=== PATIENT | male | born 1940 | race Hispanic/Latino ===

== ENCOUNTER 2018-06-03 10:16 | Emergency (ER) | payer MEDICARE ==
[~2018-06-03] VITALS: Ht 157.5 cm; Wt 56.7 kg
[~2018-06-03 10:16] MED LIST: CILOSTAZOL50 MG PO; CLOPIDOGREL75 MG PO; CRESTOR5 MG PO; ENALAPRIL MALE2.5 MG PO; FENOFIBRATE134 MG PO; FLOMAX0.4 MG PO; FOLIC ACID1 MG PO; GLIMEPIRIDE4 MG PO; HUMALOG100 UNIT/3; LANTUS100 UNITS/; MAGNESIUM500 MG PO; METFORMIN HCL1000 MG PO; METHOTREXATE2.5 MG PO; OXYBUTYNIN CHLOR5 MG PO; SLO-NIACIN500 MG PO; ULTRACET TABLE1 EACH PO
--- OUTSIDE RECORDS SUMMARY | 2018-06-03 10:19 | XMS REPORT | Clinical Summary ---
Author Author [facility] Organization [facility] Address Unknown Phone Unavailable Care Team Providers Care Gasoline [employer] Name Role Phone Asked, No Pcp PCP Unavailable Allergies Comments Active Allergy Reactions Severity Noted Date Specifically pecans! Chocolate Flavor 12/07/2012 Lemon Juice Itching 12/07/2012 Other=redness North Powder Itching, 12/07/2012 Other (See Comments) Penicillins Anaphylaxis High Pineapple Itching 12/07/2012 Medications End Date Status Medication Sig Dispensed Refills Start Date Active cholecalciferol, vitamin Take 50,000 0 D3, 50,000 unit tablet Units by mouth. Active cilostazol (PLETAL) 50 MG Take 50 mg by 0 tablet mouth. Active clopidogrel (PLAVIX) 75 Take 75 mg by 0 mg tablet mouth. Active enalapril (VASOTEC) 5 MG Take 5 mg by 0 tablet mouth. Active fenofibrate micronized Take 134 mg 0 (LOFIBRA) 134 MG capsule by mouth. Active fluticasone (FLONASE) 50 1 spray into 0 mcg/actuation nasal spray each nostril. Active folic acid (FOLVITE) 1 MG Take 1 mg by 0 tablet mouth. Active glimepiride (AMARYL) 4 MG Take 4 mg by 0 tablet mouth. Active insulin GLARGINE (LANTUS) Inject 45 0 100 unit/mL injection Units under (vial) the skin. Active magnesium gluconate Take 500 mg 0 (MAGONATE) 27.5 mg (500 by mouth. mg) tablet Active metFORMIN (GLUCOPHAGE) Take 1,000 mg 0 1,000 mg tablet by mouth. Active niacin 500 MG tablet Take 500 mg 0 by mouth. Active rosuvastatin (CRESTOR) 5 Take 5 mg by 0 MG tablet mouth. Active tamsulosin (FLOMAX) 0.4 Take 0.4 mg 0 mg capsule,extended by mouth. release 24hr Active lancets misc Use as 0 instructed 7 Active blood-glucose meter Use as 0 (ACCU-CHEK NEO PLUS directed 7 METER) misc Active albuterol (PROAIR Inhale 2 0 HFA,PROVENTIL puffs. 7 HFA,VENTOLIN HFA) 90 mcg/actuation inhaler Active oxybutynin XL Take 10 mg by 0 (DITROPAN-XL) 10 MG 24 hr mouth. tablet Active insulin asp prt-insulin Inject under 0 ASPART (NovoLOG 70/30) the skin. 100 unit/mL (70-30) injection Active Problems No known active problems Social History Date Tobacco Use Types Packs/Day Years Used Former Smoker Alcohol Use Drinks/Week oz/Week Comments No Sex Assigned at Date Recorded Not on file Industry Job Start Date Occupation Not on file Not on file Not on file Travel End Travel History Travel Start No recent travel history available. Last Filed Vital Signs Not on file Plan of Treatment Health Maintenance Due Date Last Done Comments SHINGLES VACCINES (1 of 1992 2) INFLUENZA VACCINE 11/26/2017 01/19/2016, 01/03/2015, 01/25/2014, Additional history exists PNEUMOCOCCAL Completed 01/25/2014 POLYSACCHARIDE VACCINE AGE 65 AND OVER PNEUMOCOCCAL-13 Completed 03/17/2015 Results Not on fileafter 06/02/2017 Insurance Payer Benefit Subscriber ID Type Phone Address Plan / Group [facility] [facility] H[facility] ADVANTAGE [facility] jayden (Home) [place] [address] Advance Directives Patient has advance care planning documents on file. For more information, deo timmons contact: Bang Murray [address] [place] [address]
--- OUTSIDE RECORDS SUMMARY | 2018-06-03 10:21 | XMS REPORT ---
Author Author [facility] Address Unknown Phone Unavailable Care Team Providers Care Lab Technician Name Role Phone DORIS ARAIZA Unavailable Unavailable SHERIF GUEVARA Unavailable Unavailable MIKAYLA MARTINEZ Unavailable Unavailable MORTAZAVI, ALI Unavailable Unavailable MARY ANNE MORRIS Unavailable Unavailable KAROLINA ROMERO Unavailable Unavailable YA, GRICEL Unavailable Unavailable SABRINA GEIGER Unavailable Unavailable TRAVIS AVILES Unavailable Unavailable VANESSA JUSTIN Unavailable Unavailable Problems This patient has no known problems. Allergies, Adverse Reactions, Alerts This patient has no known allergies or adverse reactions. Medications This patient has no known medications. Results Test Description Test Time Test Comments Text Results Atomic Results Result Comments FUNGUS CULTURE + SMEAR 2018-06-02 16:27:00 CULTURE (BEAKER) (test tquz=2670) No fungus isolated in 28 days FUNGUS SMEAR (BEAKER) (test rvob=7780) No fungi seen [id number] 15:00:00Medical Cytology Report Case: [id number] Authorizing Provider: Apollo Romero MD Collected: 05/08/2018 1438 Ordering Location: [address] Received: 05/11/2018 0957 Service Pathologist: Shani Gonzalez MD Specimen: Lung, Left Upper Lobe, BAL LEFT UPPER LOBE LUNG BAL (CYTOSPINS): - NEGATIVE FOR MALIGNANCY - THE GMS STAINS ARE NEGATIVE FOR PNEUMOCYSTIS ORGANISMS AND OTHER FUNGI. - NO VIRAL INCLUSIONS ARE SEEN. - ACUTE INFLAMMATORY CELLS, NOT PROMINENT Signing Pathologist Direct Phone Line: [phone] signed by Shani Gonzalez MD on 05/11/2018 at 3:00 [id number], [id number] infiltrates, history of small cell carcinoma, status post chemo radiation completed 01/2018LEFT UPPER LOBE LUNG BAL32 mls in cytorich red; 3 cytospins, 1 GMS Collected: [id number]: [id number] BAL sample shows respiratory epithelial cells, pulmonary alveolar macrophages, and some acute inflammatory cells, the latter not abundant. Other significant features are not notedSatisfactoryThe interpretation of this case included the use of immunohistochemistry or special stains. GMS Immunohistochemistry technical testing was performed at [facility], Pathology Laboratory where it was developed and its performance charac teristics were determined. It has not been cleared or approved by the U.S. Food and Drug Administration. The FDA has determined that such clearance or approval is not necessary. The test is used for clinical purposes. It should not be regar ded as investigational or for research. This laboratory is certified under the [facility] Laboratory Improvement Amendments of 1988 (CLIA-88) as qualified to perf orm high complexity clinical laboratory testing.[facility] , Department of Pathology, [address] [place] [address], [facility], [facility] of [facility]ology, [address] [place] [address], [facility], Departme nt of Pathology, [address] [place] [address], BRONCHIAL CULTURE + GRAM [id number] 12:25:00* Test Item Value Reference Range Comments CULTURE (BEAKER) (test eoej=0008) 2+ Normal respiratory kostas present GRAM STAIN RESULT (BEAKER) (test hgrg=5092) 2+ WBCs GRAM STAIN RESULT (BEAKER) (test fbxo=05781) 2+ gram positive cocci in chains and pairs GRAM STAIN RESULT (BEAKER) (test alql=46659) <1+ gram positive cocci in clusters GRAM STAIN RESULT (BEAKER) (test egow=897060) <1+ gram variable rods CYTOLOGY [id number] 11:01:00* Test Item Value Reference Range Comments CYTOLOGY RESULT POINTER (BEAKER) (test ckbg=3622) See Separate Report POCT-GLUCOSE [id number] 08:15:00* Test Item Value Reference Range Comments POC-GLUCOSE METER (BEAKER) (test nonz=0100) 219 mg/dL 70-110 TESTED AT [place] [address] BASIC METABOLIC [id number] 05:27:00* Test Item Value Reference Range Comments SODIUM (BEAKER) (test oqtk=427) 137 meq/L 136-145 POTASSIUM (BEAKER) (test hvgi=794) 4.2 meq/L 3.5-5.1 CHLORIDE (BEAKER) (test mtzz=146) 103 meq/L 98-107 CO2 (BEAKER) (test awza=386) 27 meq/L 22-29 BLOOD UREA NITROGEN (BEAKER) (test oycf=388) 35 mg/dL 7-21 CREATININE (BEAKER) (test wijz=944) 1.03 mg/dL 0.57-1.25 GLUCOSE RANDOM (BEAKER) (test zgde=269) 187 mg/dL 70-105 CALCIUM (BEAKER) (test xjsp=445) 9.5 mg/dL 8.4-10.2 EGFR (BEAKER) (test itma=3947) 70 mL/min/1.73 sq m ESTIMATED GFR IS NOT ACCURATE CREATININE CLEARANCE IN PREDICTING GLOMERULAR FILTRATION RATE. ESTIMATED GFR IS NOT APPLICABLE FOR DIALYSIS PATIENTS. POCT-GLUCOSE [id number] 21:33:00* Test Item Value Reference Range Comments POC-GLUCOSE METER (BEAKER) (test cvpx=0448) 218 mg/dL 70-110 TESTED AT [address] [address] POCT-GLUCOSE [id number] 18:50:00* Test Item Value Reference Range Comments POC-GLUCOSE METER (BEAKER) (test flvt=7540) 95 mg/dL 70-110 TESTED AT [address] [address] POCT-GLUCOSE [id number] 11:59:00* Test Item Value Reference Range Comments POC-GLUCOSE METER (BEAKER) (test osnv=7882) 271 mg/dL 70-110 TESTED AT [address] [address] POCT-GLUCOSE [id number] 08:17:00* Test Item Value Reference Range Comments POC-GLUCOSE METER (BEAKER) (test upqp=7973) 338 mg/dL 70-110 TESTED AT [address] [address] SPIN/CONCENTRATION [id number] 01:48:00* Test Item Value Reference Range Comments CONCENTRATION CHARGED (BEAKER) (test mxck=6230) Done POCT-GLUCOSE [id number] 21:11:00* Test Item Value Reference Range Comments POC-GLUCOSE METER (BEAKER) (test pdod=9223) 355 mg/dL 70-110 Notified SUSAN BALBUENA/TESTED AT [address] [address] BODY FLUID CELL COUNT WITH [id number] 17:45:00* Test Item Value Reference Range Comments APPEARANCE FLUID (BEAKER) (test bfqg=506) Hazy Clear COLOR FLUID (BEAKER) (test xvhs=702) [place] Colorless, Straw RBC FLUID (BEAKER) (test bdoh=178) 1830 /cu mm <=1 ADJUSTED WBC FLUID (BEAKER) (test fqau=2783) 225 /cu mm <=5 LINING CELLS (BEAKER) (test odme=0151) 5 /cu mm <=1 NEUTROPHILS FLUID (BEAKER) (test mscb=0380) 18 % LYMPHS FLUID (BEAKER) (test yzqc=034) 14 % MONO/MACROPHAGE FLUID (BEAKER) (test yvui=182) 68 % EOSINOPHILS FLUID (BEAKER) (test cqix=543) 0 % BASO FLUID (BEAKER) (test xeup=342) 0 % CONTAINER BODY FLUID (BEAKER) (test evok=0623) EDTA Tube POCT-GLUCOSE [id number] 17:04:00* Test Item Value Reference Range Comments POC-GLUCOSE METER (BEAKER) (test gbnw=8534) 220 mg/dL 70-110 TESTED AT [address] [address] POCT-GLUCOSE [id number] 15:28:00* Test Item Value Reference Range Comments POC-GLUCOSE METER (BEAKER) (test kvuk=0835) 236 mg/dL 70-110 TESTED AT [address] [address] POCT-GLUCOSE [id number] 13:46:00* Test Item Value Reference Range Comments POC-GLUCOSE METER (BEAKER) (test updl=4636) 345 mg/dL 70-110 TESTED AT [address] [address] POCT-GLUCOSE [id number] 12:54:00* Test Item Value Reference Range Comments POC-GLUCOSE METER (BEAKER) (test tbnt=8275) 381 mg/dL 70-110 Baby tested Mother ID used/TESTED AT [facility] [address] [facility] [address] CBC W/PLT COUNT & AUTO [id number] 10:50:00* Test Item Value Reference Range Comments WHITE BLOOD CELL COUNT (BEAKER) (test oaqy=092) 8.8 K/ L 3.5-10.5 RED BLOOD CELL COUNT (BEAKER) (test vpdn=871) 3.31 M/ L 4.63-6.08 HEMOGLOBIN (BEAKER) (test skwo=510) 9.4 GM/DL 13.7-17.5 HEMATOCRIT (BEAKER) (test pwne=948) 28.0 % 40.1-51.0 MEAN CORPUSCULAR VOLUME (BEAKER) (test cboz=556) 84.6 fL 79.0-92.2 MEAN CORPUSCULAR HEMOGLOBIN (BEAKER) (test exse=317) 28.4 pg 25.7-32.2 MEAN CORPUSCULAR HEMOGLOBIN CONC (BEAKER) (test gqam=201) 33.6 GM/DL 32.3-36.5 RED CELL DISTRIBUTION WIDTH (BEAKER) (test hjue=900) 11.6 % 11.6-14.4 PLATELET COUNT (BEAKER) (test gwhz=408) 153 K/CU MM 150-450 MEAN PLATELET VOLUME (BEAKER) (test asyu=031) 10.9 fL 9.4-12.4 NUCLEATED RED BLOOD CELLS (BEAKER) (test ujdp=318) 0 /100 WBC 0-0 NEUTROPHILS RELATIVE PERCENT (BEAKER) (test pefk=247) 91 % LYMPHOCYTES RELATIVE PERCENT (BEAKER) (test iflh=305) 5 % MONOCYTES RELATIVE PERCENT (BEAKER) (test fpri=432) 3 % EOSINOPHILS RELATIVE PERCENT (BEAKER) (test emkf=232) 0 % BASOPHILS RELATIVE PERCENT (BEAKER) (test piyf=423) 0 % NEUTROPHILS ABSOLUTE COUNT (BEAKER) (test acgv=039) 8.02 K/ L 1.78-5.38 LYMPHOCYTES ABSOLUTE COUNT (BEAKER) (test hqww=599) 0.48 K/ L 1.32-3.57 MONOCYTES ABSOLUTE COUNT (BEAKER) (test oozp=295) 0.25 K/ L 0.30-0.82 EOSINOPHILS ABSOLUTE COUNT (BEAKER) (test erjr=557) 0.00 K/ L 0.04-0.54 BASOPHILS ABSOLUTE COUNT (BEAKER) (test srik=809) 0.01 K/ L 0.01-0.08 IMMATURE GRANULOCYTES-RELATIVE PERCENT (BEAKER) (test enls=7490) 1 % 0-1 PT/[id number] 10:36:00* Test Item Value Reference Range Comments PROTIME (BEAKER) (test qbga=656) 13.8 seconds 11.7-14.7 INR (BEAKER) (test uhok=206) 1.0 <=5.9 PARTIAL THROMBOPLASTIN TIME (BEAKER) (test tuux=746) 35.0 seconds 22.5-36.0 RECOMMENDED COUMADIN/WARFARIN INR THERAPY RANGESSTANDARD DOSE: 2.0 - 3.0 Inclu shay: PROPHYLAXIS for venous thrombosis, systemic embolization; TREATMENT for lu ous thrombosis and/or pulmonary embolus.HIGH RISK: Target INR is 2.5-3.5 for pat ients with mechanical heart valves.PROTHROMBIN TIME/[id number] 10:35:00* Test Item Value Reference Range Comments PROTIME (BEAKER) (test dahj=432) 13.8 seconds 11.7-14.7 INR (BEAKER) (test srch=685) 1.0 <=5.9 RECOMMENDED COUMADIN/WARFARIN INR THERAPY RANGESSTANDARD DOSE: 2.0 - 3.0 Inclu shay: PROPHYLAXIS for venous thrombosis, systemic embolization; TREATMENT for lu ous thrombosis and/or pulmonary embolus.HIGH RISK: Target INR is 2.5-3.5 for pat ients with mechanical heart valves.RAD, CHEST, 1 VIEW, NON [id number] 10:17:00Reason for exam:->PNAFINAL REPORT TECHNIQUE: Frontal chest radiograph dated 05/08/2018. CLINICAL HISTORY: PNA COMPARISON STUDY: Chest radiographs dated 02/20/2018 IMPRESSION:Since the prior examination, there appear to be interval increase in the fibrotic lung markings seen bilaterally. No focal consolidation. No pleural effusion or pneumothorax. Cardiomediastinal silhouette is normal in size. No pulmonary edema. Midline sternotomy wires are intact and well aligned. Signed: Osvaldo Lebroneport Verified Date/Time: 05/08/2018 10:17:10 Reading Location: [facility] Radiology Reading Room [id number] 06:20:00* Test Item Value Reference Range Comments MAGNESIUM (BEAKER) (test abjw=889) 1.7 mg/dL 1.6-2.6 BASIC METABOLIC [id number] 06:20:00* Test Item Value Reference Range Comments SODIUM (BEAKER) (test jwky=565) 136 meq/L 136-145 POTASSIUM (BEAKER) (test ebua=693) 4.2 meq/L 3.5-5.1 CHLORIDE (BEAKER) (test yekd=471) 100 meq/L 98-107 CO2 (BEAKER) (test kbls=016) 26 meq/L 22-29 BLOOD UREA NITROGEN (BEAKER) (test nyca=842) 34 mg/dL 7-21 CREATININE (BEAKER) (test zwco=218) 1.24 mg/dL 0.57-1.25 GLUCOSE RANDOM (BEAKER) (test oznb=408) 217 mg/dL 70-105 CALCIUM (BEAKER) (test saxu=982) 9.9 mg/dL 8.4-10.2 EGFR (BEAKER) (test cwcu=5308) 57 mL/min/1.73 sq m ESTIMATED GFR IS NOT ACCURATE CREATININE CLEARANCE IN PREDICTING GLOMERULAR FILTRATION RATE. ESTIMATED GFR IS NOT APPLICABLE FOR DIALYSIS PATIENTS. POCT-GLUCOSE [id number] 22:06:00* Test Item Value Reference Range Comments POC-GLUCOSE METER (BEAKER) (test xhok=2241) 185 mg/dL 70-[address] [facility] [address] [facility] [address] POCT-GLUCOSE [id number] 21:17:00* Test Item Value Reference Range Comments POC-GLUCOSE METER (BEAKER) (test zcrw=7523) 219 mg/dL 70-[address] [facility] [address] [facility] [address] POCT-GLUCOSE [id number] 18:02:00* Test Item Value Reference Range Comments POC-GLUCOSE METER (BEAKER) (test uhxr=7819) 316 mg/dL 70-110 Will Repeat Test/TESTED AT [facility] [address] [facility] [address] TROPONIN [id number] 14:24:00* Test Item Value Reference Range Comments TROPONIN I (BEAKER) (test wznu=038) 0.07 ng/mL 0.00-0.03 Troponin I (TnI) levels must be interpreted in the context of the presenting sym ptoms and the clinical findings. Elevated TnI levels indicate myocardial damage, but are not specific for ischemic heart disease. Elevated TnI levels are seen in patients with other cardiac conditions (including myocarditis and congestive h eart failure), and slight TnI elevations occur in patients with other conditions , including sepsis, renal failure, acidosis, acute neurological disease, and per sistent tachyarrhythmia.POCT-GLUCOSE [id number] 13:02:00* Test Item Value Reference Range Comments POC-GLUCOSE METER (BEAKER) (test autq=7579) 408 mg/dL 70-110 TESTED AT [place] [id number] [facility] [address] POCT-GLUCOSE [id number] 13:02:00* Test Item Value Reference Range Comments POC-GLUCOSE METER (BEAKER) (test dpnw=0382) 347 mg/dL 70-110 TESTED AT [address] [address] RESPIRATORY PANEL [id number] 11:03:00* Test Item Value Reference Range Comments HUMAN METAPNEUMOVIRUS (BEAKER) (test ekmv=4412) Not detected Not detected, Equivocal RHINOVIRUS (BEAKER) (test kfgv=8973) Not detected Not detected, Equivocal INFLUENZA A (BEAKER) (test tpfu=4247) Not detected Not detected, Equivocal INFLUENZA A (NO SUBTYPE) (test uivx=5820) Not detected, Equivocal INFLUENZA A SUBTYPE H1 (BEAKER) (test cymy=2607) Not detected, Equivocal INFLUENZA A SUBTYPE H3 (BEAKER) (test rnku=9882) Not detected, Equivocal INFLUENZA A SUBTYPE H1-2009 (BEAKER) (test lgpy=1286) Not detected, Equivocal INFLUENZA B (BEAKER) (test couc=5966) Not detected Not detected, Equivocal RESPIRATORY SYNCYTIAL VIRUS (BEAKER) (test poqb=0468) Not detected Not detected, Equivocal PARAINFLUENZA VIRUS 1 (BEAKER) (test uipe=3903) Not detected Not detected, Equivocal PARAINFLUENZA VIRUS 2 (BEAKER) (test xuyy=6054) Not detected Not detected, Equivocal PARAINFLUENZA VIRUS 3 (BEAKER) (test wbrn=7236) Not detected Not detected, Equivocal PARAINFLUENZA VIRUS 4 (BEAKER) (test veoh=8370) Not detected Not detected, Equivocal ADENOVIRUS (BEAKER) (test ydup=9166) Not detected Not detected, Equivocal CORONAVIRUS 229E (BEAKER) (test vsgc=1755) Not detected Not detected, Equivocal CORONAVIRUS HKU1 (BEAKER) (test aujk=5946) Not detected Not detected, Equivocal CORONAVIRUS NL63 (BEAKER) (test wlxy=6042) Not detected Not detected, Equivocal CORONAVIRUS OC43 (BEAKER) (test cvoh=6999) Not detected Not detected, Equivocal BORDETELLA PERTUSSIS (BEAKER) (test ianp=1664) Not detected Not detected, Equivocal CHLAMYDOPHILA PNEUMONIAE (BEAKER) (test eptx=5923) Not detected Not detected, Equivocal MYCOPLASMA PNEUMONIAE (BEAKER) (test obfs=6905) Not detected Not detected, Equivocal Other viruses and bacteria not targeted by this PCR panel cannot be excluded; th erefore clinical correlation and follow up of serology, culture results, and oth er molecular studies is required. The results are not intended to be used as the sole means for clinical diagnosis or patient management decisions. This sample was tested at the [facility] using the [employer] rray Respiratory Panel. It is FDA cleared and has been verified and approved by the [facility] for clinical use on nasal swab specim ens. It is not FDA-cleared for use on bronchial wash/lavage samples. However, fo r this sample type, validation was performed and test characteristics were deter mined and approved, by [facility] for clinical use u nder the Clinical Laboratory Improvement Amendments (CLIA) of 1988 requirements. Therefore, FDA clearance is not required. This laboratory is CLIA-certified and [employer] [place] [employer] ([employer])-accredited to perform high complexity t esting.TROPONIN [id number] 05:09:00* Test Item Value Reference Range Comments TROPONIN I (ARIADNA) (test zgvy=309) 0.09 ng/mL 0.00-0.03 Troponin I (TnI) levels must be interpreted in the context of the presenting sym ptoms and the clinical findings. Elevated TnI levels indicate myocardial damage, but are not specific for ischemic heart disease. Elevated TnI levels are seen in patients with other cardiac conditions (including myocarditis and congestive h eart failure), and slight TnI elevations occur in patients with other conditions , including sepsis, renal failure, acidosis, acute neurological disease, and per sistent tachyarrhythmia.B-TYPE NATRIURETIC FACTOR (BNP)2018-05-07 05:06:00* Test Item Value Reference Range Comments B-TYPE NATRIURETIC PEPTIDE (BEAKER) (test tamb=462) 164 pg/mL 0-100 [id number] 05:01:00* Test Item Value Reference Range Comments MAGNESIUM (BEAKER) (test egcp=571) 1.5 mg/dL 1.6-2.6 BASIC METABOLIC [id number] 05:01:00* Test Item Value Reference Range Comments SODIUM (BEAKER) (test iqgj=148) 133 meq/L 136-145 POTASSIUM (BEAKER) (test vaia=867) 4.4 meq/L 3.5-5.1 CHLORIDE (BEAKER) (test epkq=084) 97 meq/L 98-107 CO2 (BEAKER) (test tuyc=202) 25 meq/L 22-29 BLOOD UREA NITROGEN (BEAKER) (test gyhd=529) 21 mg/dL 7-21 CREATININE (BEAKER) (test xine=065) 1.12 mg/dL 0.57-1.25 GLUCOSE RANDOM (BEAKER) (test kpjp=576) 269 mg/dL 70-105 CALCIUM (BEAKER) (test cqot=236) 10.2 mg/dL 8.4-10.2 EGFR (BEAKER) (test jyke=1269) 64 mL/min/1.73 sq m ESTIMATED GFR IS NOT ACCURATE CREATININE CLEARANCE IN PREDICTING GLOMERULAR FILTRATION RATE. ESTIMATED GFR IS NOT APPLICABLE FOR DIALYSIS PATIENTS. CBC W/PLT COUNT & AUTO [id number] 04:49:00* Test Item Value Reference Range Comments WHITE BLOOD CELL COUNT (BEAKER) (test heou=579) 5.2 K/ L 3.5-10.5 RED BLOOD CELL COUNT (BEAKER) (test vuyu=500) 3.37 M/ L 4.63-6.08 HEMOGLOBIN (BEAKER) (test qkow=433) 9.6 GM/DL 13.7-17.5 HEMATOCRIT (BEAKER) (test ubpu=442) 29.1 % 40.1-51.0 MEAN CORPUSCULAR VOLUME (BEAKER) (test zoym=394) 86.4 fL 79.0-92.2 MEAN CORPUSCULAR HEMOGLOBIN (BEAKER) (test ugln=555) 28.5 pg 25.7-32.2 MEAN CORPUSCULAR HEMOGLOBIN CONC (BEAKER) (test zsim=033) 33.0 GM/DL 32.3-36.5 RED CELL DISTRIBUTION WIDTH (BEAKER) (test whxu=436) 11.6 % 11.6-14.4 PLATELET COUNT (BEAKER) (test xbau=849) 140 K/CU MM 150-450 MEAN PLATELET VOLUME (BEAKER) (test vkez=790) 10.8 fL 9.4-12.4 NUCLEATED RED BLOOD CELLS (BEAKER) (test ghkd=923) 0 /100 WBC 0-0 NEUTROPHILS RELATIVE PERCENT (BEAKER) (test uwsi=339) 87 % LYMPHOCYTES RELATIVE PERCENT (BEAKER) (test zgsa=865) 10 % MONOCYTES RELATIVE PERCENT (BEAKER) (test lozd=462) 2 % EOSINOPHILS RELATIVE PERCENT (BEAKER) (test xebx=136) 1 % BASOPHILS RELATIVE PERCENT (BEAKER) (test aheb=132) 0 % NEUTROPHILS ABSOLUTE COUNT (BEAKER) (test gjco=422) 4.48 K/ L 1.78-5.38 LYMPHOCYTES ABSOLUTE COUNT (BEAKER) (test mfhg=747) 0.53 K/ L 1.32-3.57 MONOCYTES ABSOLUTE COUNT (BEAKER) (test axfi=646) 0.11 K/ L 0.30-0.82 EOSINOPHILS ABSOLUTE COUNT (BEAKER) (test fcjg=981) 0.03 K/ L 0.04-0.54 BASOPHILS ABSOLUTE COUNT (BEAKER) (test fevv=248) 0.01 K/ L 0.01-0.08 IMMATURE GRANULOCYTES-RELATIVE PERCENT (BEAKER) (test upud=3086) 0 % 0-1 RAPID INFLUENZA A&B [id number] 00:01:00* Test Item Value Reference Range Comments RAPID INFLUENZA A AG (BEAKER) (test szbv=8378) Negative Negative, Inconclusive RAPID INFLUENZA B AG (BEAKER) (test gytl=5311) Negative Negative, Inconclusive CBC W/PLT COUNT & AUTO [id number] 23:38:00* Test Item Value Reference Range Comments WHITE BLOOD CELL COUNT (BEAKER) (test xcyh=795) 6.0 K/ L 3.5-10.5 RED BLOOD CELL COUNT (BEAKER) (test pfxj=128) 3.15 M/ L 4.63-6.08 HEMOGLOBIN (BEAKER) (test enaw=737) 8.9 GM/DL 13.7-17.5 HEMATOCRIT (BEAKER) (test pybz=990) 27.3 % 40.1-51.0 MEAN CORPUSCULAR VOLUME (BEAKER) (test uaou=114) 86.7 fL 79.0-92.2 MEAN CORPUSCULAR HEMOGLOBIN (BEAKER) (test tacq=355) 28.3 pg 25.7-32.2 MEAN CORPUSCULAR HEMOGLOBIN CONC (BEAKER) (test fexl=619) 32.6 GM/DL 32.3-36.5 RED CELL DISTRIBUTION WIDTH (BEAKER) (test lsvp=977) 11.7 % 11.6-14.4 PLATELET COUNT (BEAKER) (test nxrj=645) 135 K/CU MM 150-450 MEAN PLATELET VOLUME (BEAKER) (test oaus=849) 10.1 fL 9.4-12.4 NUCLEATED RED BLOOD CELLS (BEAKER) (test ywot=985) 0 /100 WBC 0-0 NEUTROPHILS RELATIVE PERCENT (BEAKER) (test sbqy=247) 66 % LYMPHOCYTES RELATIVE PERCENT (BEAKER) (test yglf=629) 17 % MONOCYTES RELATIVE PERCENT (BEAKER) (test lccd=069) 11 % EOSINOPHILS RELATIVE PERCENT (BEAKER) (test rhnp=333) 5 % BASOPHILS RELATIVE PERCENT (BEAKER) (test fkgf=892) 1 % NEUTROPHILS ABSOLUTE COUNT (BEAKER) (test hhri=192) 3.91 K/ L 1.78-5.38 LYMPHOCYTES ABSOLUTE COUNT (BEAKER) (test emnn=614) 1.04 K/ L 1.32-3.57 MONOCYTES ABSOLUTE COUNT (BEAKER) (test orwo=099) 0.66 K/ L 0.30-0.82 EOSINOPHILS ABSOLUTE COUNT (BEAKER) (test imft=450) 0.30 K/ L 0.04-0.54 BASOPHILS ABSOLUTE COUNT (BEAKER) (test qrtu=575) 0.04 K/ L 0.01-0.08 IMMATURE GRANULOCYTES-RELATIVE PERCENT (BEAKER) (test rwos=7635) 0 % 0-1 CT, CHEST WITH IV CONTRAST- PE TEST [id number] 21:53:00Reason for exam:-> SHORTNESS OF BREATHReason for exam:->Elevated D dimerWhat is the patient's sedation requirement?->No SedationFINAL REPORT History: Shortness of breath, elevated d-dimer. TECHNIQUE: Helical CT of the chest was performed following the uneventful administration of intravenous contrast utilizing a pulmonary embolus protocol, multiple windows, sagittal and coronal reformations. This exam was performed according to our departmental dose optimization program which includes automated exposure control, adjustment of the mA and/or KV according to the patient's size and/or use of iterative reconstruction technique. FINDINGS: Correlation is made with prior CT of the chest performed October 30, 2017. The heart is mildly enlarged. Moderate atherosclerotic calcification of the thoracic aorta. The heart, mediastinum and great vessels are otherwise unremarkable. Specifically, there are no filling defects identified in the pulmonary arteries to suggest acute pulmonary emboli. No pathologic mediastinal or hilar adenopathy. 15 mm low-density nodule is pr esent in the posterior and inferior aspect of the right thyroid lobe, similar to the previous study. Thyroid gland is otherwise unremarkable. Central airways are patent. Patchy bilateral pulmonary airspace opacity is present and has increased significantly since the previous study. Mass in the periphery of the left upper lobe abutting the pleura persists but is less conspicuous than on the previous examination. This mass has been previously sampled by CT guidance. No new susp icious pulmonary nodules or masses are identified. No pleural effusions. Bronchi ectasis is noted in both lower lobes. Images obtained through the upper abdomen show a 15 mm low-density (0 Hounsfield units) lesion in the posterior lateral as pect of the right renal midpole, likely a benign cyst, but impossible to charact erize more definitively on this study. This lesion appears stable compared to pr evious exam. A small gallstone is also noted. Radiopaque density in the gastric antrum likely represents a recently ingested medication. Diffuse degenerative di sc disease is seen throughout the spine. Bones are otherwise unremarkable IMPRES WILLIAM: 1. No evidence for pulmonary embolus. Diffuse bilateral pulmonary airspace disease, possibly pneumonitis. There appears to be a component of chronic under lying interstitial lung disease as well including bronchiectasis. 2. Less conspi cuous mass in the left upper lobe. This lesion has been previously sampled with CT guidance on November 06, 2017. 3. Mild cardiomegaly and moderate atherosclerosis. 4. Probable right renal cyst, unchanged. 5. Cholelithiasis. No CT evidence for acute cholecystitis. Six. 15 mm right thyroid nodule, unchanged since the previo us study. Given the age of patient and size of the nodule, thyroid sonogram is r ecommended for further evaluation. Signed: Uyen Finch MDReport Verified Date/ Time: 05/06/2018 21:53:02 Reading Location: [facility] [id number] Consult Reading Room B-TYPE NATRIURETIC FACTOR (BNP)2018-05-06 20:17:00* Test Item Value Reference Range Comments B-TYPE NATRIURETIC PEPTIDE (BEAKER) (test ubkj=197) 160 pg/mL 0-100 TROPONIN [id number] 20:16:00* Test Item Value Reference Range Comments TROPONIN I (BEAKER) (test yutc=546) 0.08 ng/mL 0.00-0.03 Troponin I (TnI) levels must be interpreted in the context of the presenting sym ptoms and the clinical findings. Elevated TnI levels indicate myocardial damage, but are not specific for ischemic heart disease. Elevated TnI levels are seen in patients with other cardiac conditions (including myocarditis and congestive h eart failure), and slight TnI elevations occur in patients with other conditions , including sepsis, renal failure, acidosis, acute neurological disease, and per sistent tachyarrhythmia.COMPREHENSIVE METABOLIC [id number] 20:10:00* Test Item Value Reference Range Comments TOTAL PROTEIN (BEAKER) (test gctq=327) 7.0 gm/dL 6.0-8.3 ALBUMIN (BEAKER) (test agqc=6752) 3.7 g/dL 3.5-5.0 ALKALINE PHOSPHATASE (BEAKER) (test ayuj=615) 69 U/L 40-150 BILIRUBIN TOTAL (BEAKER) (test xtmp=977) 0.5 mg/dL 0.2-1.2 SODIUM (BEAKER) (test papp=366) 132 meq/L 136-145 POTASSIUM (BEAKER) (test ofuy=974) 4.1 meq/L 3.5-5.1 CHLORIDE (BEAKER) (test pqqw=405) 94 meq/L 98-107 CO2 (BEAKER) (test vqfg=182) 27 meq/L 22-29 BLOOD UREA NITROGEN (BEAKER) (test hxrv=161) 23 mg/dL 7-21 CREATININE (BEAKER) (test pyyf=637) 1.16 mg/dL 0.57-1.25 GLUCOSE RANDOM (BEAKER) (test kjhf=818) 296 mg/dL 70-105 CALCIUM (BEAKER) (test kdso=195) 9.9 mg/dL 8.4-10.2 AST (SGOT) (BEAKER) (test fjzh=153) 17 U/L 5-34 ALT (SGPT) (BEAKER) (test uumx=085) 10 U/L 6-55 EGFR (BEAKER) (test ywoi=4972) 61 mL/min/1.73 sq m ESTIMATED GFR IS NOT ACCURATE CREATININE CLEARANCE IN PREDICTING GLOMERULAR FILTRATION RATE. ESTIMATED GFR IS NOT APPLICABLE FOR DIALYSIS PATIENTS. CREATINE KINASE (CK)2018-05-06 20:10:00* Test Item Value Reference Range Comments CREATINE KINASE TOTAL (BEAKER) (test idip=829) 44 U/L 29-200 PT/[id number] 20:07:00* Test Item Value Reference Range Comments PROTIME (BEAKER) (test lcrz=119) 14.2 seconds 11.7-14.7 INR (BEAKER) (test syft=862) 1.1 <=5.9 PARTIAL THROMBOPLASTIN TIME (BEAKER) (test zbcd=079) 41.0 seconds 22.5-36.0 RECOMMENDED COUMADIN/WARFARIN INR THERAPY RANGESSTANDARD DOSE: 2.0 - 3.0 Inclu shay: PROPHYLAXIS for venous thrombosis, systemic embolization; TREATMENT for lu ous thrombosis and/or pulmonary embolus.HIGH RISK: Target INR is 2.5-3.5 for pat ients with mechanical heart valves.POCT-GLUCOSE [id number] 07:46:00* Test Item Value Reference Range Comments POC-GLUCOSE METER (BEAKER) (test ivgt=8787) 145 mg/dL 70-[address] [facility] [address] [facility] [address] CBC W/PLT COUNT & AUTO [id number] 07:41:00* Test Item Value Reference Range Comments WHITE BLOOD CELL COUNT (BEAKER) (test ygcm=041) 7.7 K/ L 3.5-10.5 RED BLOOD CELL COUNT (BEAKER) (test xayi=969) 3.45 M/ L 4.63-6.08 HEMOGLOBIN (BEAKER) (test bdok=286) 9.9 GM/DL 13.7-17.5 DISCORDANT HGB RESULT COMPARED TO PREVIOUS RESULT; CLINICAL CORRELATION REQUIRED. HEMATOCRIT (BEAKER) (test pahu=140) 30.4 % 40.1-51.0 MEAN CORPUSCULAR VOLUME (BEAKER) (test qefw=023) 88.1 fL 79.0-92.2 MEAN CORPUSCULAR HEMOGLOBIN (BEAKER) (test nxde=148) 28.7 pg 25.7-32.2 MEAN CORPUSCULAR HEMOGLOBIN CONC (BEAKER) (test iqcj=945) 32.6 GM/DL 32.3-36.5 RED CELL DISTRIBUTION WIDTH (BEAKER) (test grnu=740) 16.7 % 11.6-14.4 PLATELET COUNT (BEAKER) (test hufj=453) 25 K/CU MM 150-450 MEAN PLATELET VOLUME (BEAKER) (test ufkr=061) fL 9.4-12.4 Unable to report due to abnormal Platelet population distribution. NUCLEATED RED BLOOD CELLS (BEAKER) (test tpqb=035) 0 /100 WBC 0-0 (CELLAVISION MANUAL DIFF)2018-02-21 07:41:00* Test Item Value Reference Range Comments NEUTROPHILS - REL (CELLAVISION)(BEAKER) (test rsml=6610) 70 % LYMPHOCYTES - REL (CELLAVISION)(BEAKER) (test qtam=2261) 4 % MONOCYTES - REL (CELLAVISION)(BEAKER) (test ksop=9407) 9 % EOSINOPHILS - REL (CELLAVISION)(BEAKER) (test avjb=3234) 1 % BASOPHILS - REL (CELLAVISION)(BEAKER) (test gxch=7706) 1 % METAMYELOCYTES - REL (CELLAVISION)(BEAKER) (test baav=8156) 1 % 0-0 BANDS - REL (CELLAVISION)(BEAKER) (test wuyn=9165) 13 % 0-10 ATYPICAL LYMPHOCYTES - REL (CELLAVISION)(BEAKER) (test bvxn=7206) 1 % 0-0 NEUTROPHILS - ABS (CELLAVISION)(BEAKER) (test rdkj=8433) 5.39 K/ul 1.78-5.38 LYMPHOCYTES - ABS (CELLAVISION)(BEAKER) (test eeck=9326) 0.31 K/ul 1.32-3.57 MONOCYTES - ABS (CELLAVISION)(BEAKER) (test xvzb=2248) 0.69 K/uL 0.30-0.82 EOSINOPHILS - ABS (CELLAVISION)(BEAKER) (test bzmj=9768) 0.08 K/uL 0.04-0.54 BASOPHILS - ABS (CELLAVISION)(BEAKER) (test fwmk=5929) 0.08 K/uL 0.01-0.08 METAMYELOCYTES - ABS (CELLAVISION)(BEAKER) (test vvup=5521) 0.08 K/uL 0.00-0.00 BANDS - ABS (CELLAVISION)(BEAKER) (test tajp=5244) 1.00 K/uL 0.00-0.80 ATYPICAL LYMPHOCYTES - ABS (CELLAVISION)(BEAKER) (test obmj=2445) 0.08 K/uL 0.00-0.00 TOTAL COUNTED (BEAKER) (test kcya=5265) 100 MANUAL NRBC PER 100 CELLS (BEAKER) (test cmry=3785) 2 /100 WBC 0-0 PLT MORPHOLOGY (BEAKER) (test mkfm=581) Normal TOXIC GRANULATION (BEAKER) (test dkbe=319) Present ANISOCYTOSIS (BEAKER) (test ypkt=223) 1+ few MICROCYTES (BEAKER) (test sucw=583) 1+ few POIKILOCYTES (BEAKER) (test qhts=628) 3+ many ARTIFACT (CELLAVISION)(BEAKER) (test smfh=4235) Present PLATELET CONCENTRATION (CELLAVISION)(BEAKER) (test hcgs=7170) Decreased After blood transfusion completedReceived comment: After blood transfusion compl etedUser comments: Slide comments: [id number] 07:24:00* Test Item Value Reference Range Comments MAGNESIUM (BEAKER) (test towg=532) 1.1 mg/dL 1.6-2.6 BASIC METABOLIC [id number] 07:24:00* Test Item Value Reference Range Comments SODIUM (BEAKER) (test vxsd=131) 142 meq/L 136-145 POTASSIUM (BEAKER) (test qjyq=221) 4.7 meq/L 3.5-5.1 CHLORIDE (BEAKER) (test vppb=048) 104 meq/L 98-107 CO2 (BEAKER) (test mkqw=519) 30 meq/L 22-29 BLOOD UREA NITROGEN (BEAKER) (test ypbj=442) 13 mg/dL 7-21 CREATININE (BEAKER) (test tbjx=155) 0.88 mg/dL 0.57-1.25 GLUCOSE RANDOM (BEAKER) (test pnef=535) 133 mg/dL 70-105 CALCIUM (BEAKER) (test tlgh=188) 9.4 mg/dL 8.4-10.2 EGFR (BEAKER) (test speo=4884) 84 mL/min/1.73 sq m ESTIMATED GFR IS NOT ACCURATE CREATININE CLEARANCE IN PREDICTING GLOMERULAR FILTRATION RATE. ESTIMATED GFR IS NOT APPLICABLE FOR DIALYSIS PATIENTS. POCT-GLUCOSE [id number] 01:19:00* Test Item Value Reference Range Comments POC-GLUCOSE METER (BEAKER) (test ktbg=7146) 200 mg/dL 70-[address] [facility] [address] [facility] [address] RAD, CHEST, 2 [id number] 19:22:00Reason for exam:->ANEMIAReason for exam:-> lung cancer, cough, shortness of breath, symptomatic anemiaFINAL REPORT Comparison: 12/25/2017 TECHNIQUE: 2 views of the chest FINDINGS: Coarse interstitial markings bilaterally again noted, stable. Blunting of the bilateral costophrenic sulci suggestive of trace pleural effusion or thickening is stable. Focal airspace opacity in the left upper lobe presumably representing a previously biopsied lung zone nodule appears grossly stable in size. Cardiac silhouette is enlarged. Postsurgical changes in the mediastinum noted. 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 No acute skeletal abnormality. IMPRESSION: 1. No acute cardiopulmonary disease. Signed: Jonathan Clayeport Verified Date/Time: 02/20/2018 19:22:59 [facility] Sul[place] ctronically signed by: JONATHAN CLAY M.D. on 02/20/2018 07:22 PM CBC W/PLT COUNT & AUTO [id number] 18:23:00* Test Item Value Reference Range Comments WHITE BLOOD CELL COUNT (BEAKER) (test lmcb=582) 5.7 K/ L 3.5-10.5 RED BLOOD CELL COUNT (BEAKER) (test smyz=680) 2.09 M/ L 4.63-6.08 HEMOGLOBIN (BEAKER) (test cdee=831) 5.8 GM/DL 13.7-17.5 HEMATOCRIT (BEAKER) (test efij=725) 18.1 % 40.1-51.0 MEAN CORPUSCULAR VOLUME (BEAKER) (test cliq=159) 86.6 fL 79.0-92.2 MEAN CORPUSCULAR HEMOGLOBIN (BEAKER) (test kyzw=433) 27.8 pg 25.7-32.2 MEAN CORPUSCULAR HEMOGLOBIN CONC (BEAKER) (test vnaw=078) 32.0 GM/DL 32.3-36.5 RED CELL DISTRIBUTION WIDTH (BEAKER) (test tvfs=529) 15.9 % 11.6-14.4 PLATELET COUNT (BEAKER) (test dupq=179) 25 K/CU MM 150-450 MEAN PLATELET VOLUME (BEAKER) (test xlna=977) fL 9.4-12.4 Unable to report due to abnormal Platelet population distribution. NUCLEATED RED BLOOD CELLS (BEAKER) (test dyrn=379) 0 /100 WBC 0-0 (CELLAVISION MANUAL DIFF)2018-02-20 18:23:00* Test Item Value Reference Range Comments NEUTROPHILS - REL (CELLAVISION)(BEAKER) (test edkh=4979) 67 % LYMPHOCYTES - REL (CELLAVISION)(BEAKER) (test zqts=8103) 8 % MONOCYTES - REL (CELLAVISION)(BEAKER) (test rbae=9895) 4 % EOSINOPHILS - REL (CELLAVISION)(BEAKER) (test vxmg=8037) 1 % BASOPHILS - REL (CELLAVISION)(BEAKER) (test uvsz=4238) 1 % BANDS - REL (CELLAVISION)(BEAKER) (test bddc=3387) 18 % 0-10 NEUTROPHILS - ABS (CELLAVISION)(BEAKER) (test cgfk=5599) 3.82 K/ul 1.78-5.38 LYMPHOCYTES - ABS (CELLAVISION)(BEAKER) (test aswg=9546) 0.46 K/ul 1.32-3.57 MONOCYTES - ABS (CELLAVISION)(BEAKER) (test zzmt=5512) 0.23 K/uL 0.30-0.82 EOSINOPHILS - ABS (CELLAVISION)(BEAKER) (test rmsp=5453) 0.06 K/uL 0.04-0.54 BASOPHILS - ABS (CELLAVISION)(BEAKER) (test zone=1044) 0.06 K/uL 0.01-0.08 BANDS - ABS (CELLAVISION)(BEAKER) (test lwbf=0998) 1.03 K/uL 0.00-0.80 TOTAL COUNTED (BEAKER) (test mjkw=4655) 100 PLT MORPHOLOGY (BEAKER) (test nitb=630) Normal DOHLE BODIES (BEAKER) (test bfxt=658) Present TOXIC GRANULATION (BEAKER) (test drqa=422) Present POLYCHROMATOPHILLIC RBCS(BEAKER) (test reix=580) 1+ few HYPOCHROMIA (BEAKER) (test kfle=368) 1+ few ANISOCYTOSIS (BEAKER) (test lchj=728) 2+ moderate MICROCYTES (BEAKER) (test pczs=323) 2+ moderate POIKILOCYTES (BEAKER) (test cqwp=206) 1+ few ROULEAUX (BEAKER) (test ddlw=169) 1+ few ELLIPTOCYTES (BEAKER) (test zlly=738) 1+ few OVALOCYTES (BEAKER) (test wdzh=278) 1+ few TEAR DROP CELLS (BEAKER) (test vpch=094) 1+ few ARTIFACT (CELLAVISION)(BEAKER) (test rddd=1689) Present PLATELET CONCENTRATION (CELLAVISION)(BEAKER) (test xvfv=0274) Decreased Received comment: User comments: Slide comments: BASIC METABOLIC [id number] 18:15:00* Test Item Value Reference Range Comments SODIUM (BEAKER) (test jtih=907) 137 meq/L 136-145 POTASSIUM (BEAKER) (test yftn=465) 3.8 meq/L 3.5-5.1 CHLORIDE (BEAKER) (test kthf=090) 102 meq/L 98-107 CO2 (BEAKER) (test qlmq=808) 25 meq/L 22-29 BLOOD UREA NITROGEN (BEAKER) (test gqco=121) 13 mg/dL 7-21 CREATININE (BEAKER) (test uonb=713) 0.78 mg/dL 0.57-1.25 GLUCOSE RANDOM (BEAKER) (test ptdo=679) 157 mg/dL 70-105 CALCIUM (BEAKER) (test bprk=786) 8.8 mg/dL 8.4-10.2 EGFR (BEAKER) (test nacz=1442) 97 mL/min/1.73 sq m ESTIMATED GFR IS NOT ACCURATE CREATININE CLEARANCE IN PREDICTING GLOMERULAR FILTRATION RATE. ESTIMATED GFR IS NOT APPLICABLE FOR DIALYSIS PATIENTS. URINALYSIS W/ REFLEX URINE [id number] 16:36:00* Test Item Value Reference Range Comments COLOR (BEAKER) (test uwfr=590) Colorless CLARITY (BEAKER) (test kcei=768) Clear SPECIFIC GRAVITY UA (BEAKER) (test mxlr=447) 1.003 1.001-1.035 PH UA (BEAKER) (test jiby=084) 7.0 5.0-8.0 PROTEIN UA (BEAKER) (test aler=324) Negative Negative GLUCOSE UA (BEAKER) (test kosy=034) Negative Negative KETONES UA (BEAKER) (test pdjx=688) Negative Negative BILIRUBIN UA (BEAKER) (test zxod=601) Negative Negative BLOOD UA (BEAKER) (test vkor=433) Negative Negative NITRITE UA (BEAKER) (test hcid=700) Negative Negative LEUKOCYTE ESTERASE UA (BEAKER) (test hass=069) Negative Negative UROBILINOGEN UA (BEAKER) (test fbfm=718) 0.2 mg/dL 0.2-1.0 RBC UA (BEAKER) (test ddii=870) 0 /HPF WBC UA (BEAKER) (test nrjm=517) 0 /HPF SOURCE(BEAKER) (test hzbt=2466) RAD, CHEST, 2 [id number] 14:32:00Reason for exam:->shortness of breathFINAL REPORT TECHNIQUE: Frontal and lateral chest radiographs dated 12/25/2017. CLINICAL HISTORY: Shortness of breath COMPARISON STUDY: Chest radiograph dated 12/12/2017 FINDINGS: No change in diffuse bilateral inters titial lung markings compatible with fibrosis stable, bilateral pleural effusion s with associated atelectasis. No pneumothorax. Cardiomediastinal silhouette is stable in size. No pulmonary edema. Midline sternotomy wires are well aligned. N o fracture. Degenerative changes are seen in the spine. IMPRESSION: Stable exami nation when compared to prior study. Signed: Osvaldo Lebron Date/Time: 12/25/2017 14:32:51 Reading Location: [facility] Radiology Reading Room W/PLT COUNT & AUTO [id number] 13:54:00* Test Item Value Reference Range Comments WHITE BLOOD CELL COUNT (BEAKER) (test nosn=182) 4.0 K/ L 3.5-10.5 RED BLOOD CELL COUNT (BEAKER) (test cpci=757) 3.58 M/ L 4.63-6.08 HEMOGLOBIN (BEAKER) (test qcub=387) 9.8 GM/DL 13.7-17.5 HEMATOCRIT (BEAKER) (test yawg=165) 30.3 % 40.1-51.0 MEAN CORPUSCULAR VOLUME (BEAKER) (test ysyr=192) 84.6 fL 79.0-92.2 MEAN CORPUSCULAR HEMOGLOBIN (BEAKER) (test xcsl=004) 27.4 pg 25.7-32.2 MEAN CORPUSCULAR HEMOGLOBIN CONC (BEAKER) (test epmy=578) 32.3 GM/DL 32.3-36.5 RED CELL DISTRIBUTION WIDTH (BEAKER) (test zvdq=011) 17.4 % 11.6-14.4 PLATELET COUNT (BEAKER) (test ikzj=350) 172 K/CU MM 150-450 MEAN PLATELET VOLUME (BEAKER) (test ensj=241) 11.6 fL 9.4-12.4 NUCLEATED RED BLOOD CELLS (BEAKER) (test mrzk=734) 2 /100 WBC 0-0 (CELLAVISION MANUAL DIFF)2017-12-25 13:54:00* Test Item Value Reference Range Comments NEUTROPHILS - REL (CELLAVISION)(BEAKER) (test scbi=5800) 34 % LYMPHOCYTES - REL (CELLAVISION)(BEAKER) (test vrht=5271) 18 % MONOCYTES - REL (CELLAVISION)(BEAKER) (test buhi=4569) 22 % EOSINOPHILS - REL (CELLAVISION)(BEAKER) (test regk=2521) 3 % METAMYELOCYTES - REL (CELLAVISION)(BEAKER) (test cask=7961) 2 % 0-0 MYELOCYTES - REL (CELLAVISION)(BEAKER) (test pwms=3753) 1 % 0-0 BANDS - REL (CELLAVISION)(BEAKER) (test laon=3527) 17 % 0-10 ATYPICAL LYMPHOCYTES - REL (CELLAVISION)(BEAKER) (test qimo=8614) 2 % 0-0 NEUTROPHILS - ABS (CELLAVISION)(BEAKER) (test zmeb=7574) 1.36 K/ul 1.78-5.38 LYMPHOCYTES - ABS (CELLAVISION)(BEAKER) (test btlt=1674) 0.72 K/ul 1.32-3.57 MONOCYTES - ABS (CELLAVISION)(BEAKER) (test fdwv=7504) 0.88 K/uL 0.30-0.82 EOSINOPHILS - ABS (CELLAVISION)(BEAKER) (test fcix=0281) 0.12 K/uL 0.04-0.54 METAMYELOCYTES - ABS (CELLAVISION)(BEAKER) (test fpsz=2040) 0.08 K/uL 0.00-0.00 MYELOCYTES-ABS (CELLAVISION)(BEAKER) (test cxxg=5740) 0.04 K/uL 0.00-0.00 BANDS - ABS (CELLAVISION)(BEAKER) (test sykn=2875) 0.68 K/uL 0.00-0.80 ATYPICAL LYMPHOCYTES - ABS (CELLAVISION)(BEAKER) (test bsqu=1191) 0.08 K/uL 0.00-0.00 TOTAL COUNTED (BEAKER) (test wqpu=4901) 100 MANUAL NRBC PER 100 CELLS (BEAKER) (test ijty=1601) 2 /100 WBC 0-0 WBC MORPHOLOGY (BEAKER) (test nvmk=302) Normal PLT MORPHOLOGY (BEAKER) (test qrfj=516) Normal POLYCHROMATOPHILLIC RBCS(BEAKER) (test vnin=996) 1+ few ANISOCYTOSIS (BEAKER) (test ktsg=799) 1+ few OVALOCYTES (BEAKER) (test lvza=495) 1+ few ARTIFACT (CELLAVISION)(BEAKER) (test hevi=5184) Present PLATELET CONCENTRATION (CELLAVISION)(BEAKER) (test fewi=1094) Adequate Received comment: User comments: Slide comments: TROPONIN [id number] 13:45:00* Test Item Value Reference Range Comments TROPONIN I (BEAKER) (test btvz=986) 0.23 ng/mL 0.00-0.03 Troponin I (TnI) levels must be interpreted in the context of the presenting sym ptoms and the clinical findings. Elevated TnI levels indicate myocardial damage, but are not specific for ischemic heart disease. Elevated TnI levels are seen in patients with other cardiac conditions (including myocarditis and congestive h eart failure), and slight TnI elevations occur in patients with other conditions , including sepsis, renal failure, acidosis, acute neurological disease, and per sistent tachyarrhythmia.B-TYPE NATRIURETIC FACTOR (BNP)2017-12-25 13:35:00* Test Item Value Reference Range Comments B-TYPE NATRIURETIC PEPTIDE (BEAKER) (test rftz=692) 562 pg/mL 0-100 CREATINE KINASE (CK), TOTAL AND [id number] 13:34:00* Test Item Value Reference Range Comments CREATINE KINASE TOTAL (BEAKER) (test fjyl=507) 57 U/L 29-200 CREATINE KINASE-MB (BEAKER) (test lcxe=971) 0.6 ng/mL 0.0-6.6 CREATINE KINASE-MB INDEX (BEAKER) (test iudm=305) 1.1 % CK-MB Reference Range:<6.7 Normal6.7-10.0 Borderline>10.0 Abnormal HEPATIC FUNCTION [id number] 13:27:00* Test Item Value Reference Range Comments TOTAL PROTEIN (BEAKER) (test hcix=424) 6.5 gm/dL 6.0-8.3 ALBUMIN (BEAKER) (test yadz=5644) 3.5 g/dL 3.5-5.0 BILIRUBIN TOTAL (BEAKER) (test irez=318) 0.7 mg/dL 0.2-1.2 BILIRUBIN DIRECT (BEAKER) (test wtlk=557) 0.3 mg/dL 0.1-0.5 ALKALINE PHOSPHATASE (BEAKER) (test flbz=083) 52 U/L 40-150 AST (SGOT) (BEAKER) (test hjdy=009) 22 U/L 5-34 ALT (SGPT) (BEAKER) (test fzjx=718) 14 U/L 6-55 BASIC METABOLIC [id number] 13:27:00* Test Item Value Reference Range Comments SODIUM (BEAKER) (test xfdw=668) 134 meq/L 136-145 POTASSIUM (BEAKER) (test lnug=487) 3.9 meq/L 3.5-5.1 CHLORIDE (BEAKER) (test spil=630) 102 meq/L 98-107 CO2 (BEAKER) (test iyve=149) 23 meq/L 22-29 BLOOD UREA NITROGEN (BEAKER) (test iqmh=725) 9 mg/dL 7-21 CREATININE (BEAKER) (test fxmq=033) 0.99 mg/dL 0.57-1.25 GLUCOSE RANDOM (BEAKER) (test gxjj=080) 218 mg/dL 70-105 CALCIUM (BEAKER) (test jluq=066) 9.0 mg/dL 8.4-10.2 EGFR (BEAKER) (test izfg=9010) 74 mL/min/1.73 sq m ESTIMATED GFR IS NOT ACCURATE CREATININE CLEARANCE IN PREDICTING GLOMERULAR FILTRATION RATE. ESTIMATED GFR IS NOT APPLICABLE FOR DIALYSIS PATIENTS. [id number] 13:19:00* Test Item Value Reference Range Comments PARTIAL THROMBOPLASTIN TIME (BEAKER) (test sduz=784) 36.3 seconds 22.5-36.0 PROTHROMBIN TIME/[id number] 13:18:00* Test Item Value Reference Range Comments PROTIME (BEAKER) (test oagw=761) 15.7 seconds 11.7-14.7 INR (BEAKER) (test fjfy=279) 1.3 <=5.9 RECOMMENDED COUMADIN/WARFARIN INR THERAPY RANGESSTANDARD DOSE: 2.0 - 3.0 Inclu shay: PROPHYLAXIS for venous thrombosis, systemic embolization; TREATMENT for lu ous thrombosis and/or pulmonary embolus.HIGH RISK: Target INR is 2.5-3.5 for pat ients with mechanical heart valves.POCT-GLUCOSE [id number] 12:17:00* Test Item Value Reference Range Comments POC-GLUCOSE METER (BEAKER) (test cqyv=7378) 302 mg/dL 70-110 Notified SUSAN BALBUENA/TESTED AT [address] [address] POCT-GLUCOSE [id number] 10:19:00* Test Item Value Reference Range Comments POC-GLUCOSE METER (BEAKER) (test mqjo=2503) 171 mg/dL 70-110 TESTED AT [address] [address] POCT-GLUCOSE [id number] 09:41:00* Test Item Value Reference Range Comments POC-GLUCOSE METER (BEAKER) (test innv=8675) 157 mg/dL 70-110 TESTED AT [address] [address] [id number] 04:27:00* Test Item Value Reference Range Comments PHOSPHORUS (BEAKER) (test plom=496) 3.2 mg/dL 2.3-4.7 BASIC METABOLIC [id number] 04:27:00* Test Item Value Reference Range Comments SODIUM (BEAKER) (test afql=349) 136 meq/L 136-145 POTASSIUM (BEAKER) (test htpx=842) 4.2 meq/L 3.5-5.1 CHLORIDE (BEAKER) (test qoke=312) 100 meq/L 98-107 CO2 (BEAKER) (test raby=014) 24 meq/L 22-29 BLOOD UREA NITROGEN (BEAKER) (test ksfa=171) 32 mg/dL 7-21 CREATININE (BEAKER) (test rszv=063) 1.53 mg/dL 0.57-1.25 GLUCOSE RANDOM (BEAKER) (test yjxs=740) 159 mg/dL 70-105 CALCIUM (BEAKER) (test fvjd=938) 9.5 mg/dL 8.4-10.2 EGFR (BEAKER) (test rkmy=4252) 45 mL/min/1.73 sq m ESTIMATED GFR IS NOT ACCURATE CREATININE CLEARANCE IN PREDICTING GLOMERULAR FILTRATION RATE. ESTIMATED GFR IS NOT APPLICABLE FOR DIALYSIS PATIENTS. CBC W/PLT COUNT & AUTO [id number] 04:14:00* Test Item Value Reference Range Comments WHITE BLOOD CELL COUNT (BEAKER) (test ikob=164) 3.7 K/ L 3.5-10.5 RED BLOOD CELL COUNT (BEAKER) (test tmkz=952) 3.20 M/ L 4.63-6.08 HEMOGLOBIN (BEAKER) (test tycq=716) 8.1 GM/DL 13.7-17.5 HEMATOCRIT (BEAKER) (test snbs=812) 25.9 % 40.1-51.0 MEAN CORPUSCULAR VOLUME (BEAKER) (test betz=698) 80.9 fL 79.0-92.2 MEAN CORPUSCULAR HEMOGLOBIN (BEAKER) (test zsvx=271) 25.3 pg 25.7-32.2 MEAN CORPUSCULAR HEMOGLOBIN CONC (BEAKER) (test fwik=315) 31.3 GM/DL 32.3-36.5 RED CELL DISTRIBUTION WIDTH (BEAKER) (test iaxs=176) 17.4 % 11.6-14.4 PLATELET COUNT (BEAKER) (test cwod=097) 97 K/CU MM 150-450 MEAN PLATELET VOLUME (BEAKER) (test jmwg=375) 11.4 fL 9.4-12.4 NUCLEATED RED BLOOD CELLS (BEAKER) (test ijpz=955) 0 /100 WBC 0-0 NEUTROPHILS RELATIVE PERCENT (BEAKER) (test dkrl=137) 75 % LYMPHOCYTES RELATIVE PERCENT (BEAKER) (test xjht=622) 21 % MONOCYTES RELATIVE PERCENT (BEAKER) (test hjkh=976) 1 % EOSINOPHILS RELATIVE PERCENT (BEAKER) (test doqw=037) 1 % BASOPHILS RELATIVE PERCENT (BEAKER) (test emvy=525) 1 % NEUTROPHILS ABSOLUTE COUNT (BEAKER) (test yfwx=146) 2.80 K/ L 1.78-5.38 LYMPHOCYTES ABSOLUTE COUNT (BEAKER) (test qcbq=513) 0.77 K/ L 1.32-3.57 MONOCYTES ABSOLUTE COUNT (BEAKER) (test vkld=875) 0.03 K/ L 0.30-0.82 EOSINOPHILS ABSOLUTE COUNT (BEAKER) (test icrg=253) 0.03 K/ L 0.04-0.54 BASOPHILS ABSOLUTE COUNT (BEAKER) (test wbwl=997) 0.03 K/ L 0.01-0.08 IMMATURE GRANULOCYTES-RELATIVE PERCENT (BEAKER) (test cbwv=6872) 2 % 0-1 POCT-GLUCOSE [id number] 04:03:00* Test Item Value Reference Range Comments POC-GLUCOSE METER (BEAKER) (test icvm=2118) 162 mg/dL 70-110 TESTED AT [address] [address] POCT-GLUCOSE [id number] 00:20:00* Test Item Value Reference Range Comments POC-GLUCOSE METER (BEAKER) (test tyns=8908) 238 mg/dL 70-110 TESTED AT [address] [address] POCT-GLUCOSE [id number] 20:23:00* Test Item Value Reference Range Comments POC-GLUCOSE METER (BEAKER) (test mrrq=6985) 314 mg/dL 70-110 TESTED AT [address] [address] POCT-GLUCOSE [id number] 17:06:00* Test Item Value Reference Range Comments POC-GLUCOSE METER (BEAKER) (test ndpp=4020) 311 mg/dL 70-110 Notified SUSAN BALBUENA/TESTED AT [address] [address] CBC W/PLT COUNT & AUTO [id number] 11:47:00* Test Item Value Reference Range Comments WHITE BLOOD CELL COUNT (BEAKER) (test xblm=937) 3.6 K/ L 3.5-10.5 RED BLOOD CELL COUNT (BEAKER) (test cntr=816) 3.19 M/ L 4.63-6.08 HEMOGLOBIN (BEAKER) (test ugko=908) 7.9 GM/DL 13.7-17.5 HEMATOCRIT (BEAKER) (test tdfa=248) 26.3 % 40.1-51.0 MEAN CORPUSCULAR VOLUME (BEAKER) (test dgku=955) 82.4 fL 79.0-92.2 MEAN CORPUSCULAR HEMOGLOBIN (BEAKER) (test bfwe=763) 24.8 pg 25.7-32.2 MEAN CORPUSCULAR HEMOGLOBIN CONC (BEAKER) (test qkhb=701) 30.0 GM/DL 32.3-36.5 RED CELL DISTRIBUTION WIDTH (BEAKER) (test zsrc=212) 18.1 % 11.6-14.4 PLATELET COUNT (BEAKER) (test ddmp=380) 116 K/CU MM 150-450 MEAN PLATELET VOLUME (BEAKER) (test gqyy=609) 11.0 fL 9.4-12.4 NUCLEATED RED BLOOD CELLS (BEAKER) (test bbiq=943) 0 /100 WBC 0-0 (CELLAVISION MANUAL DIFF)2017-12-14 11:47:00* Test Item Value Reference Range Comments NEUTROPHILS - REL (CELLAVISION)(BEAKER) (test ntbr=5063) 75 % LYMPHOCYTES - REL (CELLAVISION)(BEAKER) (test uuuq=7987) 23 % EOSINOPHILS - REL (CELLAVISION)(BEAKER) (test rwfi=9803) 1 % BASOPHILS - REL (CELLAVISION)(BEAKER) (test dafw=6857) 1 % NEUTROPHILS - ABS (CELLAVISION)(BEAKER) (test szrd=7396) 2.70 K/ul 1.78-5.38 LYMPHOCYTES - ABS (CELLAVISION)(BEAKER) (test dztg=7393) 0.83 K/ul 1.32-3.57 EOSINOPHILS - ABS (CELLAVISION)(BEAKER) (test rdtu=0216) 0.04 K/uL 0.04-0.54 BASOPHILS - ABS (CELLAVISION)(BEAKER) (test iywj=3231) 0.04 K/uL 0.01-0.08 TOTAL COUNTED (BEAKER) (test ivre=7870) 100 WBC MORPHOLOGY (BEAKER) (test afzg=376) Normal PLT MORPHOLOGY (BEAKER) (test pcpv=654) Normal POLYCHROMATOPHILLIC RBCS(BEAKER) (test kpwx=783) 1+ few ANISOCYTOSIS (BEAKER) (test rwgp=884) 1+ few ARTIFACT (CELLAVISION)(BEAKER) (test urth=7290) Present PLATELET CONCENTRATION (CELLAVISION)(BEAKER) (test hbyv=8314) Decreased Received comment: User comments: Slide comments: POCT-GLUCOSE [id number] 11:34:00* Test Item Value Reference Range Comments POC-GLUCOSE METER (BEAKER) (test qrop=7109) 249 mg/dL 70-[address] [facility] [address] [facility] [address] POCT-GLUCOSE [id number] 08:18:00* Test Item Value Reference Range Comments POC-GLUCOSE METER (BEAKER) (test oxqp=8265) 106 mg/dL 70-110 TESTED AT [address] [address] [id number] 05:22:00* Test Item Value Reference Range Comments PHOSPHORUS (BEAKER) (test dowm=719) 3.4 mg/dL 2.3-4.7 BASIC METABOLIC [id number] 05:22:00* Test Item Value Reference Range Comments SODIUM (BEAKER) (test ufry=478) 137 meq/L 136-145 POTASSIUM (BEAKER) (test cppr=685) 4.3 meq/L 3.5-5.1 CHLORIDE (BEAKER) (test cipi=994) 100 meq/L 98-107 CO2 (BEAKER) (test vnhy=393) 28 meq/L 22-29 BLOOD UREA NITROGEN (BEAKER) (test uecx=332) 37 mg/dL 7-21 CREATININE (BEAKER) (test npuw=915) 1.66 mg/dL 0.57-1.25 GLUCOSE RANDOM (BEAKER) (test jocn=457) 103 mg/dL 70-105 CALCIUM (BEAKER) (test oooy=517) 9.3 mg/dL 8.4-10.2 EGFR (BEAKER) (test jity=2895) 41 mL/min/1.73 sq m ESTIMATED GFR IS NOT ACCURATE CREATININE CLEARANCE IN PREDICTING GLOMERULAR FILTRATION RATE. ESTIMATED GFR IS NOT APPLICABLE FOR DIALYSIS PATIENTS. POCT-GLUCOSE [id number] 20:45:00* Test Item Value Reference Range Comments POC-GLUCOSE METER (BEAKER) (test pene=8210) 204 mg/dL 70-110 TESTED AT [address] [address] CREATININE, RANDOM [id number] 19:57:00* Test Item Value Reference Range Comments CREATININE URINE (BEAKER) (test fkjg=897) 47.0 mg/dL Reference Range: No NormalsSODIUM, RANDOM [id number] 19:52:00* Test Item Value Reference Range Comments SODIUM URINE (BEAKER) (test vvyf=555) 93 meq/L Reference Range: No NormalsTROPONIN [id number] 07:09:00* Test Item Value Reference Range Comments TROPONIN I (BEAKER) (test uryc=257) 0.35 ng/mL 0.00-0.03 Troponin I (TnI) levels must be interpreted in the context of the presenting sym ptoms and the clinical findings. Elevated TnI levels indicate myocardial damage, but are not specific for ischemic heart disease. Elevated TnI levels are seen in patients with other cardiac conditions (including myocarditis and congestive h eart failure), and slight TnI elevations occur in patients with other conditions , including sepsis, renal failure, acidosis, acute neurological disease, and per sistent tachyarrhythmia.[id number] 06:07:00* Test Item Value Reference Range Comments PHOSPHORUS (BEAKER) (test meos=042) 4.0 mg/dL 2.3-4.7 BASIC METABOLIC [id number] 06:07:00* Test Item Value Reference Range Comments SODIUM (BEAKER) (test nuln=811) 138 meq/L 136-145 POTASSIUM (BEAKER) (test qajm=413) 3.3 meq/L 3.5-5.1 CHLORIDE (BEAKER) (test liop=177) 99 meq/L 98-107 CO2 (BEAKER) (test rlfv=438) 29 meq/L 22-29 BLOOD UREA NITROGEN (BEAKER) (test foej=056) 46 mg/dL 7-21 CREATININE (BEAKER) (test mtbv=048) 1.62 mg/dL 0.57-1.25 GLUCOSE RANDOM (BEAKER) (test kipd=681) 49 mg/dL 70-105 CALCIUM (BEAKER) (test qtcv=850) 9.1 mg/dL 8.4-10.2 EGFR (BEAKER) (test ymou=4699) 42 mL/min/1.73 sq m ESTIMATED GFR IS NOT ACCURATE CREATININE CLEARANCE IN PREDICTING GLOMERULAR FILTRATION RATE. ESTIMATED GFR IS NOT APPLICABLE FOR DIALYSIS PATIENTS. CBC W/PLT COUNT & AUTO [id number] 05:10:00* Test Item Value Reference Range Comments WHITE BLOOD CELL COUNT (BEAKER) (test cupr=633) 4.9 K/ L 3.5-10.5 RED BLOOD CELL COUNT (BEAKER) (test szfc=301) 3.28 M/ L 4.63-6.08 HEMOGLOBIN (BEAKER) (test xaqe=604) 8.2 GM/DL 13.7-17.5 HEMATOCRIT (BEAKER) (test nxmr=708) 26.6 % 40.1-51.0 MEAN CORPUSCULAR VOLUME (BEAKER) (test ozsd=399) 81.1 fL 79.0-92.2 MEAN CORPUSCULAR HEMOGLOBIN (BEAKER) (test zvhz=234) 25.0 pg 25.7-32.2 MEAN CORPUSCULAR HEMOGLOBIN CONC (BEAKER) (test napc=187) 30.8 GM/DL 32.3-36.5 RED CELL DISTRIBUTION WIDTH (BEAKER) (test jbde=233) 18.7 % 11.6-14.4 PLATELET COUNT (BEAKER) (test tloj=670) 138 K/CU MM 150-450 MEAN PLATELET VOLUME (BEAKER) (test nppk=999) 10.3 fL 9.4-12.4 NUCLEATED RED BLOOD CELLS (BEAKER) (test fmfl=479) 0 /100 WBC 0-0 NEUTROPHILS RELATIVE PERCENT (BEAKER) (test qbxn=892) 79 % LYMPHOCYTES RELATIVE PERCENT (BEAKER) (test xgni=490) 18 % MONOCYTES RELATIVE PERCENT (BEAKER) (test cogp=673) 1 % EOSINOPHILS RELATIVE PERCENT (BEAKER) (test dkwc=622) 2 % BASOPHILS RELATIVE PERCENT (BEAKER) (test rtqo=400) 0 % NEUTROPHILS ABSOLUTE COUNT (BEAKER) (test qtii=181) 3.83 K/ L 1.78-5.38 LYMPHOCYTES ABSOLUTE COUNT (BEAKER) (test srav=184) 0.89 K/ L 1.32-3.57 MONOCYTES ABSOLUTE COUNT (BEAKER) (test kszm=381) 0.04 K/ L 0.30-0.82 EOSINOPHILS ABSOLUTE COUNT (BEAKER) (test uhcq=070) 0.09 K/ L 0.04-0.54 BASOPHILS ABSOLUTE COUNT (BEAKER) (test bhzy=513) 0.00 K/ L 0.01-0.08 IMMATURE GRANULOCYTES-RELATIVE PERCENT (BEAKER) (test vuft=9992) 0 % 0-1 POCT-GLUCOSE [id number] 02:18:00* Test Item Value Reference Range Comments POC-GLUCOSE METER (BEAKER) (test vgcm=9000) 169 mg/dL 70-[address] [facility] [address] [facility] [address] MR, MRA, BRAIN, WITHOUT [id number] 01:57:00Reason for exam:->Ischemic Stroke EvaluationFINAL REPORT MRI Brain without contrast Clinical History: Aphasia, right hemiparesis Technique: MRI of the brain utilizing axial T2, FLAIR, GRE, DWI; sagittal and coronal T1-weighted images. Comparisons: 11/14/2017 Findings: There is no evidence of acute infarct or hemorrhage. There are minimal bilateral subcortical white matter T2 signal abnormalities, suggestive of chronic microangiopathic change. The ventricles and sulci are appropriate for the patient's age without hydrocephalus or midline shift. There are no extra-axial fluid collections. The major intracranial flow- voids are patent. IMPRESSION: No evidence of acute infarct, hemorrhage, or hydrocephalus. MRA Head Clinical History: Aphasia, right hemiparesis Technique: MRA of the head utilizing 3-D kouj-jg-zihcoi technique with 3-D reconstructions. Comparison: None Findings: There is no evidence of intracranial aneurysm, focal stenosis, or branch vessel occlusion. Impression: Unremarkable MRA of the head. MRA Neck Clinical History: Aphasia, right hemiparesis Technique: MRA of the neck utilizing 2-D and 3-D dsin-kn-tukoxe technique, with 3-D reconstructions. Comparison: None Findings: The carotid arteries in the neck are patent including their bifurcations. There is antegrade flow in the vertebral arteries in the neck. Impression: No evidence of hemodynamically significant stenosis in the carotid or vertebral arteries in the neck. Signed: George Espinoza MDR[facility]ort Verified Date/Time: 12/13/2017 01:57:06 Reading Location: [address] Reading Room , MRA, NECK, WITHOUT IV [id number] 01:57:00Reason for exam:->Ischemic Stroke EvaluationFINAL REPORT MRI Brain without contrast Clinical History: Aphasia, right hemiparesis Technique: MRI of the brain utilizing axial T2, FLAIR, GRE, DWI; sagittal and coronal T1- weighted images. Comparisons: 11/14/2017 Findings: There is no evidence of acute infarct or hemorrhage. There are minimal bilateral subcortical white matter T2 signal abnormalities, suggestive of chronic microangiopathic change. The ventricles and sulci are appropriate for the patient's age without hydrocephalus or midline shift. There are no extra-axial fluid collections. The major intracranial flow-voids are patent. IMPRESSION: No evidence of acute infarct, hemorrhage, or hydrocephalus. MRA Head Clinical History: Aphasia, right hemiparesis Technique: MRA of the head utilizing 3-D qdvv-be-aoduok technique with 3-D reconstructions. Comparison: None Findings: There is no evidence of intracranial aneurysm, focal stenosis, or branch vessel occlusion. Impression: Unremarkable MRA of the head. MRA Neck Clinical History: Aphasia, right hemiparesis Technique: MRA of the neck utilizing 2-D and 3-D dpjf-yh-tmguha te chnique, with 3-D reconstructions. Comparison: None Findings: The carotid arter ies in the neck are patent including their bifurcations. There is antegrade flow in the vertebral arteries in the neck. Impression: No evidence of hemodynamical ly significant stenosis in the carotid or vertebral arteries in the neck. Signed : George Espinoza MDReport Verified Date/Time: 12/13/2017 01:57:06 Reading Locati on: [address] Reading Room , BRAIN, WITHOUT [id number] 01:57:00Reason for exam:->Ischemic Stroke EvaluationFINAL REPORT MRI Brain without contrast Clinical History: Aphasia, right hemiparesis Technique: MRI of the brain utilizing axial T2, FLAIR, GRE, DWI; sagittal and coronal T1-weighted images. Comparisons: 11/14/2017 Findings: There is no evidence of acute infarct or hemorrhage. There are minimal bilateral subcortical white matter T2 signal abnormalities, suggestive of chronic microangiopathic change. The ventricles and sulci are appropriate for the patie nt's age without hydrocephalus or midline shift. There are no extra-axial fluid collections. The major intracranial flow-voids are patent. IMPRESSION: No evide nce of acute infarct, hemorrhage, or hydrocephalus. MRA Head Clinical History: Aphasia, right hemiparesis Technique: MRA of the head utilizing 3-D zdkr-jw-wawd ht technique with 3-D reconstructions. Comparison: None Findings: There is no ev idence of intracranial aneurysm, focal stenosis, or branch vessel occlusion. Imp ression: Unremarkable MRA of the head. MRA Neck Clinical History: Aphasia, righ t hemiparesis Technique: MRA of the neck utilizing 2-D and 3-D ydvz-hl-kokcgo te chnique, with 3-D reconstructions. Comparison: None Findings: The carotid arter ies in the neck are patent including their bifurcations. There is antegrade flow in the vertebral arteries in the neck. Impression: No evidence of hemodynamical ly significant stenosis in the carotid or vertebral arteries in the neck. Signed : George Espinoza MDReport Verified Date/Time: 12/13/2017 01:57:06 Reading Locati on: [address] Reading Room -GLUCOSE [id number] 22:21:00* Test Item Value Reference Range Comments POC-GLUCOSE METER (BEAKER) (test rvhz=8200) 103 mg/dL 70-[address] [facility] [address] [facility] [address] POCT-GLUCOSE [id number] 21:47:00* Test Item Value Reference Range Comments POC-GLUCOSE METER (BEAKER) (test bdnq=1704) 69 mg/dL 70-110 TESTED AT [place] [id number] [facility] [address] TROPONIN [id number] 18:12:00* Test Item Value Reference Range Comments TROPONIN I (BEAKER) (test yzur=442) 0.38 ng/mL 0.00-0.03 Troponin I (TnI) levels must be interpreted in the context of the presenting sym ptoms and the clinical findings. Elevated TnI levels indicate myocardial damage, but are not specific for ischemic heart disease. Elevated TnI levels are seen in patients with other cardiac conditions (including myocarditis and congestive h eart failure), and slight TnI elevations occur in patients with other conditions , including sepsis, renal failure, acidosis, acute neurological disease, and per sistent tachyarrhythmia.U/S, RENAL, [id number] 16:34:00Reason for exam:- >NEUROLOGIC PROBLEMReason for exam:->APHASIAFINAL REPORT TECHNIQUE: Grayscale ultrasound of the kidneys and bladder. INDICATION: 37-year-old man with neurologic problem and ectasia. COMPARISON: Abdomen MRI 02/10/2017. FINDINGS: RIGHT KIDNEY: The right kidney measures 10.4 cm. Cortical thickness measures 1.4 cm. No solid mass lesions. 1.9 x 2 x 1.7 cm cyst in the upper pole. No hydronephrosis. Renal artery and vein are patent. LEFT KIDNEY: The left kidney measures 11.6 cm. Cortical thickness measures 1.2 cm. No solid mass lesions. 2.1 x 2 x 1.8 cm cyst in the lower pole. No hydronephrosis. Renal artery and vein are patent. BLADDER: Unremarkable. IMPRESSION:Unremarkable renal ultrasound. Signed: Doc Rodriguez MDReport Verified Date/Time: 12/12/2017 16:34:32 Reading Location: [facility] [id number] Ultrasound Reading Room ONIN [id number] 12:37:00* Test Item Value Reference Range Comments TROPONIN I (BEAKER) (test cfww=387) 0.35 ng/mL 0.00-0.03 Troponin I (TnI) levels must be interpreted in the context of the presenting sym ptoms and the clinical findings. Elevated TnI levels indicate myocardial damage, but are not specific for ischemic heart disease. Elevated TnI levels are seen in patients with other cardiac conditions (including myocarditis and congestive h eart failure), and slight TnI elevations occur in patients with other conditions , including sepsis, renal failure, acidosis, acute neurological disease, and per sistent tachyarrhythmia.CREATINE KINASE (CK), TOTAL AND [id number] 12:20:00* Test Item Value Reference Range Comments CREATINE KINASE TOTAL (BEAKER) (test rfps=903) 46 U/L 29-200 CREATINE KINASE-MB (BEAKER) (test lvpq=234) 1.6 ng/mL 0.0-6.6 CREATINE KINASE-MB INDEX (BEAKER) (test udwb=435) 3.5 % CK-MB Reference Range:<6.7 Normal6.7-10.0 Borderline>10.0 AbnormalB- TYPE NATRIURETIC FACTOR (BNP)2017-12-12 12:19:00* Test Item Value Reference Range Comments B-TYPE NATRIURETIC PEPTIDE (BEAKER) (test hvqb=929) 608 pg/mL 0-100 BASIC METABOLIC [id number] 12:12:00* Test Item Value Reference Range Comments SODIUM (BEAKER) (test almo=887) 141 meq/L 136-145 POTASSIUM (BEAKER) (test xfle=031) 3.7 meq/L 3.5-5.1 CHLORIDE (BEAKER) (test axkt=227) 100 meq/L 98-107 CO2 (BEAKER) (test nhpo=838) 30 meq/L 22-29 BLOOD UREA NITROGEN (BEAKER) (test lbzo=038) 48 mg/dL 7-21 CREATININE (BEAKER) (test ljpv=459) 1.82 mg/dL 0.57-1.25 GLUCOSE RANDOM (BEAKER) (test govt=386) 110 mg/dL 70-105 CALCIUM (BEAKER) (test qwha=423) 9.5 mg/dL 8.4-10.2 EGFR (BEAKER) (test efqf=7847) 36 mL/min/1.73 sq m ESTIMATED GFR IS NOT ACCURATE CREATININE CLEARANCE IN PREDICTING GLOMERULAR FILTRATION RATE. ESTIMATED GFR IS NOT APPLICABLE FOR DIALYSIS PATIENTS. CBC W/PLT COUNT & AUTO [id number] 12:07:00* Test Item Value Reference Range Comments WHITE BLOOD CELL COUNT (BEAKER) (test apsl=212) 6.6 K/ L 3.5-10.5 RED BLOOD CELL COUNT (BEAKER) (test rywu=775) 3.35 M/ L 4.63-6.08 HEMOGLOBIN (BEAKER) (test hjqg=134) 8.4 GM/DL 13.7-17.5 HEMATOCRIT (BEAKER) (test qpjo=571) 27.5 % 40.1-51.0 MEAN CORPUSCULAR VOLUME (BEAKER) (test iaag=959) 82.1 fL 79.0-92.2 MEAN CORPUSCULAR HEMOGLOBIN (BEAKER) (test whuh=671) 25.1 pg 25.7-32.2 MEAN CORPUSCULAR HEMOGLOBIN CONC (BEAKER) (test fzdk=289) 30.5 GM/DL 32.3-36.5 RED CELL DISTRIBUTION WIDTH (BEAKER) (test tmdj=117) 19.3 % 11.6-14.4 PLATELET COUNT (BEAKER) (test qthw=730) 155 K/CU MM 150-450 MEAN PLATELET VOLUME (BEAKER) (test lhtp=404) 9.9 fL 9.4-12.4 NUCLEATED RED BLOOD CELLS (BEAKER) (test opzu=000) 0 /100 WBC 0-0 NEUTROPHILS RELATIVE PERCENT (BEAKER) (test nmpe=528) 90 % LYMPHOCYTES RELATIVE PERCENT (BEAKER) (test pvbe=759) 8 % MONOCYTES RELATIVE PERCENT (BEAKER) (test ewcz=484) 1 % EOSINOPHILS RELATIVE PERCENT (BEAKER) (test hter=867) 1 % BASOPHILS RELATIVE PERCENT (BEAKER) (test vcwm=560) 0 % NEUTROPHILS ABSOLUTE COUNT (BEAKER) (test gwzu=193) 5.96 K/ L 1.78-5.38 LYMPHOCYTES ABSOLUTE COUNT (BEAKER) (test sohw=449) 0.50 K/ L 1.32-3.57 MONOCYTES ABSOLUTE COUNT (BEAKER) (test risy=963) 0.06 K/ L 0.30-0.82 EOSINOPHILS ABSOLUTE COUNT (BEAKER) (test uvaw=096) 0.06 K/ L 0.04-0.54 BASOPHILS ABSOLUTE COUNT (BEAKER) (test ghuw=726) 0.00 K/ L 0.01-0.08 IMMATURE GRANULOCYTES-RELATIVE PERCENT (BEAKER) (test lvej=1106) 1 % 0-1 [id number] 11:58:00* Test Item Value Reference Range Comments PROTIME (BEAKER) (test qsts=968) 12.5 seconds 11.7-14.7 INR (BEAKER) (test utbt=281) 0.9 <=5.9 PARTIAL THROMBOPLASTIN TIME (BEAKER) (test ovfk=609) 26.4 seconds 22.5-36.0 RECOMMENDED COUMADIN/WARFARIN INR THERAPY RANGESSTANDARD DOSE: 2.0 - 3.0 Inclu shay: PROPHYLAXIS for venous thrombosis, systemic embolization; TREATMENT for lu ous thrombosis and/or pulmonary embolus.HIGH RISK: Target INR is 2.5-3.5 for pat ients with mechanical heart valves.URINALYSIS W/ [id number] 11:57:00 * Test Item Value Reference Range Comments COLOR (BEAKER) (test rjel=598) Light Yellow CLARITY (BEAKER) (test ftfz=694) Clear SPECIFIC GRAVITY UA (BEAKER) (test bhyo=517) 1.006 1.001-1.035 PH UA (BEAKER) (test ixbw=821) 5.0 5.0-8.0 PROTEIN UA (BEAKER) (test hjjv=848) Negative Negative GLUCOSE UA (BEAKER) (test gqcw=982) 50 mg/dL Negative KETONES UA (BEAKER) (test uobx=996) Negative Negative BILIRUBIN UA (BEAKER) (test iyfy=562) Negative Negative BLOOD UA (BEAKER) (test tkbu=094) Negative Negative NITRITE UA (BEAKER) (test qfhz=513) Negative Negative LEUKOCYTE ESTERASE UA (BEAKER) (test cmyn=494) Negative Negative UROBILINOGEN UA (BEAKER) (test fpov=537) 0.2 mg/dL 0.2-1.0 RBC UA (BEAKER) (test gxac=306) < /HPF WBC UA (BEAKER) (test siws=571) 2 /HPF BACTERIA (BEAKER) (test lnmr=950) Rare MUCUS (BEAKER) (test dles=1932) Rare SOURCE(BEAKER) (test wgpw=5815) Urine, Voided RAD, CHEST, 1 VIEW, NON [id number] 11:55:00Reason for exam:->CHEST PAINShould this be performed at the bedside?->YesFINAL REPORT Chest one view INDICATION: Chest pain COMPARISON: 11/26/2017 IMPRESSION: A lateral left upper lobe 3 cm known lung mass is unchanged. Diffuse interstitial opacities are in keeping with pulmonary fibrosis. Superimposed edema or pneumonitis is difficult to exclude. No new opacities are seen. There is pleural thickening and probable right effusion. The cardiac silhouette is enlarged. 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 Signed: Mitchell Muñoz [facility] Verified Date/Time: 12/12/2017 11:55:01 Reading Location: [facility] Radiology Reading Room , BRAIN/STROKE [id number] 11:32:00Reason for exam:->stroke protocolWhat is the patient's sedation requirement?->No SedationFINAL REPORT CT head without contrast. Comparisons: MRI November 14 Reason for exam: Focal neuro deficit, new, fixed or worsening, <6 hoursstroke protocol. Discussion: Multiple axial CT images of the head are provided without contrast evaluated in brain and bone windows. Dose modulation, iterative reconstruction, and/or weight based adjustment of the mA/kV was utilized to reduce the radiation dose to as low as reasonably achievable. There is no CT evidence of intracranial hemorrhage, mass-effect, hydrocephalus, shift, or extra-axial collections. Subtle microvascular changes and symmetric parenchymal volume loss are noted. There is a single polypoid lesion of the left maxillary sinus probably retention cyst. The visualized dural sinus regions, orbital contents, remaining paranasal sinuses, bones and surrounding soft tissues are unremarkable. Impressions: 1. No specific evidence of acute intracranial abnormality. Signed: Uyen Cabaneport Verified Date/Time: 12/12/2017 11:32:58 Reading Location: [address] Neuro Reading Room -GLUCOSE [id number] 11:38:00* Test Item Value Reference Range Comments POC-GLUCOSE METER (BEAKER) (test namz=7376) 324 mg/dL 70-110 Notified SUSAN BALBUENA/TESTED AT [address] [address] POCT-GLUCOSE [id number] 07:24:00* Test Item Value Reference Range Comments POC-GLUCOSE METER (BEAKER) (test ezzf=4295) 201 mg/dL 70-110 TESTED AT [address] [address] [id number] 06:20:00* Test Item Value Reference Range Comments MAGNESIUM (BEAKER) (test spmq=920) 2.0 mg/dL 1.6-2.6 BASIC METABOLIC [id number] 05:33:00* Test Item Value Reference Range Comments SODIUM (BEAKER) (test kptl=150) 138 meq/L 136-145 POTASSIUM (BEAKER) (test acxb=775) 3.8 meq/L 3.5-5.1 CHLORIDE (BEAKER) (test qsib=951) 106 meq/L 98-107 CO2 (BEAKER) (test tlem=049) 24 meq/L 22-29 BLOOD UREA NITROGEN (BEAKER) (test nrkn=461) 13 mg/dL 7-21 CREATININE (BEAKER) (test krnz=262) 0.78 mg/dL 0.57-1.25 GLUCOSE RANDOM (BEAKER) (test pols=652) 162 mg/dL 70-105 CALCIUM (BEAKER) (test xpdw=716) 8.3 mg/dL 8.4-10.2 EGFR (BEAKER) (test qcyv=1606) 97 mL/min/1.73 sq m ESTIMATED GFR IS NOT ACCURATE CREATININE CLEARANCE IN PREDICTING GLOMERULAR FILTRATION RATE. ESTIMATED GFR IS NOT APPLICABLE FOR DIALYSIS PATIENTS. CBC W/PLT COUNT & AUTO [id number] 05:07:00* Test Item Value Reference Range Comments WHITE BLOOD CELL COUNT (BEAKER) (test lzld=706) 9.6 K/ L 3.5-10.5 RED BLOOD CELL COUNT (BEAKER) (test wmbp=831) 3.91 M/ L 4.63-6.08 HEMOGLOBIN (BEAKER) (test zlcc=279) 9.7 GM/DL 13.7-17.5 HEMATOCRIT (BEAKER) (test ejsp=211) 33.1 % 40.1-51.0 MEAN CORPUSCULAR VOLUME (BEAKER) (test nsnd=411) 84.7 fL 79.0-92.2 MEAN CORPUSCULAR HEMOGLOBIN (BEAKER) (test zemd=926) 24.8 pg 25.7-32.2 MEAN CORPUSCULAR HEMOGLOBIN CONC (BEAKER) (test rdaz=174) 29.3 GM/DL 32.3-36.5 RED CELL DISTRIBUTION WIDTH (BEAKER) (test rfcw=337) 20.5 % 11.6-14.4 PLATELET COUNT (BEAKER) (test tfpb=703) 144 K/CU MM 150-450 MEAN PLATELET VOLUME (BEAKER) (test xfvi=686) 10.1 fL 9.4-12.4 NUCLEATED RED BLOOD CELLS (BEAKER) (test yncn=334) 0 /100 WBC 0-0 NEUTROPHILS RELATIVE PERCENT (BEAKER) (test vmgd=699) 75 % LYMPHOCYTES RELATIVE PERCENT (BEAKER) (test qtea=628) 14 % MONOCYTES RELATIVE PERCENT (BEAKER) (test zzys=659) 8 % EOSINOPHILS RELATIVE PERCENT (BEAKER) (test thma=613) 2 % BASOPHILS RELATIVE PERCENT (BEAKER) (test rkwu=746) 1 % NEUTROPHILS ABSOLUTE COUNT (BEAKER) (test jkfy=189) 7.19 K/ L 1.78-5.38 LYMPHOCYTES ABSOLUTE COUNT (BEAKER) (test dfue=441) 1.31 K/ L 1.32-3.57 MONOCYTES ABSOLUTE COUNT (BEAKER) (test vlcg=782) 0.81 K/ L 0.30-0.82 EOSINOPHILS ABSOLUTE COUNT (BEAKER) (test nnim=673) 0.17 K/ L 0.04-0.54 BASOPHILS ABSOLUTE COUNT (BEAKER) (test ipfs=869) 0.05 K/ L 0.01-0.08 IMMATURE GRANULOCYTES-RELATIVE PERCENT (BEAKER) (test nrak=6992) 1 % 0-1 RAD, CHEST, 1 VIEW, NON [id number] 03:41:00Reason for exam:->SOBShould this be performed at the bedside?->YesFINAL REPORT RAD, CHEST, 1 VIEW, NON DEPT INDICATION: SOB COMPARISON: Prior day's exam FINDINGS: Portable frontal view of the chest. IMPRESSION: Support Lines: None. Lungs and pleura: Interstitial congestion/edema has not significantly improved. Stable right effusion. No pneumothorax.Heart and mediastinum: Stable contours. Stable surgical changes.Additional findings: None. Signed: JR Beltran Robert MDReport Verified Date/Time: 11/26/2017 03:41:16 Reading Location: [address] Reading Room -GLUCOSE [id number] 22:12:00* Test Item Value Reference Range Comments POC-GLUCOSE METER (BEAKER) (test nkby=2076) 285 mg/dL 70-110 TESTED AT [address] [address] POCT-GLUCOSE [id number] 18:11:00* Test Item Value Reference Range Comments POC-GLUCOSE METER (BEAKER) (test eyaa=7607) 280 mg/dL 70-110 TESTED AT [address] [address] [id number] 17:28:00* Test Item Value Reference Range Comments MAGNESIUM (BEAKER) (test oekp=241) 2.1 mg/dL 1.6-2.6 BASIC METABOLIC [id number] 17:28:00* Test Item Value Reference Range Comments SODIUM (BEAKER) (test gpjw=408) 135 meq/L 136-145 POTASSIUM (BEAKER) (test yqlz=204) 4.4 meq/L 3.5-5.1 CHLORIDE (BEAKER) (test lobe=212) 103 meq/L 98-107 CO2 (BEAKER) (test voxn=883) 23 meq/L 22-29 BLOOD UREA NITROGEN (BEAKER) (test gerj=585) 12 mg/dL 7-21 CREATININE (BEAKER) (test acvp=874) 0.88 mg/dL 0.57-1.25 GLUCOSE RANDOM (BEAKER) (test lwsm=640) 279 mg/dL 70-105 CALCIUM (BEAKER) (test qtxr=083) 8.4 mg/dL 8.4-10.2 EGFR (BEAKER) (test eyxz=7646) 84 mL/min/1.73 sq m ESTIMATED GFR IS NOT ACCURATE CREATININE CLEARANCE IN PREDICTING GLOMERULAR FILTRATION RATE. ESTIMATED GFR IS NOT APPLICABLE FOR DIALYSIS PATIENTS. POCT-GLUCOSE [id number] 13:16:00* Test Item Value Reference Range Comments POC-GLUCOSE METER (BEAKER) (test grlk=9814) 273 mg/dL 70-110 TESTED AT [address] [address] BASIC METABOLIC [id number] 13:15:00* Test Item Value Reference Range Comments SODIUM (BEAKER) (test ouaa=741) 135 meq/L 136-145 POTASSIUM (BEAKER) (test stau=102) 4.0 meq/L 3.5-5.1 CHLORIDE (BEAKER) (test epfh=609) 104 meq/L 98-107 CO2 (BEAKER) (test goyb=786) 22 meq/L 22-29 BLOOD UREA NITROGEN (BEAKER) (test fyof=920) 12 mg/dL 7-21 CREATININE (BEAKER) (test cabi=711) 0.79 mg/dL 0.57-1.25 GLUCOSE RANDOM (BEAKER) (test wvvz=482) 255 mg/dL 70-105 CALCIUM (BEAKER) (test isxj=092) 8.2 mg/dL 8.4-10.2 EGFR (BEAKER) (test xalt=9466) 96 mL/min/1.73 sq m ESTIMATED GFR IS NOT ACCURATE CREATININE CLEARANCE IN PREDICTING GLOMERULAR FILTRATION RATE. ESTIMATED GFR IS NOT APPLICABLE FOR DIALYSIS PATIENTS. POCT-GLUCOSE [id number] 07:34:00* Test Item Value Reference Range Comments POC-GLUCOSE METER (BEAKER) (test lbpc=7094) 167 mg/dL 70-[address] [facility] [address] [facility] [id number] 06:02:00* Test Item Value Reference Range Comments MAGNESIUM (BEAKER) (test npyj=538) 1.7 mg/dL 1.6-2.6 BASIC METABOLIC [id number] 06:02:00* Test Item Value Reference Range Comments SODIUM (BEAKER) (test ojlu=402) 138 meq/L 136-145 POTASSIUM (BEAKER) (test hlxe=313) 3.4 meq/L 3.5-5.1 CHLORIDE (BEAKER) (test uwyh=575) 108 meq/L 98-107 CO2 (BEAKER) (test kxnx=371) 21 meq/L 22-29 BLOOD UREA NITROGEN (BEAKER) (test qxjb=179) 14 mg/dL 7-21 CREATININE (BEAKER) (test xqjq=473) 0.71 mg/dL 0.57-1.25 GLUCOSE RANDOM (BEAKER) (test bthc=751) 128 mg/dL 70-105 CALCIUM (BEAKER) (test dhmb=844) 8.2 mg/dL 8.4-10.2 EGFR (BEAKER) (test utqk=0032) 108 mL/min/1.73 sq m ESTIMATED GFR IS NOT ACCURATE CREATININE CLEARANCE IN PREDICTING GLOMERULAR FILTRATION RATE. ESTIMATED GFR IS NOT APPLICABLE FOR DIALYSIS PATIENTS. CBC W/PLT COUNT & AUTO [id number] 05:37:00* Test Item Value Reference Range Comments WHITE BLOOD CELL COUNT (BEAKER) (test nxum=677) 11.5 K/ L 3.5-10.5 RED BLOOD CELL COUNT (BEAKER) (test rtfg=769) 4.53 M/ L 4.63-6.08 HEMOGLOBIN (BEAKER) (test vrtv=576) 10.9 GM/DL 13.7-17.5 HEMATOCRIT (BEAKER) (test atww=307) 37.4 % 40.1-51.0 MEAN CORPUSCULAR VOLUME (BEAKER) (test rqcv=042) 82.6 fL 79.0-92.2 MEAN CORPUSCULAR HEMOGLOBIN (BEAKER) (test vkbp=434) 24.1 pg 25.7-32.2 MEAN CORPUSCULAR HEMOGLOBIN CONC (BEAKER) (test bcmj=285) 29.1 GM/DL 32.3-36.5 RED CELL DISTRIBUTION WIDTH (BEAKER) (test hqcn=211) 20.4 % 11.6-14.4 PLATELET COUNT (BEAKER) (test nnem=390) 184 K/CU MM 150-450 MEAN PLATELET VOLUME (BEAKER) (test mrco=888) 10.4 fL 9.4-12.4 NUCLEATED RED BLOOD CELLS (BEAKER) (test igsx=743) 0 /100 WBC 0-0 NEUTROPHILS RELATIVE PERCENT (BEAKER) (test stck=855) 78 % LYMPHOCYTES RELATIVE PERCENT (BEAKER) (test vvic=140) 13 % MONOCYTES RELATIVE PERCENT (BEAKER) (test iqdh=001) 7 % EOSINOPHILS RELATIVE PERCENT (BEAKER) (test xqef=089) 1 % BASOPHILS RELATIVE PERCENT (BEAKER) (test qwee=444) 0 % NEUTROPHILS ABSOLUTE COUNT (BEAKER) (test jwym=291) 8.98 K/ L 1.78-5.38 LYMPHOCYTES ABSOLUTE COUNT (BEAKER) (test firo=943) 1.47 K/ L 1.32-3.57 MONOCYTES ABSOLUTE COUNT (BEAKER) (test rzmc=015) 0.84 K/ L 0.30-0.82 EOSINOPHILS ABSOLUTE COUNT (BEAKER) (test yglw=730) 0.09 K/ L 0.04-0.54 BASOPHILS ABSOLUTE COUNT (BEAKER) (test jqaw=741) 0.04 K/ L 0.01-0.08 IMMATURE GRANULOCYTES-RELATIVE PERCENT (BEAKER) (test bzsy=4192) 1 % 0-1 RAD, CHEST, 1 VIEW, NON [id number] 00:55:00Reason for exam:->sobShould this be performed at the bedside?->YesFINAL REPORT RAD, CHEST, 1 VIEW, NON DEPT INDICATION: sob COMPARISON: Prior day's exam FINDINGS: Portable frontal view of the chest. IMPRESSION: Support Lines: Stable. Lungs and pleura: Unchanged airspace and pleural opacities. No pneumothorax.Heart and mediastinum: Stable contours. Stable surgical changes. Unchanged fracture of the third most superior sternotomy wire.Additional findings: None. Signed: ShaNeftali haddad Verified Date/Time: 11/25/2017 00:55:59 Reading Location: [facility] B1 C013T Transitional Reading Room -GLUCOSE [id number] 18:01:00* Test Item Value Reference Range Comments POC-GLUCOSE METER (BEAKER) (test mmcp=9982) 250 mg/dL 70-[address] [facility] [address] [facility] [address] RAD, CHEST, 1 VIEW, NON [id number] 16:05:00upon admission for central line/endotracheal tube placementReason for exam:->s/p TAVRShould this be performed at the bedside?->YesFINAL REPORT EXAM: Frontal chest radiograph HISTORY PROVIDED: Status post TAVR COMPARISON: 11/06/2017 IMPRESSION:Postsurgical changes of median sternotomy and cardiac valve replacement are noted. A 3.1 cm lateral left upper lobe mass appears to have mildly enlarged consistent with known lung malignancy diagnosed on previous CT guided biopsy performed on 11/06/2017. There are increased interstitial and airspace opacities in both lungs compatible with edema likely superimposed chronic changes. Small bilateral pleural effusions remain suspected. No discernible pneumothorax. The cardiac silhouette remains enlarged. No acute osseous abnormality. Signed: Main Johnson Verified Date/Time: 11/24/2017 16:05:37 Reading Location: [facility] Reading Room Elect ronuc [facility] signed by: MAIN JOHNSON on 11/24/2017 04:05 PM BASIC METABOLIC [id number] 15:45:00* Test Item Value Reference Range Comments SODIUM (BEAKER) (test jqpb=107) 138 meq/L 136-145 POTASSIUM (BEAKER) (test fnct=499) 4.9 meq/L 3.5-5.1 CHLORIDE (BEAKER) (test muqd=607) 109 meq/L 98-107 CO2 (BEAKER) (test clvk=526) 17 meq/L 22-29 BLOOD UREA NITROGEN (BEAKER) (test mqgj=274) 17 mg/dL 7-21 CREATININE (BEAKER) (test jhae=978) 0.77 mg/dL 0.57-1.25 GLUCOSE RANDOM (BEAKER) (test ecmu=450) 230 mg/dL 70-105 CALCIUM (BEAKER) (test ujjv=368) 7.8 mg/dL 8.4-10.2 EGFR (BEAKER) (test kzpe=8996) 98 mL/min/1.73 sq m ESTIMATED GFR IS NOT ACCURATE CREATININE CLEARANCE IN PREDICTING GLOMERULAR FILTRATION RATE. ESTIMATED GFR IS NOT APPLICABLE FOR DIALYSIS PATIENTS. [id number] 15:41:00* Test Item Value Reference Range Comments MAGNESIUM (BEAKER) (test ewfj=369) 1.1 mg/dL 1.6-2.6 HEMOGLOBIN AND [id number] 15:15:00* Test Item Value Reference Range Comments HEMOGLOBIN (BEAKER) (test pxfb=720) 9.8 GM/DL 13.7-17.5 HEMATOCRIT (BEAKER) (test gwuh=214) 33.4 % 40.1-51.0 [id number] 15:07:00* Test Item Value Reference Range Comments ACTIVATED CLOTTING TIME (BEAKER) (test jclb=409) 120 sec TESTED AT [place] [address] [id number] 13:47:00* Test Item Value Reference Range Comments ACTIVATED CLOTTING TIME (BEAKER) (test upmm=528) 263 sec TESTED AT [place] [id number] POCT-GLUCOSE [id number] 07:36:00* Test Item Value Reference Range Comments POC-GLUCOSE METER (BEAKER) (test ghys=0162) 116 mg/dL 70-110 TESTED AT [address] [address] MR, BRAIN, [id number] 10:18:00FINAL REPORT MRI Brain with and without contrast 11/14/2017 10:17 AM CLINICAL HISTORY: small cell lung ca TECHNIQUE: Multiplanar, multisequence MR imaging of the brain was performed, utilizing the following imaging sequences: Axial T1, T2, FLAIR, GRE, DWI/ADC; sagittal T1; postcontrast axial, sagittal, and coronal T1. COMPARISON: None available. FINDINGS: There is no acute infarct, mass, hematoma, hydrocephalus, extra-axial collection, or abnormal intracranial enhancement. There are rare chronic microvascular changes in the supratentorial white matter. There is generalized parenchymal volume loss. There is a prominent cisterna magna. Normal appearing flow-voids are present within the major intracranial vascular structures. The sellar and pineal regions are normal. The craniovertebral junction is intact. The orbits, face, and skull base are without worrisome finding. IMPRESSION: Unremarkable contrast-enhanced examination. Signed: Manny Deleonort Verified Date/Time: 11/14/2017 10:18:48 Reading Location: [address] Neuro Reading Room -[id number] 09:23:00* Test Item Value Reference Range Comments POC-CREATININE (BEAKER) (test vkdn=9930) 1.1 mg/dL 0.6-1.[address] [facility] [address] POC-EGFR (BEAKER) (test sdst=4458) 65 mL/min/1.73M2 TISSUE [id number] 17:24:00Surgical Pathology Report Case: [id number] Authorizing Provider: Apollo Romero MD Collected: 11/06/2017 1024 Ordering Location: [facility] Radiology Main Received: 11/06/2017 1602 Pathologist: Jennifer Rodriguez MD Specimen: Lung, Left A. 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 Intradepartment consultation: Dr. Kian Amado M.D. [id number]; [id number] x1; [phone] x5Left lung massLeft lung mass biopsyThe specimen is received in a formalin-filled container and labeled with the patient's information and labeled "left lung mass biopsy" and consists of one distinct schuler off white core measuring 1.4 cm and multiple stringy fragments of tissue ranging from 0.1 to 0.3 cm. Submitted entirely A1. CG/pl The left lung mass biopsy consists of multiple small needle core tissue that is completely replaced by malignant small blue cell tumor. The tumor cells are arranged in solid sheet and diffuse infiltrative pattern. No lung parenchyma is present. The tumor is very cohesive with salt and pepper nuclear, nuclear molding, smudging and inconspicuous nucleoli. High mitotic figures are present. The immunoh istochemistry stain is performed. The tumor cells are positive for TTF-1, CK7, synaptophysin and CD56. The tumor cells are negative for chromogranin A and CK20 . The Ki-67 proliferation index are very high, over 95% of the tissue. The findi ngs are consistent with a small cell carcinoma of lung. The following special st udies were performed on this case and the interpretation is incorporated in the diagnostic report above:The immunohistochemistry test was developed and its perf ormance characteristics determined by [facility]. It has not been cleared or approved by the U.S. Food and Drug Administ ration. The FDA has determined that such clearance or approval is not necessary. The test is used for clinical purposes. It should not be regarded as investigat ional or for research. This laboratory is certified under the Clinical Laborator y Improvement Amendments of 1988 (CLIA-88) as qualified to perform high complexi ty clinical laboratory testing.CT, BIOPSY, [id number] 15:15:00Reason for exam:->left side peripheral lung massFINAL REPORT CT- guided core biopsy dated 11/06/2017 Name of practitioner performing procedure:Travis Herrera M.D. Names of bilingual office assistant:None Procedure: Core biopsy of the left upper lobe nodule Preprocedure diagnosis:Left upper lobe nodule Postprocedure diagnosis:Left upper lobe nodule Specimens removed:Left upper lobe nodule Estimated blood loss:None Complication:None Conscious sedation: 1 mg Versed and [address] Travis Herrera was responsible for the moderate sedation. Total sedation time: 15 minutes Anesthesia: 1% Xylocaine local anesthesia. Graft/Implants:None Technique: This exam was performed according to our departmental dose-optimization program, which includes automated exposure control, adjustment of the mA and/or kV according to patient size and/or use of interactive reconstruction technique. After obtaining informed consent, CT-guide d core biopsy of the left upper lobe nodule was performed under usual sterile te chnique. After placing a 19-gauge coaxial needle adjacent to the nodule, core bi opsy was performed with a 20-gauge core needle with 3 passes. Patient turned the procedure well. Impression: Successful CT-guided core biopsy of the left upper lobe nodule. Signed: Travis Herrera Verified Date/Time: 11/06/2017 15:15 :08 Reading Location: [facility] B1 C013Y CT Body Reading Room Electronically sign ed by: TRAVIS HERRERA M.D. on 11/06/2017 03:15 PM RAD, CHEST, 1 VIEW, NON DEPT 2017-11-06 13:24:00Pt in Main holdingReason for exam:->sp left lung biopsyShould this be performed at the bedside?->YesFINAL REPORT EXAM: Frontal chest radiograph HISTORY PROVIDED: Status post left lung biopsy COMPARISON: 11/06/2017 IMPRESSION:Coarse interstitial markings persist and not significantly changed since the prior examination. While findings may be chronic, interstitial edema is not excluded. Stable blunting of the right costophrenic angle suggests pleural thickening versus a small pleural effusion. A small left pleural effusion is suspected. There are bibasilar opacities likely representing atelectasis. No discernible pneumothorax. Postsurgical changes are seen in the right lower hemithorax. The cardiac silhouette remains enlarged. Median sternotomy wires are again noted. No acute osseous abnormality. The bones appear demineralized. Signed: Main Johnson Verified Date/Time: 11/06/2017 13:24:19 Reading Location: [facility] Mammo Reading Room , CHEST, 1 VIEW, NON [id number] 11:16:00Reason for exam:->post left lung biopsyShould this be performed at the bedside?->YesFINAL REPORT Two frontal chest images compared to October 28, 2017 Discussion: Coarse lung markings are less well seen on today's study but grossly similar. Left lateral upper lung focal lesion again noted. I could not exclude small right effusion versus pleural thickening. No pneumothorax. Signed: Uyen Caban Verified Date/Time: 11/06/2017 11:16:37 Reading Location: [facility] Radiology Reading Room /[id number] 08:17:00* Test Item Value Reference Range Comments PROTIME (BEAKER) (test gfmu=336) 13.6 seconds 11.7-14.7 INR (BEAKER) (test jetv=736) 1.0 <=5.9 PARTIAL THROMBOPLASTIN TIME (BEAKER) (test tocz=786) 28.4 seconds 22.5-36.0 RECOMMENDED COUMADIN/WARFARIN INR THERAPY RANGESSTANDARD DOSE: 2.0 - 3.0 Inclu shay: PROPHYLAXIS for venous thrombosis, systemic embolization; TREATMENT for lu ous thrombosis and/or pulmonary embolus.HIGH RISK: Target INR is 2.5-3.5 for pat ients with mechanical heart valves.PLATELET [id number] 08:10:00* Test Item Value Reference Range Comments PLATELET COUNT (BEAKER) (test ztuj=713) 185 K/CU MM 150-450 CTA, CHEST, ABDOMEN - PELVIS, FOR [id number] 14:44:00Reason for exam:- >for TAVR eval. to be read by Dr DooleyAddaleksandraum BeginsREPORT STATUS:A Addendum: The angle of delivery is is approximately KOREAN 6 CAU 17. See snapshot for details. The pulmonary finding was discussed with Dr. Odell at the time of dictation on 30 October 2017. Signed: Hardeep Dooley MDReport Verified Date/Time: 11/03/2017 14:44:56 Reading Location: [place] [address] Cardiology MRIAddendum EndsAddendum BeginsREPORT STATUS:A Addendum: I reviewed the nonvascular findings and concur with Dr. Tatum's report. There is a 2.2 x 1.7 cm in diameter somewhat irregular pleural-based lesion in the left upper lobe, worrisome for neoplasm. There is an additional pleural-based process at the extreme right lung base, laterally seen best on image 140 [id number] measuring 12 x 16 mm in diameter containing a peripheral zone of calcification. This is nonspecific. Correlation with either PET scan or biopsy could provide clarifying information was respected both of these lesions. Paraseptal emphysema along with basilar subpleural reticulation can be seen. There is some traction bronchiectasis also noted, particularly in lung base. M ild nonspecific generalized mediastinal adenopathy is also apparent with the lar gest nodes noted in the pretracheal and prevascular regions. Some subcarinal virgilio nopathy is also apparent. A 1.5 cm nodule is noted in the right lobe of the thyr oid which be further evaluated with ultrasonography. Smaller additional thyroid nodules are also seen elsewhere. Mild fatty changes in liver without focal mass. 18 mm in maximum diameter cyst in the upper lateral aspect of the right kidney. Tiny hypodensity in the left renal cortex and extreme right lower pole likely r epresent cysts. There is also a 2.3 cm cyst in the lower pole of the left kidney . Signed: Manolo Rosa MDReport Verified Date/Time: 10/30/2017 15:35:13 Ruthie bravo Location: [place] [address] Angio Body Reading RoomAddendum EndsFINAL REPORT CT angiography of the thoracoabdominal aorta and pelvic arteries, 30 October 2017 INDICATION: This is a 77 year old male with a diagnosis of aortic stenosis, presents for preprocedure TAVR assessment. TECHNIQUE: Spiral acquis ition before and during intravenous contrast administration using a Yaima Whisbit MyFeelBacktector CT scanner. Images were obtained before and during the dynamic passage of intravenous contrast material. Multi-planar 3-D volume-rendering reconstruc tion was performed using an independent workstation interactively by the interpr eting physician as well as the 3-D specialist for optimal visualization of the t horacoabdominal aorta, the pelvic arteries as well as its proximal branches. Ple ase refer to the contrast sheet scanned in the EPIC system for the amount and ro dee of contrast given. This exam was performed according to our departmental dos e-optimisation programme, which includes automated exposure control, adjustment of the mA and/or kV according to patient size and/or use of iterative reconstruc tion technique. Dose modulation, iterative reconstruction, and/or weight based a djustment of the mA/kV was utilized to reduce the radiation dose to as low as re asonably achievable. FINDINGS: VASCULAR: The central pulmonary artery is normal in caliber. The cardiac chambers demonstrate normal atrioventricular and ventri culoarterial concordance, and systemic and pulmonary venous return. The left lu tricle is normal in size. Left atrial enlargement is identified. Mild mitral talib ular calcification is identified in the anterior mitral valve annulus. No perica rdial effusion is identified. Patient is post coronary artery bypass surgery. A left internal mammary artery is identified connecting to the LAD territory and i s patent. The minimum distance is approximately 8 mm behind the chest wall image 47. At this level it is approximately 3 cm from the midline. An occluded bypass graft is identified, that is a Y graft, to the diagonal and left circumflex ter ritory. Finally, there is a bypass graft to the right coronary territory, locate d approximately 12 mm posterior to the sternum at image 92 and is patent connect ing to the RCA territory. Coronary artery origins are normal and diffuse coronar y artery calcification is identified. Patient has a diagnosis of aortic stenosis . Aortic valve is tricuspid. Agatston score is approximately 1623. By planimetry , aortic valve area is 68 sq mm. The location of aortic valvular calcification c an be seen in reformatted data set sent to PACS. Regarding the aorta, there is m ild calcification seen in the aortic root and ascending thoracic aorta; mild to moderate calcification is seen in the transverse arch and descending thoracic ao rta, and moderate circumferential calcification seen in the infrarenal abdominal aorta. No ectasia or aneurysmal dilation is identified. Arch vessel branching p attern is normal. The left common carotid artery arises from the innominate michael ry, a common variant. Nonobstructive calcification is seen in the takeoff of the left and the right subclavian artery proximally. The left subclavian artery, at image 17, measure 6 to 7 mm in diameter. The right subclavian artery, at image eight, measure 6 mm in diameter. The coeliac axis, SMA, FLAQUITA are patent with no o bstructive lesion identified. Single left and two right renal arteries are seen. Nonobstructive calcification is seen in the takeoff of the left renal artery in the left renal artery is widely patent. The right renal arteries are widely pat ent. The common iliac, external iliac, common femoral, and the visualized superf icial femoral arteries, are patent though calcific atherosclerosis identified in the common iliac arteries, more so in the left. See dimensions below for detail s. Dimensions that may be helpful for TAVR as follows: There is only mild calcif ication seen in the aortic root and ascending thoracic aorta. The major and holly r aortic annulus diameter measures 25.1 and 19.4 mm, respectively. The aortic an nulus perimeter measured 70 mm and the cross-sectional area measures 377 mm2. Th e aortic annulus diameter at the traditional LVOT and coronal LVOT measures 18.9 and 21.0 mm, respectively. For reference purpose, per DAI S3 brochure, ginger mmendation are as follows: CT area between 273 to 345 mm2 (20 mm valve); 338 to 430 mm2 (23 mm valve); 430 to 546 mm2 (26 mm valve); 540 to 683 mm2 (29 mm valve ). For reference purpose, per [employer] brochure, recommendation are as follows: CT perimeter between 56.5-62.8 mm (23 mm valve); 62.8-72.3 mm (26 mm v alve); 72.3-81.7 mm (29 mm valve); and 81.7-94.2. mm (34 mm valve). Agatston Sco re is 1623. By planimetry, the aortic valve area is approximately 68 sq mm. The sinus of Valsalva height to the takeoff of the coronary artery ostium, RCC (osorio tole): 12.2 mmThe sinus of Valsalva height to the takeoff of the coronary artery ostium, LCC (diastole): 11.8 mm The sinus of Valsalva diameter, RCC (diastole): 29.3 mmThe sinus of Valsalva diameter, LCC (diastole): 29.3 mmThe sinus of Vals winkler diameter, NCC (diastole): 29.2 mm The sinotubular junction measures approxi mately 28.8 x 28.0 mm The aortic root angulation measures 41.9 degrees. The mini mal and perpendicular abdominal aortic diameter measure 13.2 and 14.3 mm, respec tively. There is no evidence of thoracoabdominal aortic aneurysm or stent ladarius cement present. The minimum and the perpendicular left common iliac artery measu res 7.0 and 7.3 mm, respectively with mild tortuosity and mild calcific atheros clerosis present. The minimum and the perpendicular left external iliac artery m easures 6.1 and 6.2 mm, respectively with mild tortuosity and no calcific athe rosclerosis present. The minimum and the perpendicular left femoral artery measu res 5.3 and 6.7 mm, respectively with minimal tortuosity and mild focal calcifi c atherosclerosis present. The minimum and the perpendicular right common iliac artery measures 6.0 and 7.6 mm, respectively with cdfz-ss-awsriksb tortuosity a nd mild to moderate calcific atherosclerosis present. The minimum and the perpe ndicular right external iliac artery measures 6.0 and 6.3 mm, respectively with prbb-bd-uhcsyper tortuosity and 100 calcific atherosclerosis present. The min imum and the perpendicular right femoral artery measures 6.0 and 7.0 mm, respect ively with minimal tortuosity and mild calcific atherosclerosis present. NONVA SCULAR: Once again of note, hypodensity is identified in the right thyroid lobe, at image one already been described in prior examination, measure slightly grea ter than 1.5 cm. This can be further assessed by dedicated ultrasound scan. The chest wall and mediastinum is remarkable for prior median sternotomy. The RV jakob e wall is in close proximity to the sternum, and in the precontrast series, imag e 32, the minimum distance approximately 3 mm. A number of lymph nodes are seen in the mediastinum, some fatty hilum, that is nonspecific in nature. There is al so a dumb-alcala shaped lymph node identified, in the prevascular area, measure 9 - 10 mm. In the prior PE study, it measured 9 mm. In the lung windows, no obviou s endobronchial lesion is seen. Left basal pleural effusion is identified. Prior examination report suggest the presence of paraseptal emphysematous changes, and subpleural reticulation. More importantly, in the left upper lobe in the perip heral aspect, there is a nodular opacity identified, that was not present in jama or PE study in February 2017. At image 74, it measure 2.2 x 1.7 cm in diameter, with height of 2 cm. See snapshots for details. An addendum will be dictated the reafter regarding the optimal recommendation, including short-term follow-up, ti ssue sampling, versus PET scan. Other potential diagnosis could include infectio n. In the abdomen, the liver and spleen appears unremarkable. Patchy enhancement is identified near the dome of the liver image 164, likely represent vascular s hunting. The liver edge is smooth. No abnormal enhancing structure is identified . The gallbladder, and pancreas appears unremarkable. No acute renal pathology i s seen and no hydronephrosis or perirenal fluid collection is identified. Bilate ral renal cysts are seen, that are water density, that is simple in nature. Ying l is not well assessed by CT angiography as enteric contrast is not given. No ob vious bowel dilation is identified. Fat-containing inguinal hernia is seen espec ially in the left. No free air free fluid seen abdomen and pelvis. In the bony w indows, no acute bony pathology is seen. Some degenerative changes are noted. Th e prostate gland is prominent. The bladder appears unremarkable. In the bony win dows, no acute bony pathology is identified. Some degenerative changes is noted. CONCLUSIONS: 1. Patient has a diagnosis of aortic stenosis. The aortic valve is tricuspid. Agatston score is over 1600. Minimal mitral annular calcification is seen in the anterior mitral valve annulus. Mild calcification seen in the aortic root and ascending thoracic aorta. Dimensions that may be helpful for TAVR as described above. 2. Patient is post coronary artery bypass surgery and the left internal mammary bypass graft and the RCA bypass graft is patent. A Y graft to the left coronary territory is occluded. 3. The central pulmonary artery is no rmal in calibre. Pulmonary findings as described above. When compared to prior P E study in 2017, there is interval development of a nodular opacity is identifie d that measures 2.2 x 1.7 cm in the peripheral aspect of the left upper lobe. Se e above for details. An addendum will be dictated thereafter. 4. Other findings as described above. A hypodensity is identified in the right thyroid lobe, at i mage one already been described in prior examination, measure slightly greater t gagnon 1.5 cm. This can be further assessed by dedicated ultrasound scan. 5. An ad dendum will be dictated by the Enlisted Advisor Radiologist regarding the nonvascular findings. Thank Signed: Hardeep Dooley MDReport Verified Date/Time: 8 13:50:47 Reading Location: [place] [id number] Cardiology MRI -GLUCOSE [id number] 08:42:00* Test Item Value Reference Range Comments POC-GLUCOSE METER (ARIADNA) (test qwse=7565) 185 mg/dL 70-110 TESTED AT [place] [id number] [facility] [address] POCT-GLUCOSE [id number] 23:21:00* Test Item Value Reference Range Comments POC-GLUCOSE METER (BEAKER) (test gbyv=0412) 283 mg/dL 70-110 TESTED AT [address] [address] POCT-GLUCOSE [id number] 18:48:00* Test Item Value Reference Range Comments POC-GLUCOSE METER (BEAKER) (test glnf=7382) 337 mg/dL 70-110 Notified SUSAN BALBUENA/TESTED AT [address] [address] POCT-GLUCOSE [id number] 13:36:00* Test Item Value Reference Range Comments POC-GLUCOSE METER (BEAKER) (test yjax=1061) 214 mg/dL 70-110 TESTED AT [address] [address] POCT-GLUCOSE [id number] 08:43:00* Test Item Value Reference Range Comments POC-GLUCOSE METER (BEAKER) (test ohpa=4605) 199 mg/dL 70-110 TESTED AT [address] [address] BASIC METABOLIC [id number] 05:00:00* Test Item Value Reference Range Comments SODIUM (BEAKER) (test nfwg=401) 138 meq/L 136-145 POTASSIUM (BEAKER) (test rpmt=557) 3.6 meq/L 3.5-5.1 CHLORIDE (BEAKER) (test qvag=945) 100 meq/L 98-107 CO2 (BEAKER) (test qyhm=016) 25 meq/L 22-29 BLOOD UREA NITROGEN (BEAKER) (test hbcj=516) 20 mg/dL 7-21 CREATININE (BEAKER) (test actq=128) 1.03 mg/dL 0.57-1.25 GLUCOSE RANDOM (BEAKER) (test jnre=606) 236 mg/dL 70-105 CALCIUM (BEAKER) (test eaml=381) 9.9 mg/dL 8.4-10.2 EGFR (BEAKER) (test oowv=8621) 70 mL/min/1.73 sq m ESTIMATED GFR IS NOT ACCURATE CREATININE CLEARANCE IN PREDICTING GLOMERULAR FILTRATION RATE. ESTIMATED GFR IS NOT APPLICABLE FOR DIALYSIS PATIENTS. CBC W/PLT COUNT & AUTO [id number] 04:53:00* Test Item Value Reference Range Comments WHITE BLOOD CELL COUNT (BEAKER) (test lqph=345) 7.1 K/ L 3.5-10.5 RED BLOOD CELL COUNT (BEAKER) (test roig=517) 4.80 M/ L 4.63-6.08 HEMOGLOBIN (BEAKER) (test bslp=010) 11.0 GM/DL 13.7-17.5 HEMATOCRIT (BEAKER) (test rbax=376) 37.4 % 40.1-51.0 MEAN CORPUSCULAR VOLUME (BEAKER) (test shnu=192) 77.9 fL 79.0-92.2 MEAN CORPUSCULAR HEMOGLOBIN (BEAKER) (test okcn=884) 22.9 pg 25.7-32.2 MEAN CORPUSCULAR HEMOGLOBIN CONC (BEAKER) (test wxsr=513) 29.4 GM/DL 32.3-36.5 RED CELL DISTRIBUTION WIDTH (BEAKER) (test dvza=355) 18.6 % 11.6-14.4 PLATELET COUNT (BEAKER) (test ilmf=858) 208 K/CU MM 150-450 MEAN PLATELET VOLUME (BEAKER) (test cagh=470) 10.6 fL 9.4-12.4 NUCLEATED RED BLOOD CELLS (BEAKER) (test tmlg=873) 0 /100 WBC 0-0 NEUTROPHILS RELATIVE PERCENT (BEAKER) (test dmay=824) 67 % LYMPHOCYTES RELATIVE PERCENT (BEAKER) (test gffr=954) 21 % MONOCYTES RELATIVE PERCENT (BEAKER) (test krcl=224) 10 % EOSINOPHILS RELATIVE PERCENT (BEAKER) (test xfak=270) 2 % BASOPHILS RELATIVE PERCENT (BEAKER) (test wgak=550) 0 % NEUTROPHILS ABSOLUTE COUNT (BEAKER) (test fizl=892) 4.74 K/ L 1.78-5.38 LYMPHOCYTES ABSOLUTE COUNT (BEAKER) (test jswg=121) 1.45 K/ L 1.32-3.57 MONOCYTES ABSOLUTE COUNT (BEAKER) (test hjxg=448) 0.68 K/ L 0.30-0.82 EOSINOPHILS ABSOLUTE COUNT (BEAKER) (test lcha=028) 0.13 K/ L 0.04-0.54 BASOPHILS ABSOLUTE COUNT (BEAKER) (test hmzu=980) 0.02 K/ L 0.01-0.08 IMMATURE GRANULOCYTES-RELATIVE PERCENT (BEAKER) (test rwdm=5558) 0 % 0-1 POCT-GLUCOSE [id number] 21:11:00* Test Item Value Reference Range Comments POC-GLUCOSE METER (BEAKER) (test qmin=1234) 430 mg/dL 70-110 Notified SUSAN BALBUENA/TESTED AT [address] [address] POCT-GLUCOSE [id number] 12:26:00* Test Item Value Reference Range Comments POC-GLUCOSE METER (BEAKER) (test kbyr=7813) 142 mg/dL 70-110 TESTED AT [address] [address] POCT-GLUCOSE [id number] 07:38:00* Test Item Value Reference Range Comments POC-GLUCOSE METER (BEAKER) (test dgvr=8142) 85 mg/dL 70-110 TESTED AT [address] [address] BASIC METABOLIC [id number] 05:27:00* Test Item Value Reference Range Comments SODIUM (BEAKER) (test kiwx=012) 141 meq/L 136-145 POTASSIUM (BEAKER) (test zblg=589) 4.7 meq/L 3.5-5.1 CHLORIDE (BEAKER) (test ywzp=885) 106 meq/L 98-107 CO2 (BEAKER) (test cled=465) 24 meq/L 22-29 BLOOD UREA NITROGEN (BEAKER) (test fpbw=287) 15 mg/dL 7-21 CREATININE (BEAKER) (test kukf=636) 0.87 mg/dL 0.57-1.25 GLUCOSE RANDOM (BEAKER) (test eezn=428) 107 mg/dL 70-105 CALCIUM (BEAKER) (test oeqn=634) 9.8 mg/dL 8.4-10.2 EGFR (BEAKER) (test toce=6573) 86 mL/min/1.73 sq m ESTIMATED GFR IS NOT ACCURATE CREATININE CLEARANCE IN PREDICTING GLOMERULAR FILTRATION RATE. ESTIMATED GFR IS NOT APPLICABLE FOR DIALYSIS PATIENTS. POCT-GLUCOSE [id number] 21:46:00* Test Item Value Reference Range Comments POC-GLUCOSE METER (BEAKER) (test pvle=0304) 214 mg/dL 70-110 TESTED AT [address] [address] POCT-GLUCOSE [id number] 16:55:00* Test Item Value Reference Range Comments POC-GLUCOSE METER (BEAKER) (test lmme=0239) 326 mg/dL 70-110 TESTED AT [address] [address] POCT-GLUCOSE [id number] 12:59:00* Test Item Value Reference Range Comments POC-GLUCOSE METER (BEAKER) (test oinx=5668) 248 mg/dL 70-110 TESTED AT [address] [address] POCT-GLUCOSE [id number] 08:46:00* Test Item Value Reference Range Comments POC-GLUCOSE METER (BEAKER) (test yfgz=9480) 65 mg/dL 70-110 Notified SUSAN BALBUENA/TESTED AT [address] [address] BASIC METABOLIC [id number] 08:10:00* Test Item Value Reference Range Comments SODIUM (BEAKER) (test jblg=303) 138 meq/L 136-145 POTASSIUM (BEAKER) (test lbiq=086) 3.5 meq/L 3.5-5.1 CHLORIDE (BEAKER) (test wdpv=781) 103 meq/L 98-107 CO2 (BEAKER) (test fqcm=317) 26 meq/L 22-29 BLOOD UREA NITROGEN (BEAKER) (test gqst=617) 14 mg/dL 7-21 CREATININE (BEAKER) (test xuuy=920) 0.84 mg/dL 0.57-1.25 GLUCOSE RANDOM (BEAKER) (test psru=187) 107 mg/dL 70-105 CALCIUM (BEAKER) (test vdqt=437) 9.3 mg/dL 8.4-10.2 EGFR (BEAKER) (test gcfy=7809) 89 mL/min/1.73 sq m ESTIMATED GFR IS NOT ACCURATE CREATININE CLEARANCE IN PREDICTING GLOMERULAR FILTRATION RATE. ESTIMATED GFR IS NOT APPLICABLE FOR DIALYSIS PATIENTS. TROPONIN [id number] 07:09:00* Test Item Value Reference Range Comments TROPONIN I (BEAKER) (test nwrh=524) 0.30 ng/mL 0.00-0.03 Troponin I (TnI) levels must be interpreted in the context of the presenting sym ptoms and the clinical findings. Elevated TnI levels indicate myocardial damage, but are not specific for ischemic heart disease. Elevated TnI levels are seen in patients with other cardiac conditions (including myocarditis and congestive h eart failure), and slight TnI elevations occur in patients with other conditions , including sepsis, renal failure, acidosis, acute neurological disease, and per sistent tachyarrhythmia.CBC W/PLT COUNT & AUTO [id number] 06:40:00* Test Item Value Reference Range Comments WHITE BLOOD CELL COUNT (BEAKER) (test bzlj=814) 7.8 K/ L 3.5-10.5 RED BLOOD CELL COUNT (BEAKER) (test bnpc=036) 4.20 M/ L 4.63-6.08 HEMOGLOBIN (BEAKER) (test thdn=927) 9.5 GM/DL 13.7-17.5 HEMATOCRIT (BEAKER) (test xquy=504) 32.9 % 40.1-51.0 MEAN CORPUSCULAR VOLUME (BEAKER) (test zkgh=964) 78.3 fL 79.0-92.2 MEAN CORPUSCULAR HEMOGLOBIN (BEAKER) (test xcqq=355) 22.6 pg 25.7-32.2 MEAN CORPUSCULAR HEMOGLOBIN CONC (BEAKER) (test cmqo=186) 28.9 GM/DL 32.3-36.5 RED CELL DISTRIBUTION WIDTH (BEAKER) (test bpct=899) 17.5 % 11.6-14.4 PLATELET COUNT (BEAKER) (test ttpj=195) 197 K/CU MM 150-450 MEAN PLATELET VOLUME (BEAKER) (test lbis=054) 10.8 fL 9.4-12.4 NUCLEATED RED BLOOD CELLS (BEAKER) (test hsch=396) 0 /100 WBC 0-0 NEUTROPHILS RELATIVE PERCENT (BEAKER) (test nscz=796) 66 % LYMPHOCYTES RELATIVE PERCENT (BEAKER) (test qegf=618) 23 % MONOCYTES RELATIVE PERCENT (BEAKER) (test raza=939) 8 % EOSINOPHILS RELATIVE PERCENT (BEAKER) (test icju=466) 2 % BASOPHILS RELATIVE PERCENT (BEAKER) (test weny=461) 0 % NEUTROPHILS ABSOLUTE COUNT (BEAKER) (test kbvj=748) 5.12 K/ L 1.78-5.38 LYMPHOCYTES ABSOLUTE COUNT (BEAKER) (test akun=812) 1.81 K/ L 1.32-3.57 MONOCYTES ABSOLUTE COUNT (BEAKER) (test bsyw=864) 0.64 K/ L 0.30-0.82 EOSINOPHILS ABSOLUTE COUNT (BEAKER) (test iigm=286) 0.16 K/ L 0.04-0.54 BASOPHILS ABSOLUTE COUNT (BEAKER) (test fztm=001) 0.03 K/ L 0.01-0.08 IMMATURE GRANULOCYTES-RELATIVE PERCENT (BEAKER) (test xumw=8190) 1 % 0-1 URINALYSIS WITH MICROSCOPIC IF [id number] 05:57:00* Test Item Value Reference Range Comments COLOR (BEAKER) (test rvxf=397) Colorless CLARITY (BEAKER) (test wvks=936) Clear SPECIFIC GRAVITY UA (BEAKER) (test pnrs=475) 1.004 1.001-1.035 PH UA (BEAKER) (test zceh=350) 5.5 5.0-8.0 PROTEIN UA (BEAKER) (test ffxl=575) Negative Negative GLUCOSE UA (BEAKER) (test rmhi=881) 150 mg/dL Negative KETONES UA (BEAKER) (test xcbg=640) Negative Negative BILIRUBIN UA (BEAKER) (test zgim=988) Negative Negative BLOOD UA (BEAKER) (test anru=119) Negative Negative NITRITE UA (BEAKER) (test hlyn=071) Negative Negative LEUKOCYTE ESTERASE UA (BEAKER) (test vxie=758) Negative Negative UROBILINOGEN UA (BEAKER) (test xyev=200) 0.2 mg/dL 0.2-1.0 SOURCE(BEAKER) (test jtwx=2499) TROPONIN [id number] 02:22:00* Test Item Value Reference Range Comments TROPONIN I (BEAKER) (test cbot=532) 0.32 ng/mL 0.00-0.03 Troponin I (TnI) levels must be interpreted in the context of the presenting sym ptoms and the clinical findings. Elevated TnI levels indicate myocardial damage, but are not specific for ischemic heart disease. Elevated TnI levels are seen in patients with other cardiac conditions (including myocarditis and congestive h eart failure), and slight TnI elevations occur in patients with other conditions , including sepsis, renal failure, acidosis, acute neurological disease, and per sistent tachyarrhythmia.COMPREHENSIVE METABOLIC [id number] 20:23:00* Test Item Value Reference Range Comments TOTAL PROTEIN (BEAKER) (test lxju=970) 6.7 gm/dL 6.0-8.3 ALBUMIN (BEAKER) (test geiy=0210) 4.0 g/dL 3.5-5.0 ALKALINE PHOSPHATASE (BEAKER) (test dbqg=823) 60 U/L 40-150 BILIRUBIN TOTAL (BEAKER) (test trcg=775) 0.4 mg/dL 0.2-1.2 SODIUM (BEAKER) (test ltqk=163) 137 meq/L 136-145 POTASSIUM (BEAKER) (test wiay=864) 4.8 meq/L 3.5-5.1 CHLORIDE (BEAKER) (test eqcq=047) 104 meq/L 98-107 CO2 (BEAKER) (test vusy=175) 22 meq/L 22-29 BLOOD UREA NITROGEN (BEAKER) (test fdux=029) 17 mg/dL 7-21 CREATININE (BEAKER) (test ubfq=444) 1.01 mg/dL 0.57-1.25 GLUCOSE RANDOM (BEAKER) (test llbh=459) 332 mg/dL 70-105 CALCIUM (BEAKER) (test upzw=712) 9.3 mg/dL 8.4-10.2 AST (SGOT) (BEAKER) (test hent=925) 18 U/L 5-34 ALT (SGPT) (BEAKER) (test juhn=306) 17 U/L 6-55 EGFR (BEAKER) (test jnmq=2234) 72 mL/min/1.73 sq m ESTIMATED GFR IS NOT ACCURATE CREATININE CLEARANCE IN PREDICTING GLOMERULAR FILTRATION RATE. ESTIMATED GFR IS NOT APPLICABLE FOR DIALYSIS PATIENTS. TROPONIN [id number] 20:10:00* Test Item Value Reference Range Comments TROPONIN I (BEAKER) (test xsch=864) 0.31 ng/mL 0.00-0.03 Troponin I (TnI) levels must be interpreted in the context of the presenting sym ptoms and the clinical findings. Elevated TnI levels indicate myocardial damage, but are not specific for ischemic heart disease. Elevated TnI levels are seen in patients with other cardiac conditions (including myocarditis and congestive h eart failure), and slight TnI elevations occur in patients with other conditions , including sepsis, renal failure, acidosis, acute neurological disease, and per sistent tachyarrhythmia.B-TYPE NATRIURETIC FACTOR (BNP)2017-10-28 20:09:00* Test Item Value Reference Range Comments B-TYPE NATRIURETIC PEPTIDE (BEAKER) (test wnxv=181) 291 pg/mL 0-100 RAD, CHEST, 1 VIEW, NON [id number] 20:05:00Reason for exam:->chest painShould this be performed at the bedside?->YesFINAL REPORT Chest x-ray Clinical History: chest pain Comparison: February 08, 2017 Views: One AP lordotic Chest x-ray:The cardiac and mediastinal silhouettes are enlarged with a left ventricular configuration. There is no evidence of a pneumothorax. There is no evidence of a pleural effusion. There is no evidence of overt cardiac failure. The visible regional skeleton is intact. There is no evidence of a focal parenchymal opacity. Sternotomy wires are noted. There is blunting of the right lateral costophrenic sulcus with atelectatic changes suspected. These findings were present in January 2017. Impression: Postprocedural changes noted. Cardiomegaly. Chronic right pleural thickening with volume loss changes in the right lower lung zone. Compared to the prior st udy. Increased interstitial markings suggesting increased edema. Signed: Shani Levieport Verified Date/Time: 10/28/2017 20:05:31 Reading Location: [facility] [id number] Consult Reading Room [id number] 20:03:00* Test Item Value Reference Range Comments MAGNESIUM (BEAKER) (test csen=212) 1.8 mg/dL 1.6-2.6 [id number] 19:47:00* Test Item Value Reference Range Comments PROTIME (BEAKER) (test dzgi=558) 14.4 seconds 11.7-14.7 INR (BEAKER) (test boxj=766) 1.1 <=5.9 PARTIAL THROMBOPLASTIN TIME (BEAKER) (test zxff=581) 30.3 seconds 22.5-36.0 RECOMMENDED COUMADIN/WARFARIN INR THERAPY RANGESSTANDARD DOSE: 2.0 - 3.0 Inclu shay: PROPHYLAXIS for venous thrombosis, systemic embolization; TREATMENT for lu ous thrombosis and/or pulmonary embolus.HIGH RISK: Target INR is 2.5-3.5 for pat ients with mechanical heart valves.CBC W/PLT COUNT & AUTO [id number] 19:44:00* Test Item Value Reference Range Comments WHITE BLOOD CELL COUNT (BEAKER) (test mjmc=856) 7.3 K/ L 3.5-10.5 RED BLOOD CELL COUNT (BEAKER) (test ijxg=005) 4.17 M/ L 4.63-6.08 HEMOGLOBIN (BEAKER) (test jgcr=293) 9.6 GM/DL 13.7-17.5 HEMATOCRIT (BEAKER) (test obmi=755) 33.6 % 40.1-51.0 MEAN CORPUSCULAR VOLUME (BEAKER) (test lvny=977) 80.6 fL 79.0-92.2 MEAN CORPUSCULAR HEMOGLOBIN (BEAKER) (test luwt=986) 23.0 pg 25.7-32.2 MEAN CORPUSCULAR HEMOGLOBIN CONC (BEAKER) (test jdag=456) 28.6 GM/DL 32.3-36.5 RED CELL DISTRIBUTION WIDTH (BEAKER) (test dnjw=722) 17.5 % 11.6-14.4 PLATELET COUNT (BEAKER) (test cixp=380) 195 K/CU MM 150-450 MEAN PLATELET VOLUME (BEAKER) (test lcps=003) 11.4 fL 9.4-12.4 NUCLEATED RED BLOOD CELLS (BEAKER) (test gzpy=609) 0 /100 WBC 0-0 NEUTROPHILS RELATIVE PERCENT (BEAKER) (test hxkz=857) 88 % LYMPHOCYTES RELATIVE PERCENT (BEAKER) (test fazb=187) 7 % MONOCYTES RELATIVE PERCENT (BEAKER) (test kuod=471) 5 % EOSINOPHILS RELATIVE PERCENT (BEAKER) (test bysq=875) 1 % BASOPHILS RELATIVE PERCENT (BEAKER) (test gmgj=327) 0 % NEUTROPHILS ABSOLUTE COUNT (BEAKER) (test ugyr=859) 6.41 K/ L 1.78-5.38 LYMPHOCYTES ABSOLUTE COUNT (BEAKER) (test tpie=446) 0.50 K/ L 1.32-3.57 MONOCYTES ABSOLUTE COUNT (BEAKER) (test flad=110) 0.33 K/ L 0.30-0.82 EOSINOPHILS ABSOLUTE COUNT (BEAKER) (test fyhw=819) 0.04 K/ L 0.04-0.54 BASOPHILS ABSOLUTE COUNT (BEAKER) (test llnn=984) 0.01 K/ L 0.01-0.08 IMMATURE GRANULOCYTES-RELATIVE PERCENT (BEAKER) (test chnn=9935) 1 % 0-1 AFB CULTURE + [id number] 11:58:00* Test Item Value Reference Range Comments CULTURE (BEAKER) (test bfhi=0082) No acid-fast bacilli isolated in 42 days AFB SMEAR (BEAKER) (test couv=178) No acid fast bacilli seen AFB CULTURE + [id number] 11:58:00* Test Item Value Reference Range Comments CULTURE (BEAKER) (test uhbb=2596) No acid-fast bacilli isolated in 42 days AFB SMEAR (BEAKER) (test ofig=936) No acid fast bacilli seen AFB CULTURE + [id number] 11:58:00* Test Item Value Reference Range Comments CULTURE (BEAKER) (test arsn=0964) No acid-fast bacilli isolated in 42 days AFB SMEAR (BEAKER) (test fgxw=406) No acid fast bacilli seen [place], HOUSING PROPERTY MANAGER IN OR/30 MINUTE [id number] 13:14:00INTRA OP IMAGINGReason for exam:->PNEUMONIAFLUOROSCOPIC UNIT UTILIZED-NO INTERPRETATION REQUESTED. US CULTURE + [id number] 10:12:00* Test Item Value Reference Range Comments CULTURE (BEAKER) (test bonk=6209) No fungus isolated in 28 days FUNGUS SMEAR (BEAKER) (test pfhp=4796) No fungi seen FUNGUS CULTURE + [id number] 10:12:00* Test Item Value Reference Range Comments CULTURE (BEAKER) (test oplr=6292) No fungus isolated in 28 days FUNGUS SMEAR (BEAKER) (test zglw=5787) No fungi seen FUNGUS CULTURE + [id number] 10:12:00* Test Item Value Reference Range Comments CULTURE (BEAKER) (test djkc=4353) No fungus isolated in 28 days FUNGUS SMEAR (BEAKER) (test ghsz=7491) No fungi seen VIRUS [id number] 14:25:00* Test Item Value Reference Range Comments CULTURE (BEAKER) (test wybm=2550) No virus isolated VIRUS [id number] 14:25:00* Test Item Value Reference Range Comments CULTURE (BEAKER) (test tswn=2555) No virus isolated MISCELLANEOUS LAB [id number] 11:13:00* Test Item Value Reference Range Comments SCAN RESULT (test ijsx=[id number]) LEGIONELLA [id number] 11:45:00* Test Item Value Reference Range Comments CULTURE (BEAKER) (test xlaq=2690) No Legionella species isolated LEGIONELLA [id number] 11:41:00* Test Item Value Reference Range Comments CULTURE (BEAKER) (test qgmp=9585) No Legionella species isolated FUNGUS CULTURE + [id number] 12:44:00* Test Item Value Reference Range Comments CULTURE (BEAKER) (test wonk=6883) 1 out of 3 media Aspergillus niger FUNGUS SMEAR (BEAKER) (test nrxx=1977) No fungi seen POCT-GLUCOSE [id number] 12:25:00* Test Item Value Reference Range Comments POC-GLUCOSE METER (BEAKER) (test kite=3779) 200 mg/dL 70-[address] [facility] [address] [facility] [address] POCT-GLUCOSE [id number] 11:35:00* Test Item Value Reference Range Comments POC-GLUCOSE METER (BEAKER) (test agek=7081) 194 mg/dL 70-[address] [facility] [address] [facility] [address] BLOOD [id number] 11:00:00* Test Item Value Reference Range Comments CULTURE (BEAKER) (test ykwa=9462) No growth in 5 days BLOOD [id number] 11:00:00* Test Item Value Reference Range Comments CULTURE (BEAKER) (test jfvx=6139) No growth in 5 days POCT-GLUCOSE [id number] 07:37:00* Test Item Value Reference Range Comments POC-GLUCOSE METER (BEAKER) (test rtme=8368) 61 mg/dL 70-110 TESTED AT [place] [id number] [facility] [address] POCT-GLUCOSE [id number] 21:59:00* Test Item Value Reference Range Comments POC-GLUCOSE METER (BEAKER) (test ptey=5626) 268 mg/dL 70-110 TESTED AT [address] [address] POCT-GLUCOSE [id number] 17:49:00* Test Item Value Reference Range Comments POC-GLUCOSE METER (BEAKER) (test ggwj=0483) 312 mg/dL 70-110 Will Repeat Test/TESTED AT [address] [address] POCT-GLUCOSE [id number] 12:17:00* Test Item Value Reference Range Comments POC-GLUCOSE METER (BEAKER) (test pper=6185) 242 mg/dL 70-110 TESTED AT [address] [address] POCT-GLUCOSE [id number] 08:10:00* Test Item Value Reference Range Comments POC-GLUCOSE METER (BEAKER) (test zary=8847) 212 mg/dL 70-110 TESTED AT [address] [address] LACTIC ACID, VENOUS, WHOLE [id number] 06:53:00* Test Item Value Reference Range Comments LACTATE BLOOD VENOUS (2) (BEAKER) (test xtuu=6645) 1.8 mmol/L 0.5-2.2 Specimen slightly hemolyzed Effective 08/30/2015: Units/Reference Range ChangeNew: 0.5-2.2 mmol/L Previous: 5 -20 mg/dLPOCT-GLUCOSE [id number] 21:55:00* Test Item Value Reference Range Comments POC-GLUCOSE METER (BEAKER) (test mces=7830) 281 mg/dL 70-110 TESTED AT [address] [address] POCT-GLUCOSE [id number] 18:03:00* Test Item Value Reference Range Comments POC-GLUCOSE METER (BEAKER) (test gkqp=0085) 275 mg/dL 70-110 TESTED AT [address] [address] POCT-GLUCOSE [id number] 16:12:00* Test Item Value Reference Range Comments POC-GLUCOSE METER (BEAKER) (test hayp=0966) 311 mg/dL 70-110 Notified SUSAN BALBUENA/TESTED AT [address] [address] POCT-GLUCOSE [id number] 11:57:00* Test Item Value Reference Range Comments POC-GLUCOSE METER (BEAKER) (test xiho=8060) 169 mg/dL 70-[address] [facility] [address] [facility] [address] POCT-GLUCOSE [id number] 07:30:00* Test Item Value Reference Range Comments POC-GLUCOSE METER (BEAKER) (test ffqm=3752) 276 mg/dL 70-[address] [facility] [address] [facility] [address] BASIC METABOLIC [id number] 04:24:00* Test Item Value Reference Range Comments SODIUM (BEAKER) (test uanl=149) 132 meq/L 136-145 POTASSIUM (BEAKER) (test xgpr=862) 4.3 meq/L 3.5-5.1 CHLORIDE (BEAKER) (test yrce=769) 101 meq/L 98-107 CO2 (BEAKER) (test rxjo=325) 21 meq/L 22-29 BLOOD UREA NITROGEN (BEAKER) (test unjh=279) 13 mg/dL 7-21 CREATININE (BEAKER) (test lxhf=044) 0.72 mg/dL 0.57-1.25 GLUCOSE RANDOM (BEAKER) (test ljdz=402) 235 mg/dL 70-105 CALCIUM (BEAKER) (test pcxa=700) 9.1 mg/dL 8.4-10.2 EGFR (BEAKER) (test cpfa=3388) 107 mL/min/1.73 sq m ESTIMATED GFR IS NOT ACCURATE CREATININE CLEARANCE IN PREDICTING GLOMERULAR FILTRATION RATE. ESTIMATED GFR IS NOT APPLICABLE FOR DIALYSIS PATIENTS. CBC W/PLT COUNT & AUTO [id number] 04:14:00* Test Item Value Reference Range Comments WHITE BLOOD CELL COUNT (BEAKER) (test vhwn=774) 4.6 K/ L 3.5-10.5 RED BLOOD CELL COUNT (BEAKER) (test crnf=603) 4.06 M/ L 4.63-6.08 HEMOGLOBIN (BEAKER) (test zlvn=813) 10.5 GM/DL 13.7-17.5 HEMATOCRIT (BEAKER) (test ehjr=695) 33.0 % 40.1-51.0 MEAN CORPUSCULAR VOLUME (BEAKER) (test nszk=810) 81.3 fL 79.0-92.2 MEAN CORPUSCULAR HEMOGLOBIN (BEAKER) (test jjla=450) 25.9 pg 25.7-32.2 MEAN CORPUSCULAR HEMOGLOBIN CONC (BEAKER) (test iaxq=932) 31.8 GM/DL 32.3-36.5 RED CELL DISTRIBUTION WIDTH (BEAKER) (test deep=792) 13.4 % 11.6-14.4 PLATELET COUNT (BEAKER) (test zqzv=124) 273 K/CU MM 150-450 MEAN PLATELET VOLUME (BEAKER) (test ynxg=416) 9.4 fL 9.4-12.4 NUCLEATED RED BLOOD CELLS (BEAKER) (test jmnp=906) 0 /100 WBC 0-0 NEUTROPHILS RELATIVE PERCENT (BEAKER) (test wodk=953) 81 % LYMPHOCYTES RELATIVE PERCENT (BEAKER) (test scbv=884) 14 % MONOCYTES RELATIVE PERCENT (BEAKER) (test ymlz=181) 4 % EOSINOPHILS RELATIVE PERCENT (BEAKER) (test wvnb=208) 0 % BASOPHILS RELATIVE PERCENT (BEAKER) (test gisx=071) 0 % NEUTROPHILS ABSOLUTE COUNT (BEAKER) (test qand=854) 3.76 K/ L 1.78-5.38 LYMPHOCYTES ABSOLUTE COUNT (BEAKER) (test rxvd=300) 0.65 K/ L 1.32-3.57 MONOCYTES ABSOLUTE COUNT (BEAKER) (test xxse=738) 0.18 K/ L 0.30-0.82 EOSINOPHILS ABSOLUTE COUNT (BEAKER) (test lnka=631) 0.01 K/ L 0.04-0.54 BASOPHILS ABSOLUTE COUNT (BEAKER) (test bxwf=460) 0.02 K/ L 0.01-0.08 IMMATURE GRANULOCYTES-RELATIVE PERCENT (BEAKER) (test lofk=1146) 0 % 0-1 POCT-GLUCOSE [id number] 22:38:00* Test Item Value Reference Range Comments POC-GLUCOSE METER (BEAKER) (test qlvu=1336) 262 mg/dL 70-[address] [facility] [address] [facility] [address] POCT-GLUCOSE [id number] 21:37:00* Test Item Value Reference Range Comments POC-GLUCOSE METER (BEAKER) (test nnaa=8145) 275 mg/dL 70-[address] [facility] [address] [facility] [address] POCT-GLUCOSE [id number] 18:56:00* Test Item Value Reference Range Comments POC-GLUCOSE METER (BEAKER) (test zucg=7895) 292 mg/dL 70-[address] [facility] [address] [facility] [address] MR, ABDOMEN, [id number] 18:25:00FINAL REPORT MRI OF THE ABDOMEN CLINICAL HISTORY: Incidental liver lesion seen on recent chest CT TECHNIQUE: Multiplanar and multisequence MR images of the abdomen are obtained before and after intravenous contrast administration. Contrast is administered to evaluate the solid organs. COMPARISON: Chest CT from 02/05/2017 DISCUSSION: LIVER: Smooth contour of the liver. Main portal vein is patent. There is a 1 cm focus of enhancement at the right hepatic dome without associated washout or pseudocapsule. No suspicious liver lesion is identified.BILIARY: Cholelithiasis. No biliary ductal dilation.PANCREAS: No pancreatic ductal dilation. No solid pancreatic lesion.SPLEEN: No splenomegaly. ADRENALS: No nodule.KIDNEYS: Few bilateral renal cysts of varying size and complexity. No definite solid enhancing lesion. No hydronephrosis or hydroureter. PERITONEUM/RETROPERITONEUM: No ascites.LYMPH NODES: No upper abdominal lymphadenopathy. VESSELS: Abdominal aorta is normal in caliber. BONES AND SOFT TISSUES: No destructive osseous lesion. IMPRESSION: Unremarkable contrast-enhanced MRI of the abdomen. No suspicious liver lesion. The lesions of interest in the liver likely represent small vascular shunts. Signed: Kalpesh Saavedra MDReport Verified Date/Time: 02/10/2017 18:25:22 Reading Location: [facility] B1 C013Y CT Body Reading Room IRATORY PANEL [id number] 15:10:00* Test Item Value Reference Range Comments HUMAN METAPNEUMOVIRUS (BEAKER) (test shlu=2579) Not detected Not detected, Inconclusive RHINOVIRUS (BEAKER) (test nmuu=2649) Not detected Not detected, Inconclusive INFLUENZA A (BEAKER) (test juse=4653) Not detected Not detected, Inconclusive INFLUENZA A SUBTYPE H1 (BEAKER) (test cpiu=1414) Not detected Not detected, Inconclusive INFLUENZA A SUBTYPE H3 (BEAKER) (test oxee=6749) Not detected Not detected, Inconclusive INFLUENZA A SUBTYPE H1-2009 (BEAKER) (test peum=4030) Not detected Not detected, Inconclusive INFLUENZA B (BEAKER) (test klow=0871) Not detected Not detected, Inconclusive RESPIRATORY SYNCYTIAL VIRUS (BEAKER) (test oomb=1457) Not detected Not detected, Inconclusive PARAINFLUENZA VIRUS 1 (BEAKER) (test qsno=3673) Not detected Not detected, Inconclusive PARAINFLUENZA VIRUS 2 (BEAKER) (test jeja=8022) Not detected Not detected, Inconclusive PARAINFLUENZA VIRUS 3 (BEAKER) (test xvuk=1434) Not detected Not detected, Inconclusive PARAINFLUENZA VIRUS 4 (BEAKER) (test emhg=0819) Not detected Not detected, Inconclusive ADENOVIRUS (BEAKER) (test ccxx=7850) Not detected Not detected, Inconclusive CORONAVIRUS 229E (BEAKER) (test mrjg=7894) Not detected Not detected, Inconclusive CORONAVIRUS HKU1 (BEAKER) (test dwrk=2718) Not detected Not detected, Inconclusive CORONAVIRUS NL63 (BEAKER) (test tadk=9065) Not detected Not detected, Inconclusive CORONAVIRUS OC43 (BEAKER) (test zsqw=0942) Not detected Not detected, Inconclusive BORDETELLA PERTUSSIS (BEAKER) (test wrju=7954) Not detected Not detected, Inconclusive CHLAMYDOPHILA PNEUMONIAE (BEAKER) (test zrkh=1597) Not detected Not detected, Inconclusive MYCOPLASMA PNEUMONIAE (BEAKER) (test zprr=5228) Not detected Not detected, Inconclusive POCT-GLUCOSE [id number] 11:42:00* Test Item Value Reference Range Comments POC-GLUCOSE METER (BEAKER) (test kvmb=9404) 289 mg/dL 70-[address] [facility] [address] [facility] [address] POCT-GLUCOSE [id number] 08:32:00* Test Item Value Reference Range Comments POC-GLUCOSE METER (BEAKER) (test jvae=6174) 158 mg/dL 70-110 TESTED AT [place] [id number] [facility] [address] CBC W/PLT COUNT & AUTO [id number] 03:23:00* Test Item Value Reference Range Comments WHITE BLOOD CELL COUNT (BEAKER) (test qidt=976) 6.8 K/ L 3.5-10.5 RED BLOOD CELL COUNT (BEAKER) (test iwib=872) 4.22 M/ L 4.63-6.08 HEMOGLOBIN (BEAKER) (test mnte=250) 11.3 GM/DL 13.7-17.5 HEMATOCRIT (BEAKER) (test ahok=108) 34.6 % 40.1-51.0 MEAN CORPUSCULAR VOLUME (BEAKER) (test lsfa=787) 82.0 fL 79.0-92.2 MEAN CORPUSCULAR HEMOGLOBIN (BEAKER) (test aqgm=271) 26.8 pg 25.7-32.2 MEAN CORPUSCULAR HEMOGLOBIN CONC (BEAKER) (test bmef=650) 32.7 GM/DL 32.3-36.5 RED CELL DISTRIBUTION WIDTH (BEAKER) (test fljc=680) 13.5 % 11.6-14.4 PLATELET COUNT (BEAKER) (test vnbg=938) 259 K/CU MM 150-450 MEAN PLATELET VOLUME (BEAKER) (test kwqw=226) 9.6 fL 9.4-12.4 NUCLEATED RED BLOOD CELLS (BEAKER) (test utgu=392) 0 /100 WBC 0-0 NEUTROPHILS RELATIVE PERCENT (BEAKER) (test vjbo=629) 70 % LYMPHOCYTES RELATIVE PERCENT (BEAKER) (test auus=178) 19 % MONOCYTES RELATIVE PERCENT (BEAKER) (test ukdz=678) 7 % EOSINOPHILS RELATIVE PERCENT (BEAKER) (test vksc=652) 4 % BASOPHILS RELATIVE PERCENT (BEAKER) (test dytf=511) 0 % NEUTROPHILS ABSOLUTE COUNT (BEAKER) (test jges=674) 4.77 K/ L 1.78-5.38 LYMPHOCYTES ABSOLUTE COUNT (BEAKER) (test twqc=680) 1.27 K/ L 1.32-3.57 MONOCYTES ABSOLUTE COUNT (BEAKER) (test eydz=438) 0.47 K/ L 0.30-0.82 EOSINOPHILS ABSOLUTE COUNT (BEAKER) (test yspy=712) 0.26 K/ L 0.04-0.54 BASOPHILS ABSOLUTE COUNT (BEAKER) (test gxmq=040) 0.02 K/ L 0.01-0.08 IMMATURE GRANULOCYTES-RELATIVE PERCENT (BEAKER) (test hyda=0660) 1 % 0-1 BASIC METABOLIC [id number] 02:56:00* Test Item Value Reference Range Comments SODIUM (BEAKER) (test zduv=991) 134 meq/L 136-145 POTASSIUM (BEAKER) (test vjqt=315) 4.0 meq/L 3.5-5.1 CHLORIDE (BEAKER) (test wqma=771) 101 meq/L 98-107 CO2 (BEAKER) (test isza=957) 24 meq/L 22-29 BLOOD UREA NITROGEN (BEAKER) (test ayqj=401) 16 mg/dL 7-21 CREATININE (BEAKER) (test rrvp=239) 0.78 mg/dL 0.57-1.25 GLUCOSE RANDOM (BEAKER) (test wscb=597) 96 mg/dL 70-105 CALCIUM (BEAKER) (test kqlp=886) 8.8 mg/dL 8.4-10.2 EGFR (BEAKER) (test sird=9311) 97 mL/min/1.73 sq m ESTIMATED GFR IS NOT ACCURATE CREATININE CLEARANCE IN PREDICTING GLOMERULAR FILTRATION RATE. ESTIMATED GFR IS NOT APPLICABLE FOR DIALYSIS PATIENTS. POCT-GLUCOSE [id number] 22:13:00* Test Item Value Reference Range Comments POC-GLUCOSE METER (BEAKER) (test cgpn=8719) 120 mg/dL 70-110 TESTED AT [address] [address] POCT-GLUCOSE [id number] 18:03:00* Test Item Value Reference Range Comments POC-GLUCOSE METER (BEAKER) (test tkqi=5062) 169 mg/dL 70-110 TESTED AT [address] [address] POCT-GLUCOSE [id number] 13:05:00* Test Item Value Reference Range Comments POC-GLUCOSE METER (BEAKER) (test jbky=8685) 192 mg/dL 70-110 TESTED AT [address] [address] POCT-GLUCOSE [id number] 09:32:00* Test Item Value Reference Range Comments POC-GLUCOSE METER (BEAKER) (test lrwg=3712) 115 mg/dL 70-110 TESTED AT [address] [address] POCT-GLUCOSE [id number] 08:55:00* Test Item Value Reference Range Comments POC-GLUCOSE METER (BEAKER) (test pjkb=0557) 60 mg/dL 70-110 TESTED AT [address] [address] BASIC METABOLIC [id number] 07:12:00* Test Item Value Reference Range Comments SODIUM (BEAKER) (test kgvt=633) 136 meq/L 136-145 POTASSIUM (BEAKER) (test sjvl=996) 3.8 meq/L 3.5-5.1 CHLORIDE (BEAKER) (test zbdz=824) 103 meq/L 98-107 CO2 (BEAKER) (test sudw=972) 23 meq/L 22-29 BLOOD UREA NITROGEN (BEAKER) (test shuz=159) 16 mg/dL 7-21 CREATININE (BEAKER) (test jtto=454) 0.72 mg/dL 0.57-1.25 GLUCOSE RANDOM (BEAKER) (test yilc=314) 47 mg/dL 70-105 CALCIUM (BEAKER) (test cntp=902) 8.9 mg/dL 8.4-10.2 EGFR (BEAKER) (test vzkt=3587) 107 mL/min/1.73 sq m ESTIMATED GFR IS NOT ACCURATE CREATININE CLEARANCE IN PREDICTING GLOMERULAR FILTRATION RATE. ESTIMATED GFR IS NOT APPLICABLE FOR DIALYSIS PATIENTS. CBC W/PLT COUNT & AUTO [id number] 06:08:00* Test Item Value Reference Range Comments WHITE BLOOD CELL COUNT (BEAKER) (test setl=723) 6.4 K/ L 3.5-10.5 RED BLOOD CELL COUNT (BEAKER) (test jcla=757) 4.06 M/ L 4.63-6.08 HEMOGLOBIN (BEAKER) (test iabv=141) 10.4 GM/DL 13.7-17.5 HEMATOCRIT (BEAKER) (test eosi=903) 33.5 % 40.1-51.0 MEAN CORPUSCULAR VOLUME (BEAKER) (test eufj=379) 82.5 fL 79.0-92.2 MEAN CORPUSCULAR HEMOGLOBIN (BEAKER) (test mbfy=832) 25.6 pg 25.7-32.2 MEAN CORPUSCULAR HEMOGLOBIN CONC (BEAKER) (test dokn=567) 31.0 GM/DL 32.3-36.5 RED CELL DISTRIBUTION WIDTH (BEAKER) (test pkom=206) 13.7 % 11.6-14.4 PLATELET COUNT (BEAKER) (test twbq=378) 265 K/CU MM 150-450 MEAN PLATELET VOLUME (BEAKER) (test pqxu=731) 9.5 fL 9.4-12.4 NUCLEATED RED BLOOD CELLS (BEAKER) (test apix=640) 0 /100 WBC 0-0 NEUTROPHILS RELATIVE PERCENT (BEAKER) (test gcdu=292) 67 % LYMPHOCYTES RELATIVE PERCENT (BEAKER) (test wjww=532) 22 % MONOCYTES RELATIVE PERCENT (BEAKER) (test bzyn=060) 7 % EOSINOPHILS RELATIVE PERCENT (BEAKER) (test vtym=220) 3 % BASOPHILS RELATIVE PERCENT (BEAKER) (test taxt=255) 1 % NEUTROPHILS ABSOLUTE COUNT (BEAKER) (test wcof=925) 4.32 K/ L 1.78-5.38 LYMPHOCYTES ABSOLUTE COUNT (BEAKER) (test gyze=506) 1.41 K/ L 1.32-3.57 MONOCYTES ABSOLUTE COUNT (BEAKER) (test mrgk=623) 0.43 K/ L 0.30-0.82 EOSINOPHILS ABSOLUTE COUNT (BEAKER) (test vdls=207) 0.22 K/ L 0.04-0.54 BASOPHILS ABSOLUTE COUNT (BEAKER) (test swvw=156) 0.03 K/ L 0.01-0.08 IMMATURE GRANULOCYTES-RELATIVE PERCENT (BEAKER) (test jufm=4936) 1 % 0-1 POCT-GLUCOSE [id number] 23:16:00* Test Item Value Reference Range Comments POC-GLUCOSE METER (BEAKER) (test ilza=7515) 134 mg/dL 70-[address] [facility] [address] [facility] [address] RAD, CHEST, 2 [id number] 18:40:00Reason for exam:->patient with ILD - UIP - Staph pneumonia on bronch - fever - please compareFINAL REPORT EXAMINATION: 2 VIEW CHEST INDICATION: Staph pneumonia, fever. Patient with ILD-UIP IMPRESSION: Compared with chest CT 02/05/2017 and chest radiograph 10/26/2016. A midline sternotomy is again noted. Relatively stable reticular opacities, microcystic changes and mild central bronchiectasis are again noted in both lungs, most conspicuous at the lung bases. The morphology and stability favor a component of scarring with fibrosis. Although there is no definite evidence of new focal lung consolidation, mild superimposed edema or pneumonia are difficult to exclude. The heart is mildly enlarged but stable. Mediastinal contours are unchanged. No evidence of a pneumothorax. Signed: Patricia Hensoneport Verified Date/Time: 02/08/2017 18:40:12 Reading Location: [address] Reading Room -GLUCOSE [id number] 18:26:00* Test Item Value Reference Range Comments POC-GLUCOSE METER (BEAKER) (test andb=6480) 344 mg/dL 70-[address] [facility] [address] [facility] [address] POCT-GLUCOSE [id number] 13:39:00* Test Item Value Reference Range Comments POC-GLUCOSE METER (BEAKER) (test erkg=7537) 240 mg/dL 70-[address] [facility] [address] [facility] [address] BRONCHIAL CULTURE + GRAM [id number] 13:33:00* Test Item Value Reference Range Comments CULTURE (BEAKER) (test qhta=8021) No growth GRAM STAIN RESULT (BEAKER) (test vmht=5162) 2+ WBCs GRAM STAIN RESULT (BEAKER) (test idvz=72756) <1+ gram positive cocci in clusters BRONCHIAL CULTURE + GRAM [id number] 13:30:00* Test Item Value Reference Range Comments CULTURE (BEAKER) (test mamj=9134) No growth GRAM STAIN RESULT (BEAKER) (test zcrh=3585) <1+ WBCs GRAM STAIN RESULT (BEAKER) (test qggr=72422) No organisms seen BRONCHIAL CULTURE + GRAM [id number] 11:07:00* Test Item Value Reference Range Comments CULTURE (BEAKER) (test gmcb=2274) 2+ Same organism has been isolated from cultures(s) of the same body site and collection date. Repeat identification and susceptibility testing performed only after consultation with the clinical microbiology laboratory.Refer to previous culture ofStaphylococcus aureus GRAM STAIN RESULT (BEAKER) (test exvp=4075) <1+ WBCs GRAM STAIN RESULT (BEAKER) (test tffq=015054) No organisms seen BRONCHIAL CULTURE + GRAM [id number] 11:06:00* Test Item Value Reference Range Comments CULTURE (BEAKER) (test pfby=2106) Clindamycin (test code=10) Erythromycin (test code=4) Linezolid (test code=40) Nitrofurantoin (test code=23) Oxacillin (test code=14) Rifampin (test code=43) Tetracycline (test code=2) Trimethoprim + Sulfamethoxazole (test code=47) Vancomycin (test code=13) CULTURE (BEAKER) (test axum=4655) 2+ Staphylococcus aureus GRAM STAIN RESULT (BEAKER) (test kybr=2951) 2+ WBCs GRAM STAIN RESULT (BEAKER) (test bofa=027017) 2+ gram positive cocci in chains, pairs and clusters CBC W/PLT COUNT & AUTO [id number] 09:10:00* Test Item Value Reference Range Comments WHITE BLOOD CELL COUNT (BEAKER) (test sarg=841) 8.3 K/ L 3.5-10.5 RED BLOOD CELL COUNT (BEAKER) (test ruqe=948) 4.24 M/ L 4.63-6.08 HEMOGLOBIN (BEAKER) (test iyjh=200) 10.9 GM/DL 13.7-17.5 HEMATOCRIT (BEAKER) (test jvin=612) 34.5 % 40.1-51.0 MEAN CORPUSCULAR VOLUME (BEAKER) (test umgv=043) 81.4 fL 79.0-92.2 MEAN CORPUSCULAR HEMOGLOBIN (BEAKER) (test rkix=300) 25.7 pg 25.7-32.2 MEAN CORPUSCULAR HEMOGLOBIN CONC (BEAKER) (test lujf=650) 31.6 GM/DL 32.3-36.5 RED CELL DISTRIBUTION WIDTH (BEAKER) (test niex=931) 13.7 % 11.6-14.4 PLATELET COUNT (BEAKER) (test meto=879) 259 K/CU MM 150-450 MEAN PLATELET VOLUME (BEAKER) (test ghnx=684) 9.6 fL 9.4-12.4 NUCLEATED RED BLOOD CELLS (BEAKER) (test vily=960) 0 /100 WBC 0-0 NEUTROPHILS RELATIVE PERCENT (BEAKER) (test igxg=545) 79 % LYMPHOCYTES RELATIVE PERCENT (BEAKER) (test mbfq=883) 14 % MONOCYTES RELATIVE PERCENT (BEAKER) (test fmdk=305) 4 % EOSINOPHILS RELATIVE PERCENT (BEAKER) (test efad=192) 2 % BASOPHILS RELATIVE PERCENT (BEAKER) (test ejwn=767) 1 % NEUTROPHILS ABSOLUTE COUNT (BEAKER) (test wdgl=517) 6.51 K/ L 1.78-5.38 LYMPHOCYTES ABSOLUTE COUNT (BEAKER) (test zmbu=205) 1.15 K/ L 1.32-3.57 MONOCYTES ABSOLUTE COUNT (BEAKER) (test udka=730) 0.33 K/ L 0.30-0.82 EOSINOPHILS ABSOLUTE COUNT (BEAKER) (test gvhz=559) 0.19 K/ L 0.04-0.54 BASOPHILS ABSOLUTE COUNT (BEAKER) (test uxjc=462) 0.04 K/ L 0.01-0.08 IMMATURE GRANULOCYTES-RELATIVE PERCENT (BEAKER) (test nmmt=5791) 0 % 0-1 POCT-GLUCOSE [id number] 07:23:00* Test Item Value Reference Range Comments POC-GLUCOSE METER (BEAKER) (test bufe=3767) 141 mg/dL 70-[address] [facility] [address] [facility] [address] [id number] 04:13:00* Test Item Value Reference Range Comments MAGNESIUM (BEAKER) (test mkda=599) 1.5 mg/dL 1.6-2.6 BASIC METABOLIC [id number] 04:13:00* Test Item Value Reference Range Comments SODIUM (BEAKER) (test hvvi=292) 133 meq/L 136-145 POTASSIUM (BEAKER) (test eogs=532) 4.4 meq/L 3.5-5.1 CHLORIDE (BEAKER) (test jzcr=335) 99 meq/L 98-107 CO2 (BEAKER) (test lkup=938) 24 meq/L 22-29 BLOOD UREA NITROGEN (BEAKER) (test drml=633) 16 mg/dL 7-21 CREATININE (BEAKER) (test yusf=278) 0.81 mg/dL 0.57-1.25 GLUCOSE RANDOM (BEAKER) (test fwfx=484) 205 mg/dL 70-105 CALCIUM (BEAKER) (test uchy=254) 9.2 mg/dL 8.4-10.2 EGFR (BEAKER) (test uxdp=8986) 93 mL/min/1.73 sq m ESTIMATED GFR IS NOT ACCURATE CREATININE CLEARANCE IN PREDICTING GLOMERULAR FILTRATION RATE. ESTIMATED GFR IS NOT APPLICABLE FOR DIALYSIS PATIENTS. HEPATIC FUNCTION [id number] 04:13:00* Test Item Value Reference Range Comments TOTAL PROTEIN (BEAKER) (test uayu=978) 6.8 gm/dL 6.0-8.3 ALBUMIN (BEAKER) (test sbcx=6375) 3.5 g/dL 3.5-5.0 BILIRUBIN TOTAL (BEAKER) (test braj=109) 0.5 mg/dL 0.2-1.2 BILIRUBIN DIRECT (BEAKER) (test garb=549) 0.3 mg/dL 0.1-0.5 ALKALINE PHOSPHATASE (BEAKER) (test xolj=264) 49 U/L 40-150 AST (SGOT) (BEAKER) (test mtwi=085) 21 U/L 5-34 ALT (SGPT) (BEAKER) (test mxet=887) 16 U/L 6-55 [id number] 04:01:00* Test Item Value Reference Range Comments PROTIME (BEAKER) (test hbzb=173) 15.4 seconds 11.7-14.7 INR (BEAKER) (test hspt=719) 1.2 <=5.9 PARTIAL THROMBOPLASTIN TIME (BEAKER) (test wxke=576) 35.6 seconds 22.5-36.0 RECOMMENDED COUMADIN/WARFARIN INR THERAPY RANGESSTANDARD DOSE: 2.0 - 3.0 Inclu shay: PROPHYLAXIS for venous thrombosis, systemic embolization; TREATMENT for lu ous thrombosis and/or pulmonary embolus.HIGH RISK: Target INR is 2.5-3.5 for pat ients with mechanical heart valves.POCT-GLUCOSE [id number] 21:59:00* Test Item Value Reference Range Comments POC-GLUCOSE METER (BEAKER) (test nmqy=4734) 169 mg/dL 70-[address] [facility] [address] [facility] [address] SPIN/CONCENTRATION [id number] 17:01:00* Test Item Value Reference Range Comments CONCENTRATION CHARGED (BEAKER) (test bgyv=4571) Done SPIN/CONCENTRATION [id number] 17:00:00* Test Item Value Reference Range Comments CONCENTRATION CHARGED (BEAKER) (test qfcv=8444) Done SPIN/CONCENTRATION [id number] 17:00:00* Test Item Value Reference Range Comments CONCENTRATION CHARGED (BEAKER) (test jwrl=8118) Done POCT-GLUCOSE [id number] 16:08:00* Test Item Value Reference Range Comments POC-GLUCOSE METER (BEAKER) (test djjo=1952) 319 mg/dL 70-110 TESTED AT [place] [address] [id number] 13:01:00Medical Cytology Report Case: [id number] Authorizing Provider: Sohan Westfall, Collected: 02/06/2017 1354 Ordering Location: [address] Received: 02/06/2017 1531 Service Pathologist: Kian Amado MD Specimen: Lung, Right Lower Lobe RIGHT LOWER LOBE BRONCHIAL BRUSHING (CYTOSPINS) - NO MALIGNANT CELLS IDENTIFIED Signing Pathologist Direct Phone Line: [phone] signed by Kian Amado MD on 02/07/2017 at 1:01 [id number] performed which did show some bilateral ground glass opacities and RLL mild bronchiectasisRIGHT LOWER LOBE BRONCHIAL BRUSHING1 tip in cytorich red; 2 CytospinsCollected: 02/06/17Received: [facility]/17[facility], [address] [place] [address], [facility], [facility] of [facility], [address] [place] [address], [id number] 13:01:00 Medical Cytology Report Case: [id number] Authorizing Provider: Sohan Westfallo, Collected: 02/06/2017 1345 Ordering Location: [address] Received: 02/06/2017 1531 Service Pathologist: Kian Amado MD Specimen: Lung, Left Upper Lobe LEFT UPPER LOBE LUNG BRONCHIAL BRUSHING (CYTOSPINS): - NO MALIGNANT CELLS IDENTIFIED Signing Pathologist Direct Phone Line: [phone] signed by Kian Amado MD on 02/07/2017 at 1:01 [id number] perfomed which did show some bilateral ground glass opacities and RLL mild bronchiectasisLEFT UPPER LOBE LUNG BRONCHIAL BRUSHING1 tip in cytorich red; 2 cytospinsCollected: 02/06/17Received: 02/06/17Sa[facility], [facility] of [facility], [address] [place] [address], [facility]mvdK[facility], Department of P athology, [address] [place] [address], [id number] 2017-02-07 13:00:00Medical Cytology Report Case: [id number] Authorizing Provider: Sohan Westfall, Collected: 02/06/2017 1340 MD Ordering Location: [address] Received: 02/06/2017 1531 Service Pathologist: Kian Amado MD Specimen: Lung, Right Upper Lobe RIGHT UPPER LOBE LUNG (CYTOSPINS): - NO MALIGNANT CELLS IDENTIFIED - FEW ACUTE INFLAMMATORY CELLS PRESENT - The GMS stains are negative for Pneumocystis organisms and other fungi. - No viral inclusions are seen. Signing Pathologist Direct Phone Line: [phone] signed by Kian Amado MD on 02/07/2017 at 1:00 [id number], [id number] perfomed which did show some bilateral ground glass opacities and RLL mild bronchiectasisRIGHT UPPER LOBE LUNG20 ml of cytorich red; 3 Cytospins, 1 GMSCollected: 02/06/17Received: 02/06/17SatisfactoryThe following special studies were performed on this case and the interpretation is incorporated in the diagnostic report above:[facility], Department of Pathology, [address] [place] [address], JtzmorK[facility], Department of Pathology, [address] [place] [address], RPDQKSIP 2017-02-07 12:58:00Medical Cytology Report Case: [id number] Authorizing Provider: Sohan Westfall, Collected: 02/06/2017 1306 MD Ordering Location: [address] Received: 02/06/2017 0239 Service Pathologist: Kian Amado MD Specimen: Lung, Left Upper Lobe LEFT UPPER LOBE LUNG (CYTOSPINS AND GMS) - NO MALIGNANT CELLS IDENTIFIED FEW ACUTE INFLAMMATORY CELLS PRESENT The GMS stains are negative for Pneumocystis organisms and other fungi. No viral inclusions are seen. Signing Pathologist Direct Phone Line: [phone] signed by Kian Amado MD on 02/07/2017 at 12:58 [id number], [id number] perfomed which did show some bilateral ground glass opacities and RLL mild bronchiectasisLEFT UPPER LOBE LUNG20 ml of cytorich red; 3 Cytospins, 1GMSCollected: 02/06/17Received: 02/06/17SatisfactoryThe following special studies were performed on this case and the interpretation is incorporated in the diagnostic report above:[facility], Department of Pathology, [address] [place] [address], IznbdwK[facility], Department of Pathology, [address] [place] [address], XLJO- GLUCOSE [id number] 12:20:00* Test Item Value Reference Range Comments POC-GLUCOSE METER (BEAKER) (test orll=9235) 181 mg/dL 70-110 TESTED AT [address] [address] POCT-GLUCOSE [id number] 08:45:00* Test Item Value Reference Range Comments POC-GLUCOSE METER (BEAKER) (test knvu=7892) 229 mg/dL 70-110 TESTED AT [address] [address] HEPATIC FUNCTION [id number] 05:27:00* Test Item Value Reference Range Comments TOTAL PROTEIN (BEAKER) (test mbfi=934) 6.6 gm/dL 6.0-8.3 ALBUMIN (BEAKER) (test inar=9266) 3.4 g/dL 3.5-5.0 BILIRUBIN TOTAL (BEAKER) (test jdub=840) 0.5 mg/dL 0.2-1.2 BILIRUBIN DIRECT (BEAKER) (test cium=900) 0.3 mg/dL 0.1-0.5 ALKALINE PHOSPHATASE (BEAKER) (test dfci=771) 46 U/L 40-150 AST (SGOT) (BEAKER) (test xnzp=857) 21 U/L 5-34 ALT (SGPT) (BEAKER) (test mcyn=252) 16 U/L 6-55 [id number] 04:47:00* Test Item Value Reference Range Comments MAGNESIUM (BEAKER) (test uwbr=008) 1.5 mg/dL 1.6-2.6 BASIC METABOLIC [id number] 04:47:00* Test Item Value Reference Range Comments SODIUM (BEAKER) (test zypm=068) 133 meq/L 136-145 POTASSIUM (BEAKER) (test dlcn=394) 4.4 meq/L 3.5-5.1 CHLORIDE (BEAKER) (test oouz=420) 102 meq/L 98-107 CO2 (BEAKER) (test wruf=253) 24 meq/L 22-29 BLOOD UREA NITROGEN (BEAKER) (test almn=934) 16 mg/dL 7-21 CREATININE (BEAKER) (test ksfd=888) 0.80 mg/dL 0.57-1.25 GLUCOSE RANDOM (BEAKER) (test ufzv=151) 264 mg/dL 70-105 CALCIUM (BEAKER) (test jfvu=287) 9.3 mg/dL 8.4-10.2 EGFR (BEAKER) (test umet=6523) 94 mL/min/1.73 sq m ESTIMATED GFR IS NOT ACCURATE CREATININE CLEARANCE IN PREDICTING GLOMERULAR FILTRATION RATE. ESTIMATED GFR IS NOT APPLICABLE FOR DIALYSIS PATIENTS. PT/[id number] 04:32:00* Test Item Value Reference Range Comments PROTIME (BEAKER) (test tirg=770) 14.5 seconds 11.7-14.7 INR (BEAKER) (test odnj=560) 1.1 <=5.9 PARTIAL THROMBOPLASTIN TIME (BEAKER) (test eqsz=112) 43.0 seconds 22.5-36.0 RECOMMENDED COUMADIN/WARFARIN INR THERAPY RANGESSTANDARD DOSE: 2.0 - 3.0 Inclu shay: PROPHYLAXIS for venous thrombosis, systemic embolization; TREATMENT for lu ous thrombosis and/or pulmonary embolus.HIGH RISK: Target INR is 2.5-3.5 for pat ients with mechanical heart valves.POCT-GLUCOSE [id number] 21:06:00* Test Item Value Reference Range Comments POC-GLUCOSE METER (BEAKER) (test lsex=2482) 290 mg/dL 70-[address] [facility] [address] [facility] [address] BODY FLUID CELL COUNT WITH [id number] 20:01:00* Test Item Value Reference Range Comments APPEARANCE FLUID (BEAKER) (test nvtd=081) Slightly Hazy Clear COLOR FLUID (BEAKER) (test fvhz=202) Colorless Colorless, Straw RBC FLUID (BEAKER) (test bbkg=876) 1480 /cu mm <=1 ADJUSTED WBC FLUID (BEAKER) (test wvuh=2522) 245 /cu mm <=5 LINING CELLS (BEAKER) (test aefq=7994) 0 /cu mm <=1 NEUTROPHILS FLUID (BEAKER) (test vmlc=0454) 24 % LYMPHS FLUID (BEAKER) (test lpsg=776) 15 % MONO/MACROPHAGE FLUID (BEAKER) (test wpre=902) 58 % EOSINOPHILS FLUID (BEAKER) (test cdws=422) 2 % BASO FLUID (BEAKER) (test inec=504) 1 % CONTAINER BODY FLUID (BEAKER) (test qbpn=4130) EDTA Tube BODY FLUID CELL COUNT WITH [id number] 20:00:00* Test Item Value Reference Range Comments APPEARANCE FLUID (BEAKER) (test fbmt=169) Hazy Clear COLOR FLUID (BEAKER) (test sgno=591) Colorless Colorless, Straw RBC FLUID (BEAKER) (test fujl=762) 1330 /cu mm <=1 ADJUSTED WBC FLUID (BEAKER) (test nvpw=7521) 258 /cu mm <=5 LINING CELLS (BEAKER) (test xnbj=7899) 0 /cu mm <=1 NEUTROPHILS FLUID (BEAKER) (test icnk=6051) 35 % LYMPHS FLUID (BEAKER) (test jost=272) 23 % MONO/MACROPHAGE FLUID (BEAKER) (test jhmh=276) 41 % EOSINOPHILS FLUID (BEAKER) (test fuzj=229) 1 % BASO FLUID (BEAKER) (test srvk=334) 0 % CONTAINER BODY FLUID (BEAKER) (test jyfm=8565) EDTA Tube LEGIONELLA ANTIGEN, [id number] 19:27:00* Test Item Value Reference Range Comments L. PNEUMOPHILA SEROGP 1 UR AG (BEAKER) (test mwna=8236) Negative - see comment Negative for L. pneumophila serogroup 1 antigen, suggesting no recent or current infection with this serogroup. Legionellosis cannot be ruled out since other serogroups and species may cause disease. STREP PNEUMONIAE [id number] 19:27:00* Test Item Value Reference Range Comments STREP PNEUMONIAE ANTIGEN (BEAKER) (test fqon=9662) Presumptive negative for pneumococcal pneumonia - see comment Presumptive negative for pneumococcal pneumonia - see commen Presumptive negative for pneumococcal pneumonia, suggesting no current or recent pneumococcal infection. Infection due to S. pneumoniae cannot be ruled out since the antigen present in the sample may be below the detection limit of the test. CYTOLOGY [id number] 17:00:00* Test Item Value Reference Range Comments CYTOLOGY RESULT POINTER (BEAKER) (test rcyf=6781) See Separate Report CYTOLOGY [id number] 17:00:00* Test Item Value Reference Range Comments CYTOLOGY RESULT POINTER (BEAKER) (test iezk=3818) See Separate Report CYTOLOGY [id number] 17:00:00* Test Item Value Reference Range Comments CYTOLOGY RESULT POINTER (BEAKER) (test lyzn=5498) See Separate Report CYTOLOGY [id number] 17:00:00* Test Item Value Reference Range Comments CYTOLOGY RESULT POINTER (BEAKER) (test vihf=1893) See Separate Report POCT-GLUCOSE [id number] 15:49:00* Test Item Value Reference Range Comments POC-GLUCOSE METER (BEAKER) (test bkdp=1189) 104 mg/dL 70-110 TESTED AT [place] [id number] [facility] [address] POCT-GLUCOSE [id number] 13:27:00* Test Item Value Reference Range Comments POC-GLUCOSE METER (BEAKER) (test qwvl=1022) 111 mg/dL 70-110 TESTED AT [address] [address] [id number] 07:41:00* Test Item Value Reference Range Comments MAGNESIUM (BEAKER) (test cwsz=884) 1.7 mg/dL 1.6-2.6 BASIC METABOLIC [id number] 07:41:00* Test Item Value Reference Range Comments SODIUM (BEAKER) (test ltps=643) 133 meq/L 136-145 POTASSIUM (BEAKER) (test vzmf=206) 3.8 meq/L 3.5-5.1 CHLORIDE (BEAKER) (test srcl=815) 101 meq/L 98-107 CO2 (BEAKER) (test qvgv=066) 20 meq/L 22-29 BLOOD UREA NITROGEN (BEAKER) (test kljj=554) 13 mg/dL 7-21 CREATININE (BEAKER) (test kmhz=133) 0.74 mg/dL 0.57-1.25 GLUCOSE RANDOM (BEAKER) (test xfok=584) 69 mg/dL 70-105 CALCIUM (BEAKER) (test tidx=029) 8.8 mg/dL 8.4-10.2 EGFR (BEAKER) (test lqev=4969) 103 mL/min/1.73 sq m ESTIMATED GFR IS NOT ACCURATE CREATININE CLEARANCE IN PREDICTING GLOMERULAR FILTRATION RATE. ESTIMATED GFR IS NOT APPLICABLE FOR DIALYSIS PATIENTS. HEPATIC FUNCTION [id number] 07:41:00* Test Item Value Reference Range Comments TOTAL PROTEIN (BEAKER) (test nxzf=417) 6.8 gm/dL 6.0-8.3 ALBUMIN (BEAKER) (test bchq=2882) 3.5 g/dL 3.5-5.0 BILIRUBIN TOTAL (BEAKER) (test cavi=055) 0.5 mg/dL 0.2-1.2 BILIRUBIN DIRECT (BEAKER) (test sxln=320) 0.3 mg/dL 0.1-0.5 ALKALINE PHOSPHATASE (BEAKER) (test jhbi=297) 43 U/L 40-150 AST (SGOT) (BEAKER) (test vywn=202) 19 U/L 5-34 ALT (SGPT) (BEAKER) (test kuwh=133) 15 U/L 6-55 POCT-GLUCOSE [id number] 07:12:00* Test Item Value Reference Range Comments POC-GLUCOSE METER (BEAKER) (test bhma=3390) 76 mg/dL 70-[address] [facility] [address] [facility] [address] [id number] 07:08:00* Test Item Value Reference Range Comments PROTIME (BEAKER) (test lqis=276) 14.4 seconds 11.7-14.7 INR (BEAKER) (test tqlw=733) 1.1 <=5.9 PARTIAL THROMBOPLASTIN TIME (BEAKER) (test rrnu=611) 33.0 seconds 22.5-36.0 RECOMMENDED COUMADIN/WARFARIN INR THERAPY RANGESSTANDARD DOSE: 2.0 - 3.0 Inclu shay: PROPHYLAXIS for venous thrombosis, systemic embolization; TREATMENT for lu ous thrombosis and/or pulmonary embolus.HIGH RISK: Target INR is 2.5-3.5 for pat ients with mechanical heart valves.CBC W/PLT COUNT & AUTO [id number] 06:50:00* Test Item Value Reference Range Comments WHITE BLOOD CELL COUNT (BEAKER) (test yfic=375) 7.6 K/ L 3.5-10.5 RED BLOOD CELL COUNT (BEAKER) (test jppt=334) 4.37 M/ L 4.63-6.08 HEMOGLOBIN (BEAKER) (test ljch=259) 11.5 GM/DL 13.7-17.5 HEMATOCRIT (BEAKER) (test bsul=123) 37.5 % 40.1-51.0 MEAN CORPUSCULAR VOLUME (BEAKER) (test pkxf=785) 85.8 fL 79.0-92.2 MEAN CORPUSCULAR HEMOGLOBIN (BEAKER) (test dwla=902) 26.3 pg 25.7-32.2 MEAN CORPUSCULAR HEMOGLOBIN CONC (BEAKER) (test jrqh=247) 30.7 GM/DL 32.3-36.5 RED CELL DISTRIBUTION WIDTH (BEAKER) (test ysqu=032) 13.9 % 11.6-14.4 PLATELET COUNT (BEAKER) (test xtgc=161) 199 K/CU MM 150-450 MEAN PLATELET VOLUME (BEAKER) (test nftm=822) 10.1 fL 9.4-12.4 NUCLEATED RED BLOOD CELLS (BEAKER) (test sfgj=368) 0 /100 WBC 0-0 NEUTROPHILS RELATIVE PERCENT (BEAKER) (test tfrn=077) 63 % LYMPHOCYTES RELATIVE PERCENT (BEAKER) (test ubgk=903) 26 % MONOCYTES RELATIVE PERCENT (BEAKER) (test cvrz=852) 8 % EOSINOPHILS RELATIVE PERCENT (BEAKER) (test vvmp=120) 2 % BASOPHILS RELATIVE PERCENT (BEAKER) (test yiqi=058) 0 % NEUTROPHILS ABSOLUTE COUNT (BEAKER) (test faxx=100) 4.79 K/ L 1.78-5.38 LYMPHOCYTES ABSOLUTE COUNT (BEAKER) (test leok=830) 1.93 K/ L 1.32-3.57 MONOCYTES ABSOLUTE COUNT (BEAKER) (test zucm=013) 0.62 K/ L 0.30-0.82 EOSINOPHILS ABSOLUTE COUNT (BEAKER) (test dmql=181) 0.16 K/ L 0.04-0.54 BASOPHILS ABSOLUTE COUNT (BEAKER) (test lrjv=295) 0.03 K/ L 0.01-0.08 IMMATURE GRANULOCYTES-RELATIVE PERCENT (BEAKER) (test zmky=6555) 0 % 0-1 POCT-GLUCOSE [id number] 00:06:00* Test Item Value Reference Range Comments POC-GLUCOSE METER (BEAKER) (test gzxr=9932) 208 mg/dL 70-[address] [facility] [address] [facility] [address] [address], CHEST WITH IV CONTRAST- PE TEST [id number] 15:05:00Reason for exam:-> SOBWhat is the patient's sedation requirement?->No SedationFINAL REPORT TECHNIQUE: CT scan of the chest WITH intravenous contrast. Dose modulation, iterative reconstruction, and/or weight-based adjustment of the mA/kV was utilized to reduce the radiation dose to as low as reasonably achievable. INDICATION: 76-year-old man with shortness of breath. COMPARISON: Chest CT 10/08/2015. FINDINGS: LINES/TUBES: None. PULMONARY ARTERIES: Proximal to the bifurcation of the main pulmonary artery, the main pulmonary artery is 2.3 cm in diameter. No filling defects within the pulmonary arteries to suggest pulmonary embolus. LUNGS AND AIRWAYS: Central airways are patent. Unchanged mild bronchiectasis, particularly in the right lower lobe. Interval wedge resection in the right lung base. Unchanged paraseptal emphysematous changes and subp leural reticulations, particularly in both lung bases. Bilateral groundglass att enuation, particularly in both lung bases. PLEURA: The pleural spaces are clear. HEART AND MEDIASTINUM: Few hypodense nodules in the visualized thyroid measure up to 1.4 cm. Slightly decreased size of multiple likely reactive mediastinal ly mph nodes. The heart and pericardium are within normal limits. Atherosclerotic c alcifications in the thoracic aorta and coronary arteries. Prior coronary artery bypass. SOFT TISSUES AND BONES: Degenerative changes of the visualized spine. U nchanged median sternotomy wires. UPPER ABDOMEN: Few hyperenhancing foci in the right hepatic lobe measure up to 1.4 cm. 2.1 cm simple exophytic cyst arises fro m the right upper pole. IMPRESSION:No pulmonary emboli. No significant change i n findings suggestive of pulmonary fibrosis. Bilateral groundglass opacities are nonspecific and may relate to known interstitial lung disease, however pneumonia cannot be excluded. Few indeterminate hyperenhancing foci in the visualized l iver. RECOMMENDATION:Contrast-enhanced abdomen MRI (liver protocol) may be obtai seymour to further characterize liver lesions. Signed: Doc Rodriguez MDReport Veri fied Date/Time: 02/05/2017 15:05:12 Reading Location: [facility] B1 C013Y CT Body Read ing Room 03: 05 PM [id number] 14:42:00* Test Item Value Reference Range Comments PROTIME (BEAKER) (test eksm=047) 14.1 seconds 11.7-14.7 INR (BEAKER) (test ljpn=531) 1.1 <=5.9 PARTIAL THROMBOPLASTIN TIME (BEAKER) (test dfkn=243) 33.1 seconds 22.5-36.0 RECOMMENDED COUMADIN/WARFARIN INR THERAPY RANGESSTANDARD DOSE: 2.0 - 3.0 Inclu shay: PROPHYLAXIS for venous thrombosis, systemic embolization; TREATMENT for lu ous thrombosis and/or pulmonary embolus.HIGH RISK: Target INR is 2.5-3.5 for pat ients with mechanical heart valves.PROTHROMBIN [id number] 14:41:00* Test Item Value Reference Range Comments PROTIME (BEAKER) (test dtbn=388) 14.1 seconds 11.7-14.7 INR (BEAKER) (test rmkt=017) 1.1 <=5.9 RECOMMENDED COUMADIN/WARFARIN INR THERAPY RANGESSTANDARD DOSE: 2.0 - 3.0 Inclu shay: PROPHYLAXIS for venous thrombosis, systemic embolization; TREATMENT for lu ous thrombosis and/or pulmonary embolus.HIGH RISK: Target INR is 2.5-3.5 for pat ients with mechanical heart valves.CREATINE KINASE (CK), TOTAL AND [id number] 12:43:00* Test Item Value Reference Range Comments CREATINE KINASE TOTAL (BEAKER) (test kebn=700) 115 U/L 29-200 CREATINE KINASE-MB (BEAKER) (test ijgx=368) 2.1 ng/mL 0.0-6.6 CREATINE KINASE-MB INDEX (BEAKER) (test eqyw=553) 1.8 % CK-MB Reference Range:<6.7 Normal6.7-10.0 Borderline>10.0 Abnormal TROPONIN [id number] 12:43:00* Test Item Value Reference Range Comments TROPONIN I (BEAKER) (test jpty=459) 0.13 ng/mL 0.00-0.03 Troponin I (TnI) levels must be interpreted in the context of the presenting sym ptoms and the clinical findings. Elevated TnI levels indicate myocardial damage, but are not specific for ischemic heart disease. Elevated TnI levels are seen in patients with other cardiac conditions (including myocarditis and congestive h eart failure), and slight TnI elevations occur in patients with other conditions , including sepsis, renal failure, acidosis, acute neurological disease, and per sistent tachyarrhythmia.B-TYPE NATRIURETIC FACTOR (BNP)2017-02-05 12:43:00* Test Item Value Reference Range Comments B-TYPE NATRIURETIC PEPTIDE (BEAKER) (test dnjo=832) 64 pg/mL 0-100 [id number] 12:37:00* Test Item Value Reference Range Comments MAGNESIUM (BEAKER) (test qsuo=430) 1.3 mg/dL 1.6-2.6 BASIC METABOLIC [id number] 12:37:00* Test Item Value Reference Range Comments SODIUM (BEAKER) (test szca=746) 135 meq/L 136-145 POTASSIUM (BEAKER) (test jzmr=432) 3.7 meq/L 3.5-5.1 CHLORIDE (BEAKER) (test cqrh=203) 98 meq/L 98-107 CO2 (BEAKER) (test kenp=167) 26 meq/L 22-29 BLOOD UREA NITROGEN (BEAKER) (test cetf=784) 20 mg/dL 7-21 CREATININE (BEAKER) (test hjsr=559) 0.77 mg/dL 0.57-1.25 GLUCOSE RANDOM (BEAKER) (test zmmd=048) 90 mg/dL 70-105 CALCIUM (BEAKER) (test shtw=747) 9.6 mg/dL 8.4-10.2 EGFR (BEAKER) (test qsdg=5186) 99 mL/min/1.73 sq m ESTIMATED GFR IS NOT ACCURATE CREATININE CLEARANCE IN PREDICTING GLOMERULAR FILTRATION RATE. ESTIMATED GFR IS NOT APPLICABLE FOR DIALYSIS PATIENTS. CBC W/PLT COUNT & AUTO [id number] 12:11:00* Test Item Value Reference Range Comments WHITE BLOOD CELL COUNT (BEAKER) (test tjch=196) 9.4 K/ L 3.5-10.5 RED BLOOD CELL COUNT (BEAKER) (test lyzd=223) 4.64 M/ L 4.63-6.08 HEMOGLOBIN (BEAKER) (test sixr=223) 12.3 GM/DL 13.7-17.5 HEMATOCRIT (BEAKER) (test qctp=415) 38.7 % 40.1-51.0 MEAN CORPUSCULAR VOLUME (BEAKER) (test qwhi=588) 83.4 fL 79.0-92.2 MEAN CORPUSCULAR HEMOGLOBIN (BEAKER) (test ybus=059) 26.5 pg 25.7-32.2 MEAN CORPUSCULAR HEMOGLOBIN CONC (BEAKER) (test ydiv=581) 31.8 GM/DL 32.3-36.5 RED CELL DISTRIBUTION WIDTH (BEAKER) (test wqmn=666) 14.0 % 11.6-14.4 PLATELET COUNT (BEAKER) (test wper=593) 225 K/CU MM 150-450 MEAN PLATELET VOLUME (BEAKER) (test xywv=076) 9.6 fL 9.4-12.4 NUCLEATED RED BLOOD CELLS (BEAKER) (test spsb=224) 0 /100 WBC 0-0 NEUTROPHILS RELATIVE PERCENT (BEAKER) (test zlsh=632) 74 % LYMPHOCYTES RELATIVE PERCENT (BEAKER) (test papj=145) 16 % MONOCYTES RELATIVE PERCENT (BEAKER) (test eoxc=335) 8 % EOSINOPHILS RELATIVE PERCENT (BEAKER) (test vsnm=551) 2 % BASOPHILS RELATIVE PERCENT (BEAKER) (test csuz=634) 0 % NEUTROPHILS ABSOLUTE COUNT (BEAKER) (test zevq=897) 6.94 K/ L 1.78-5.38 LYMPHOCYTES ABSOLUTE COUNT (BEAKER) (test vkjt=481) 1.51 K/ L 1.32-3.57 MONOCYTES ABSOLUTE COUNT (BEAKER) (test vdkv=960) 0.74 K/ L 0.30-0.82 EOSINOPHILS ABSOLUTE COUNT (BEAKER) (test hpqw=207) 0.14 K/ L 0.04-0.54 BASOPHILS ABSOLUTE COUNT (BEAKER) (test epou=174) 0.03 K/ L 0.01-0.08 IMMATURE GRANULOCYTES-RELATIVE PERCENT (BEAKER) (test gikp=5525) 1 % 0-1 AFB CULTURE + [id number] 08:57:00* Test Item Value Reference Range Comments CULTURE (BEAKER) (test oizy=0712) No acid-fast bacilli isolated in 42 days AFB SMEAR (BEAKER) (test keps=151) No acid fast bacilli seen AFB CULTURE + [id number] 08:57:00* Test Item Value Reference Range Comments CULTURE (BEAKER) (test pegt=4161) No acid-fast bacilli isolated in 42 days AFB SMEAR (BEAKER) (test qblc=351) No acid fast bacilli seen AFB CULTURE + [id number] 08:57:00* Test Item Value Reference Range Comments CULTURE (BEAKER) (test fwyl=6587) No acid-fast bacilli isolated in 42 days AFB SMEAR (BEAKER) (test ulaj=165) No acid fast bacilli seen FUNGUS CULTURE + [id number] 07:23:00* Test Item Value Reference Range Comments CULTURE (BEAKER) (test yfif=6801) No fungus isolated in 28 days FUNGUS SMEAR (BEAKER) (test gpsw=4564) No fungi seen FUNGUS CULTURE + [id number] 07:23:00* Test Item Value Reference Range Comments CULTURE (BEAKER) (test bgyx=3597) No fungus isolated in 28 days FUNGUS SMEAR (BEAKER) (test cfei=1713) No fungi seen FUNGUS CULTURE + [id number] 07:23:00* Test Item Value Reference Range Comments CULTURE (BEAKER) (test lkdt=9079) No fungus isolated in 28 days FUNGUS SMEAR (BEAKER) (test xlyg=4719) No fungi seen ANAEROBIC [id number] 03:30:00* Test Item Value Reference Range Comments CULTURE (BEAKER) (test vjne=3416) No anaerobes isolated ANAEROBIC [id number] 03:30:00* Test Item Value Reference Range Comments CULTURE (BEAKER) (test javg=3751) No anaerobes isolated ANAEROBIC [id number] 03:30:00* Test Item Value Reference Range Comments CULTURE (BEAKER) (test gukp=6383) No anaerobes isolated TISSUE [id number] 11:17:00Surgical Pathology Report Case: [id number] Authorizing Provider: Sony Justin MD Collected: 10/25/2016 0903 Ordering Location: [facility] Received: 10/25/2016 1511 PERIOPERATIVE SERVICES Pathologist: Kian Amado MD Specimens: A) - Lung, Right Middle Lobe B) - Lung, Right Upper Lobe C) - Lung, Right Lower Lobe LUNG, RIGHT MIDDLE, UPPER, AND LOWER LOBES, WEDGE RESECTION (A THROUGH C): - CHRONIC FIBROSING INTERSTITIAL PNEUMONITIS (SEE COMMENT) Sections from right middle, upper and lower lobes show similar features with fibrosis, chronic inflammation, honeycomb changes and fibroblastic foci. No active inflammation, viral cytopathic effect, granuloma, rheumatoid nodules, dysplasia or malignancy is seen. This pattern of fibrosis can be seen in patients with collagen vascular diseases, environmental exposures, drug toxicity, remote infections, and others. In addition, this pattern of fibrosis, in the appropriate clinical and radiologic setting, can be seen in patients with usual interstitial pneumonia (UIP). Therefore, clinical correlation is strongly recommended.Intradepartmental consultation: Drs. Fidencio Reyes and Jamie Hughes have reviewed this case and concur with the diagnosis.30149 X 3Bilateral ITL A. Right middle lobe lung; B. Right upper lobe lung; C. Right lower lobe lungSpecimen A: Received fresh labeled "lung, right middle lobe" is a 4.5 x 1.5 x 1.0 cm wedge of pulmonary parenchyma. The pleural surface is is purple schuler, wrinkled and cobbled. The specimen is serially sectioned to reveal pink-schuler to moreland-white, homogeneous, consolidated pulmonary parenchyma throughout. No discrete masses are identified. The specimen is entirely submitted in cassettes A1-A5. Specimen B: Received fresh labeled "lung, right upper lobe" is a 3.0 x 2.0 x 1.0 cm wedge of pulmonary parenchyma. The pleural surface is purple-schuler, wrinkled and cobbled. The specimen is serially sectioned to reveal pink-schuler to moreland-white homogeneous, consolidated pulmonary parenchyma throughout. No discrete masses are identified. The specimen is entirely submitted in cassettes B1-B3. Specimen C: Received fresh labeled "lung, right lower lobe" is a 5.5 x 2.5 x 0.6 cm wedge of pulm onary parenchyma. The pleural surface is purple-schuler to moreland-white, wrinkled and cobbled. The specimen is serially sectioned to reveal pink-schuler to moreland-white, ho mogeneous, consolidate pulmonary parenchyma throughout. No discrete masses are i dentified. The specimen is entirely submitted in cassette C1-C6. DB/Ladarius to C- Pe rformed.SURGICALLY OBTAINED CULTURE + GRAM [id number] 09:03:00* Test Item Value Reference Range Comments CULTURE (BEAKER) (test odql=4390) No growth GRAM STAIN RESULT (BEAKER) (test gczc=0584) 1+ WBCs GRAM STAIN RESULT (BEAKER) (test ylvf=29139) No organisms seen SURGICALLY OBTAINED CULTURE + GRAM [id number] 09:03:00* Test Item Value Reference Range Comments CULTURE (BEAKER) (test jvmu=1624) No growth GRAM STAIN RESULT (BEAKER) (test yjmv=2539) <1+ WBCs GRAM STAIN RESULT (BEAKER) (test rchv=79943) No organisms seen SURGICALLY OBTAINED CULTURE + GRAM [id number] 09:01:00* Test Item Value Reference Range Comments CULTURE (BEAKER) (test tnbp=1068) No growth GRAM STAIN RESULT (BEAKER) (test qnkb=5493) <1+ WBCs GRAM STAIN RESULT (BEAKER) (test fkim=22158) No organisms seen BLOOD GAS, [id number] 08:34:00* Test Item Value Reference Range Comments PH ARTERIAL (BEAKER) (test bebw=202) 7.40 7.35-7.45 PCO2 ARTERIAL (BEAKER) (test xjcz=881) 42 mmHg 35-45 PO2 ARTERIAL (BEAKER) (test vidn=344) 139 mmHg 80-90 O2 SATURATION ARTERIAL (BEAKER) (test xlqo=855) 98.8 % 96.0-97.0 HCO3 ARTERIAL (BEAKER) (test cycv=218) 26 mmol/L 21-29 BASE EXCESS ARTERIAL (BEAKER) (test foop=112) 0.5 mmol/L -2.0-3.0 PATIENT TEMPERATURE (BEAKER) (test dkdy=0331) 36.1 C FIO2 (BEAKER) (test ishj=8565) 70.0 % GLUCOSE-STAT [id number] 08:34:00* Test Item Value Reference Range Comments GLUCOSE RANDOM (BEAKER) (test vxzi=402) 160 mg/dL 70-110 HGB/HCT (H&H) - STAT [id number] 08:34:00* Test Item Value Reference Range Comments HEMOGLOBIN (BEAKER) (test txyk=907) 11.3 g/dL 13.0-16.8 HEMATOCRIT (BEAKER) (test voej=703) 33.0 % 40.0-50.0 SODIUM NA-STAT [id number] 08:32:00* Test Item Value Reference Range Comments SODIUM (BEAKER) (test uevp=556) 138 meq/L 135-148 POTASSIUM-STAT [id number] 08:32:00* Test Item Value Reference Range Comments POTASSIUM (BEAKER) (test lyui=249) 3.9 meq/L 3.6-5.5 CALCIUM, [id number] 08:32:00* Test Item Value Reference Range Comments CALCIUM IONIZED (BEAKER) (test btms=638) 1.19 mmol/L 1.12-1.27 PH, BLOOD (BEAKER) (test wydx=4227) 7.39 POCT-GLUCOSE [id number] 06:52:00* Test Item Value Reference Range Comments POC-GLUCOSE METER (BEAKER) (test cmjc=7364) 196 mg/dL 70-[address] [facility] [address] [facility] [address] BASIC METABOLIC [id number] 11:06:00* Test Item Value Reference Range Comments SODIUM (BEAKER) (test vycg=279) 139 meq/L 136-145 POTASSIUM (BEAKER) (test xubx=446) 3.8 meq/L 3.5-5.1 CHLORIDE (BEAKER) (test iwee=491) 100 meq/L 98-107 CO2 (BEAKER) (test kchp=817) 28 meq/L 22-29 BLOOD UREA NITROGEN (BEAKER) (test ownh=733) 16 mg/dL 7-21 CREATININE (BEAKER) (test qewk=011) 0.91 mg/dL 0.57-1.25 GLUCOSE RANDOM (BEAKER) (test xioi=240) 157 mg/dL 70-105 CALCIUM (BEAKER) (test syxb=985) 10.1 mg/dL 8.4-10.2 EGFR (BEAKER) (test ckyu=8735) 81 mL/min/1.73 sq m ESTIMATED GFR IS NOT ACCURATE CREATININE CLEARANCE IN PREDICTING GLOMERULAR FILTRATION RATE. ESTIMATED GFR IS NOT APPLICABLE FOR DIALYSIS PATIENTS. PROTHROMBIN [id number] 11:01:00* Test Item Value Reference Range Comments PROTIME (BEAKER) (test srgk=182) 13.2 seconds 11.7-14.7 INR (BEAKER) (test skly=117) 1.0 <=5.9 RECOMMENDED COUMADIN/WARFARIN INR THERAPY RANGESSTANDARD DOSE: 2.0 - 3.0 Inclu shay: PROPHYLAXIS for venous thrombosis, systemic embolization; TREATMENT for lu ous thrombosis and/or pulmonary embolus.HIGH RISK: Target INR is 2.5-3.5 for pat ients with mechanical heart valves.CBC W/PLT COUNT & AUTO [id number] 10:53:00* Test Item Value Reference Range Comments WHITE BLOOD CELL COUNT (BEAKER) (test enuu=746) 8.1 K/ L 4.0-10.0 RED BLOOD CELL COUNT (BEAKER) (test slvm=419) 4.38 M/ L 4.20-5.80 HEMOGLOBIN (BEAKER) (test fzze=987) 12.2 GM/DL 13.0-16.8 HEMATOCRIT (BEAKER) (test kwmp=756) 38.5 % 40.0-50.0 MEAN CORPUSCULAR VOLUME (BEAKER) (test erng=437) 87.9 fL 82.0-98.0 MEAN CORPUSCULAR HEMOGLOBIN (BEAKER) (test jfbo=275) 27.9 pg 27.0-33.0 MEAN CORPUSCULAR HEMOGLOBIN CONC (BEAKER) (test hyrc=051) 31.7 GM/DL 32.0-36.0 RED CELL DISTRIBUTION WIDTH (BEAKER) (test ixpb=824) 14.3 % 10.3-14.2 PLATELET COUNT (BEAKER) (test ykgf=846) 141 K/CU MM 150-430 MEAN PLATELET VOLUME (BEAKER) (test uhhd=961) 8.4 fL 6.5-10.5 NUCLEATED RED BLOOD CELLS (BEAKER) (test qmiw=333) 0 /100 WBC 0-0 NEUTROPHILS RELATIVE PERCENT (BEAKER) (test apcf=601) 56 % LYMPHOCYTES RELATIVE PERCENT (BEAKER) (test gepj=405) 32 % MONOCYTES RELATIVE PERCENT (BEAKER) (test kusa=642) 7 % EOSINOPHILS RELATIVE PERCENT (BEAKER) (test ecac=240) 4 % BASOPHILS RELATIVE PERCENT (BEAKER) (test ygef=057) 1 % NEUTROPHILS ABSOLUTE COUNT (BEAKER) (test ewel=443) 4.51 K/ L 1.80-8.00 LYMPHOCYTES ABSOLUTE COUNT (BEAKER) (test odjq=980) 2.54 K/ L 1.48-4.50 MONOCYTES ABSOLUTE COUNT (BEAKER) (test xnli=370) 0.59 K/ L 0.00-1.30 EOSINOPHILS ABSOLUTE COUNT (BEAKER) (test pnyi=801) 0.36 K/ L 0.00-0.50 BASOPHILS ABSOLUTE COUNT (BEAKER) (test dqqv=042) 0.07 K/ L 0.00-0.20 0.00
[2018-06-03] MEDS ORDERED: ASPIRIN 81 MG CHEW TAB PO ONE (11:00)
[2018-06-03 11:17] LABS: BASOPHILS % 0.1 % (0.0-1.0); EOSINOPHILS # (AUTO) 0.1 (0.0-0.4); EOSINOPHILS % 0.8 % (0.0-6.0); HEMATOCRIT 34.6 % (38.2-49.6); HEMOGLOBIN 11.3 g/dL (14.0-18.0); LYMPHOCYTES # (AUTO) 0.8 (1.0-3.2); LYMPHOCYTES % 8.7 % (18.0-39.1); MEAN CORPUSCULAR HEMOGLOBIN 27.4 pg (28-32); MEAN CORPUSCULAR HGB CONC 32.7 g/dL (31-35); MONOCYTES # (AUTO) 0.6 (0.2-0.8); MONOCYTES % 6.8 % (4.4-11.3); NEUTROPHILS # (AUTO) 7.2 (2.1-6.9); PLATELET COUNT 68 x10e3/uL (140-360); RED BLOOD COUNT 4.12 x10e6/uL (4.3-5.7); RED CELL DISTRIBUTION WIDTH 13.3 % (11.7-14.4)
[2018-06-03 11:39] LABS: ALANINE AMINOTRANSFERASE 25 IU/L (0-55); ALBUMIN 3.2 g/dL (3.5-5.0); ALBUMIN/GLOBULIN RATIO 1.1 (0.8-2.0); ALKALINE PHOSPHATASE 64 IU/L (40-150); ANION GAP 13.8 mmol/L (8-16); BLOOD UREA NITROGEN 24 mg/dL (7-26); BUN/CREATININE RATIO 27 (6-25); CALCIUM 9.4 mg/dL (8.4-10.2); CARBON DIOXIDE 27 mmol/L (22-29); CHLORIDE 98 mmol/L (98-107); CREATINE KINASE 17 IU/L (30-200); CREATININE, SERUM 0.89 mg/dL (0.72-1.25); EST GLOMERULAR FILTRATION RATE > 60 ML/MIN (60-); GLUCOSE 125 mg/dL (74-118); POTASSIUM 3.8 mmol/L (3.5-5.1); SODIUM 135 mmol/L (136-145)
--- NOTE | 2018-06-03 14:49 | NUR ---
Pt is sleeping. No distress is noted. Family is at the bedside. VSS.
--- NOTE | 2018-06-03 15:49 | Diagnostic Imaging Report ---
EXAM: CT Chest WITH contrast INDICATION: Shortness of breath. Reported history of pulmonary fibrosis. COMPARISON: None TECHNIQUE: Chest was scanned utilizing a multidetector helical scanner from the lung apex through the level of the adrenal glands without administration of IV contrast. Coronal and sagittal reformations were obtained. PE protocol was performed. IV CONTRAST: 100 mL of Isovue 370 RADIATION DOSE: Total DLP: 466.2 mGy*cm COMPLICATIONS: None FINDINGS: LINES/ TUBES: None. PULMONARY ARTERIES: The main pulmonary artery measures up to 2.8 cm. No evidence of pulmonary embolism to the segmental levels in the bilateral upper lobes, lingula, or middle lobe. The study is limited for the evaluation of pulmonary embolism to the segmental and subsegmental levels of the lower lobes secondary to motion. No lobar pulmonary embolism in the lower lobes. Apparent filling defect, for example in the segmental right lower lobe on series 2, image 63 is felt to more likely represent motion rather than pulmonary embolism. LUNGS AND AIRWAYS: The central airways are patent. There are multifocal fibrotic changes, most pronounced in the lower lobes with traction bronchiectasis, reticular opacities and groundglass opacities. There is evidence of honeycombing, most pronounced at lung bases. There are subpleural nodular consolidative opacities in the left upper lobe, measuring up to 1.8 cm on series 3, image 31 and 1.0 cm on image 30. There are postsurgical changes, status post likely wedge resection within the right lower lobe. Diffuse opacities and motion artifact limits evaluation for focal abnormalities. PLEURA: The pleural spaces are clear. HEART AND MEDIASTINUM: There is moderate pneumomediastinum, most pronounced adjacent to the esophagus, left mainstem bronchus, and in the upper mediastinum. No mediastinal, hilar or axillary lymphadenopathy. There is cardiomegaly. No evidence of pericardial effusion. Extensive coronary atherosclerosis prior CABG and coronary stents. Status post aortic valve replacement. Partially seen right sided thyroid hypodensity. Extensive atherosclerotic changes of the thoracic aorta and branch vessels. UPPER ABDOMEN: Limited non-contrast views of the upper abdomen show no abnormality within the visualized liver or spleen. Right-sided renal cyst. Cholelithiasis. BONES/SOFT TISSUES: Status post median sternotomy. A sclerotic lesion left lateral sixth rib likely represents bone island. IMPRESSION: Moderate pneumomediastinum most pronounced at the left mainstem bronchi, esophagus, and upper mediastinum. No evidence of pulmonary embolism to the segmental level in the upper lobes, lingula, or middle lobe. No evidence of lobar pulmonary embolism in the lower lobes. Motion artifact limits evaluation for segmental pulmonary embolism in the lower lobes. Apparent lower lobe segmental filling defects, are more likely to represent motion rather than pulmonary embolism. Fibrotic interstitial lung disease with honeycombing, most pronounced in the lower lobes. Differential includes UIP and fibrotic NSIP. Multifocal ground glass opacity may represent underlying fibrosis, although infectious process can have a similar appearance. Nodular consolidative opacities within the left upper lobe could represent nodular pneumonia or malignancy. The patient has a reported history of prior lung malignancy with post surgical changes in the right lower lobe. No prior cross sectional imaging is available for review. Correlation with any prior imaging if available is recommended. A follow-up chest CT is suggested in 6-8 weeks. The above findings were discussed with Dr. Caitlin Echols on 06/03/2018 at 3:30 PM, who responded indicating that the communication was understood. Partially seen right sided thyroid hypodensity, suggestive of nodule. Thyroid ultrasound may be considered for further evaluation. Signed by: Dr. Cy Antonio MD on 06/03/2018 3:46 PM
[2018-06-03] MEDS ORDERED: IOPAMIDOL 370 MG/ML 200 ML INFUS..BTL INJ ONE (19:29)
[2018-06-03] MEDS ORDERED: SODIUM CHLORIDE 0.9% 50ML 50 ML ONE (19:29)
[2018-06-03 19:59] VITALS: BP 101/49
== END 2018-06-03 20:15 | disposition short-term general hospital (02) ==
LOC: ER 10:16
DX: R06.00 Dyspnea, unspecified (principal); J96.01 Acute respiratory failure with hypoxia; J98.2 Interstitial emphysema; Z85.118 Personal history of other malignant neoplasm of bronchus and lung; Z87.891 Personal history of nicotine dependence
CPT/HCPCS: 36415; 71260; 80053; 82550; 82553; 82948; 83880; 84484; 85025; 99285; Q9967